=== PATIENT | male | born 1960 | race Caucasian/White ===

== ENCOUNTER 2023-05-30 10:16 | Inpatient (IN) | payer MEDICARE, OTHER ==
[2023-05-30] MEDS ORDERED: SODIUM CHLORIDE 0.9% 500 ML 500 ML IV STA (10:46)
--- NOTE | 2023-05-30 11:05 | XR ---
EXAMINATION TYPE: XR chest 2V DATE OF EXAM: 05/30/2023 COMPARISON: 05/30/2023 INDICATION: Difficulty breathing TECHNIQUE: Frontal and lateral views of the chest are obtained. FINDINGS: The heart size is normal. The pulmonary vasculature is normal. There is a large cavitary lesion with an air-fluid level. On the lateral projection this is estimated to measure 6.5 cm AP by 14.7 cm in craniocaudal dimension. This likely measures approximately 8.5 cm in transverse dimension on the frontal projection. Minimal posterior lateral effusion may be presen t. Left lung appears clear. Additional workup is recommended. IMPRESSION: 1. There appears be a large cavitary lesion with an air-fluid level posterior right lung. Additional workup is recommended.
[2023-05-30] MEDS: SODIUM CHLORIDE 0.9% 1,000 ML IV SCH ×2 (11:18→18:32)
[2023-05-30] MEDS ORDERED: NALOXONE 0.4 MG/ML 1 ML VIAL IV PRN (11:21)
[2023-05-30] MEDS ORDERED: ACETAMINOPHEN TAB 325 MG TAB PO PRN (11:21)
[2023-05-30] MEDS ORDERED: ONDANSETRON 4 MG/2 ML VIAL IVP PRN (11:21)
--- NOTE | 2023-05-30 11:26 | ED ---
General Adult HPI - General Chief complaint: Recheck/Abnormal Lab/Rx Stated complaint: abn US results Time Seen by Provider: 05/30/23 10:23 Source: patient, RN notes reviewed, old records reviewed Mode of arrival: ambulatory Limitations: no limitations - History of Present Illness Initial comments: 63-year-old male presenting for evaluation of effusion, likely empyema. Patient receives an ultrasound as an outpatient and was sent in by his optometric tech Dr. Lee for evaluation. Patient had pneumonia proximally 6 weeks ago which was treated with oral antibiotics. He's had poor appetite and weight loss over the past 6 weeks. Denies current fevers. - Related Data Allergies Allergy/AdvReac Type Severity Reaction Status Date / Time No Known Allergies Allergy Verified 05/30/23 10:43 Review of Systems ROS Statement: Those systems with pertinent positive or pertinent negative responses have been documented in the HPI. ROS Other: All systems not noted in ROS Statement are negative. Past Medical History Past Medical History: Diabetes Mellitus, Hyperlipidemia, Hypertension History of Any Multi-Drug Resistant Organisms: None Reported Past Surgical History: No Surgical Hx Reported Past Psychological History: No Psychological Hx Reported Smoking Status: Never smoker Past Alcohol Use History: Occasional Past Drug Use History: None Reported General Exam Limitations: no limitations General appearance: alert, in no apparent distress Head exam: Present: atraumatic, normocephalic Eye exam: Present: normal appearance, PERRL ENT exam: Present: normal exam Neck exam: Present: normal inspection. Absent: tenderness, meningismus Respiratory exam: Present: rhonchi, decreased breath sounds. Absent: respiratory distress, wheezes Cardiovascular Exam: Present: regular rate, normal rhythm GI/Abdominal exam: Present: soft. Absent: distended, tenderness, guarding Extremities exam: Present: normal capillary refill Neurological exam: Present: alert, oriented X3, CN II-XII intact. Absent: motor sensory deficit Psychiatric exam: Present: normal affect, normal mood Skin exam: Present: warm, dry, intact. Absent: cyanosis, diaphoretic Course Vital Signs 05/30/23 10:40 Temperature 98.4 F Pulse Rate 81 Respiratory 20 Rate Blood Pressure 78/50 O2 Sat by Pulse 96 Oximetry Medical Decision Making - Medical Decision Making Was pt. sent in by a medical professional or institution (, PA, MEDICAL DEVICE ASSEMBLER, urgent care, hospital, or long-term...) When possible be specific @ -Sent in by his optometric tech Dr. Lee Did you speak to anyone other than the patient for history (EMS, parent, family, police, friend...)? What history was obtained from this source @ -No Did you review nursing and triage notes (agree or disagree)? Why? @ -I reviewed and agree with nursing and triage notes Were old charts reviewed (outside hosp., previous admission, EMS record, old EKG, old radiological studies, urgent care reports/EKG's, long-term records)? Report findings @ -No old charts were reviewed Differential Diagnosis (chest pain, altered mental status, abdominal pain women, abdominal pain men, vaginal bleeding, weakness, fever, dyspnea, syncope, headache, dizziness, GI bleed, back pain, seizure, CVA, palpatations, mental health, musculoskeletal)? @ -Differential Dyspnea: Coronary syndrome, arrhythmia, tamponade, asthma, COPD, pulmonary embolism, pneumonia, pneumothorax, pulmonary effusion, anaphylaxis, diabetic ketoacidosis, flailed chest, pulmonary contusion, diaphragmatic rupture, anemia, neuromuscular, this is not meant to be an all-inclusive list. EKG interpreted by me (3pts min.). @ -Sinus rhythm rate of 81, UT interval 158, QRS duration 94, QTC 374, no ST segment elevation. X-rays interpreted by me (1pt min.). @ Chest x-ray showing fluid-filled lesion, possible empyema on the right lung field CT interpreted by me (1pt min.). @ -None done U/S interpreted by me (1pt. min.). @ -None done What testing was considered but not performed or refused? (CT, X-rays, U/S, labs)? Why? @ -None What meds were considered but not given or refused? Why? @ -None Did you discuss the management of the patient with other professionals (p rofessionals i.e. , PA, MEDICAL DEVICE ASSEMBLER, lab, RT, psych nurse, social media project manager, director of content and programming, teacher, chief creative officer, case maker)? Give summary @ -[Dr. Chaney Was smoking cessation discussed for >3mins.? @ -No Was critical care preformed (if so, how long)? @ -No Were there social determinants of health that impacted care today? How? (Homelessness, low income, unemployed, alcoholism, drug addiction, transportation, low edu. Level, literacy, decrease access to med. care, half-way, rehab)? @ -No Was there de-escalation of care discussed even if they declined (Discuss DNR or withdrawal of care, Hospice)? DNR status @ -No What co-morbidities impacted this encounter? (DM, HTN, Smoking, COPD, CAD, Cancer, CVA, ARF, Chemo, Hep., AIDS, mental health diagnosis, sleep apnea, morbid obesity)? @ -[Recent diagnosis of pneumonia Was patient admitted / discharged? Hospital course, mention meds given and route, prescriptions, significant lab abnormalities, going to OR and other pertinent info. @ -[63-year-old male presents from outpatient setting for evaluation of possible empyema. Patient sent in for further evaluation treatment. Workup initiated in the emergency department including laboratory testing, blood cultures, EKG, chest x-ray. Patient will be admitted with consult to pulmonology for possible drainage. Patient admitted to [facility]. Undiagnosed new problem with uncertain prognosis? @ -No Drug Therapy requiring intensive monitoring for toxicity (Heparin, Nitro, Insulin, Cardizem)? @ -No Were any procedures done? @ -No Diagnosis/symptom? @ -[Parapneumonic effusion, empyema Acute, or Chronic, or Acute on Chronic? @ -[Acute Uncomplicated (without systemic symptoms) or Complicated (systemic symptoms)? @ -default Side effects of treatment? @ -No Exacerbation, Progression, or Severe Exacerbation? @ -No Poses a threat to life or bodily function? How? (Chest pain, [place], [place], pneumonia, PE, COPD, DKA, ARF, appy, cholecystitis, CVA, Diverticulitis, Homicidal, Suicidal, threat to staff... and all critical care pts) @ -[Yes, sepsis Disposition Clinical Impression: Empyema lung, Parapneumonic effusion Disposition: ADMITTED IP TO THIS HOSP Condition: Stable Is patient prescribed a controlled substance at d/c from ED?: No Referrals: Pete Stock MD [Primary Care Provider] - 1-2 days Time of Disposition: 11:26
[2023-05-30 11:35] LABS: Basophils % (A) 0 %; Eosinophils # (A) 0.2 k/uL (0-0.7); Eosinophils % (A) 1 %; HCT 34.6 % (39.0-53.0); HGB 11.1 gm/dL (13.0-17.5); Hypochromasia Slight; Lymphocytes # (A) 5.1 k/uL (1.0-4.8); Lymphocytes % (A) 30 %; MCH 30.1 pg (25.0-35.0); MCHC 32.2 g/dL (31.0-37.0); MCV 93.5 fL (80.0-100.0); Monocytes # (A) 0.6 k/uL (0-1.0); Monocytes % (A) 3 %; Neutrophils # (A) 10.6 k/uL (1.3-7.7); Neutrophils % (A) 62 %; Platelet Count 405 k/uL (150-450); RDW 14.5 % (11.5-15.5)
[2023-05-30 11:45] LABS: Prothrombin Time 10.9 sec (9.0-12.0)
[2023-05-30 11:56] LABS: ALT 25 U/L (4-49); AST 18 U/L (17-59); African American GFR (CKD) >90 (>60 ml/min/1.73 sqM); Albumin 3.3 g/dL (3.5-5.0); Alkaline Phosphatase 109 U/L (38-126); Anion Gap 9 mmol/L; Blood Urea Nitrogen 33 mg/dL (9-20); Calcium 9.4 mg/dL (8.4-10.2); Carbon Dioxide 20 mmol/L (22-30); Chloride 107 mmol/L (98-107); Magnesium 1.7 mg/dL (1.6-2.3); Non-African American GFR(CKD) 83 (>60 ml/min/1.73 sqM); Potassium 4.5 mmol/L (3.5-5.1); Sodium 136 mmol/L (137-145); Total Bilirubin 0.4 mg/dL (0.2-1.3); Total Protein 6.9 g/dL (6.3-8.2)
[2023-05-30 12:03] LABS: NT-Pro-B-Type Natriuretic Pept 178 pg/mL
[2023-05-30 12:10] LABS: Glucose 49 mg/dL (74-99)
[2023-05-30] MEDS ORDERED: VANCOMYCIN IV PER PHARMACY 1 EACH MISC MISCELLANE PRN (12:18)
[2023-05-30] MEDS ORDERED: DEXTROSE 50% SYRINGE 50 ML IVP STA (12:19)
[2023-05-30] MEDS: VANCOMYCIN 1,500 MG in SODIUM CHLORIDE 0.9% 500 ML 500 ML IVPB SCH (12:42)
[2023-05-30 12:58] LABS: Glucose,Whole Blood 125 mg/dL (70-110)
--- NOTE | 2023-05-30 13:48 | P.HPIM ---
History of Present Illness H&P Date: 05/30/23 Chief Complaint: Empyema 63-year-old man with a medical history of diabetes, hypertension, hyperlipidemia presented for evaluation of right pleural effusion concerning for empyema. Apparently, patient was diagnosed with pneumonia in mid March and was prescribed antibiotics, however, has been continuing to have generalized fatigue, chills, weight loss of approximately 30 pounds in the last 1-1/2 months. He went to follow-up with his primary care physician who repeated a computed tomography scan of his chest which demonstrated loculated pleural effusion with air fluid l evel concerning for empyema. Patient was subsequently referred to pulmonology and originally had an appointment for June 26, however, his spouse called the office to move up the appointment due to concerns of increasing fatigue/weakness, chills and shortness of breath. He was seen by the pulm onology specialist today who repeated an x-ray which continued to show a loculated pleural effusion and empyema and out of concern asked that the patient presented to the hospital for further evaluation and need for drainage. Patient reports fevers, chills. Denies nausea, vomiting, palpitations. Reports chest pain, pleuritic in nature. Denies syncope, presyncope, cough. Reports dyspnea, especially with exertion. Denies abdominal pain, constipation, diarrhea, dysuria, dyschezia, numbness/weakness of the shoulders. In the emergency room, patient was afebrile, 78/50, heart rate 81, 96% on room air. CBC demonstrated leukocytosis to 17, anemia of 11.1, neutrophil predominant. Basic metabolic panel shows sodium of 136, CO2 of 20, BUN of 33, creatinine of 0.96. Glucose is 49. Liver function tests are unremarkable. BNP was 178. Initial troponin is less than 0.012. Coags are unremarkable. Chest x-ray shows right-sided pleural effusion as well as air fluid level in the mid chest on the right, left atrial enlargement, normal size heart, clear left lung parenchyma. EKG demonstrated normal sinus rhythm with borderline left axis deviation, borderline J-point elevation in leads 1, aVL. Case is discussed the emergency room provider and decision is made with the patient's hospital for further workup of empyema. All Systems reviewed and pertinent positives and negatives noted in HPI, all other symptoms are negative Gen: in no apparent distress, resting comfortably in bed Eyes: PERRL, no scleral injection or icterus HENT: normocephalic, atraumatic, good hearing acuity, moist mucous membranes Neck: no tracheal deviation, full range of motion Resp: good air exchange, breathing comfortably with no accessory muscle use, no tactile fremitus, diminished breath sounds on the right with crackles, no wheezing CVS: good distal perfusion x 4, no pitting edema, regular rate and rhythm with systolic crescendo decrescendo murmur heard best in the aortic space GI: soft, NTTP, ND, no hepatosplenomegaly : no suprapubic tenderness, no CVAT, gillespie catheter not present MSK: no clubbing, no cyanosis, no noted contractures of extremities Skin: no noted rashes, petechiae; temperature of skin is appropriate Neuro: moving all extremities without signs of weakness, CN II-XII intact Psych: cooperative, euthymic mood, insight and judgment intact Labs and imaging as above Assessment: Sepsis secondary to empyema Hypertension Hyperlipidemia Diabetes type 2 Plan: Vital signs reviewed and noted in the HPI Lab work reviewed and noted in the HPI EKG and CXR are personally interpreted and noted in the HPI Case was discussed with the Emergency Room provider and decision was made to admit the patient for empyema with sepsis Start vancomycin, Zosyn Follow-up blood cultures Pulmonology consult for drainage IV fluids: Normal saline 130 mL per hour Patient is full code Past Medical History Past Medical History: Diabetes Mellitus, Hyperlipidemia, Hypertension History of Any Multi-Drug Resistant Organisms: None Reported Past Surgical History: No Surgical Hx Reported Past Psychological History: No Psychological Hx Reported Smoking Status: Never smoker Past Alcohol Use History: Occasional Past Drug Use History: None Reported Medications and Allergies Home Medications Medication Instructions Recorded Confirmed Type Atorvastatin [Lipitor] 20 mg PO HS 05/30/23 05/30/23 History Dulaglutide [Trulicity] 1.5 mg SQ WE 05/30/23 05/30/23 History Ibuprofen [Motrin Ib] 800 mg PO BID 05/30/23 05/30/23 History Lisinopril-Hctz 20-12.5 mg 1 tab PO BID 05/30/23 05/30/23 History [Zestoretic 20-12.5] Pioglitazone [Actos] 15 mg PO HS 05/30/23 05/30/23 History glipiZIDE [Glucotrol] 10 mg PO BID 05/30/23 05/30/23 History metFORMIN HCL [Metformin HCl] 1,000 mg PO BID 05/30/23 05/30/23 History Allergies Allergy/AdvReac Type Severity Reaction Status Date / Time No Known Allergies Allergy Verified 05/30/23 11:45 Physical Exam Osteopathic Statement: *. No significant issues noted on an osteopathic structural exam other than those noted in the History and Physical/Consult. Vitals: Vital Signs Temp Pulse Resp BP Pulse Ox 05/30/23 13:41 97.8 F 75 19 111/60 96 05/30/23 12:22 75 18 114/49 96 05/30/23 11:33 18 05/30/23 11:30 98.8 F 78 18 116/57 95 05/30/23 10:40 98.4 F 81 20 78/50 96 Intake and Output 05/29/23 05/30/23 05/30/23 22:59 06:59 14:59 Other: Weight 95.708 kg Results CBC & Chem 7: 05/30/23 10:58 05/30/23 10:58 Labs: Abnormal Lab Results - Last 24 Hours (Table) 05/30/23 05/30/23 05/30/23 Range/Units 10:58 10:58 12:53 WBC 17.0 H (3.8-10.6) k/uL RBC 3.70 L (4.30-5.90) m/uL Hgb 11.1 L (13.0-17.5) gm/dL Hct 34.6 L (39.0-53.0) % Neutrophils # 10.6 H (1.3-7.7) k/uL Lymphocytes # 5.1 H (1.0-4.8) k/uL Sodium 136 L (137-145) mmol/L Carbon Dioxide 20 L (22-30) mmol/L BUN 33 H (9-20) mg/dL Glucose 49 L* (74-99) mg/dL POC Glucose (mg/dL) 125 H (70-110) mg/dL Albumin 3.3 L (3.5-5.0) g/dL
--- NOTE | 2023-05-30 13:56 | P.CNPUL ---
History of Present Illness Consult date: 05/30/23 Requesting physician: Pete Stock Reason for consult: dyspnea, cough, chest pain, pneumonia, pleural effusion, abnormal CXR/CT Chief complaint: Shortness of breath, chest pain, cough. History of present illness: Pulmonary consult dated 05/30/2023. 63-year-old male who was sent over to the emergency room, by my partner, for empyema, as a complication of a previous episode of pneumonia, and parapneumonic effusion. Apparently, the patient got sick back in March. He apparently saw his primary care doctor was treated for pneumonia. Subsequent to that, because he wasn't really getting any better, he had a CAT scan, followed by another CAT scan, which revealed a complex fluid collection in the right chest. The patient was seen by my partner today, and sent to the hospital for evaluation by interventional radiology for pigtail catheter placement, and instillation of TPA and alpha dornase. According to patient's , the patient hasn't been feeling well since mid March. He's been losing weight, poor color, and just not feeling well. He has had fever, cough, and some phlegm production. In addition, he's had some pain in the right chest and back area. The patient has a history of diabetes, hyperlipidemia, and hypertension. He is a lifelong nonsmoker. White count is 17,000, hemoglobin 11.1, hematocrit 34.6, and a platelet count of 405,000. Sodium 136, potassium 4.5, chlorides 107, CO2 20, anion gap 9, BUN 33, and creatinine 0.96. Glucose 49. Albumin 3.3. Chest x-ray shows an air-fluid level within the right chest, and either a large cavity and/or abscess. The p atient's currently on room air. He was given a dose of Rocephin and vancomycin. Review of Systems REVIEW OF SYSTEMS: CONSTITUTIONAL: Fatigue, weakness, poor color, weight loss. NEUROLOGIC: [ Negative.] HEENT: [ Negative.] CARDIAC: Posterior chest and right back pain. PULMONARY: Cough, shortness of breath, and sputum production. GI: Decreased appetite. : [Negative.] RHEUMATOLOGIC: [ Negative.] IMMUNOLOGIC: [ Negative.] ENDOCRINE: [Negative. ] DERMATOLOGIC: [Negative.] Past Medical History Past Medical History: Diabetes Mellitus, Hyperlipidemia, Hypertension History of Any Multi-Drug Resistant Organisms: None Reported Past Surgical History: No Surgical Hx Reported Past Psychological History: No Psychological Hx Reported Smoking Status: Never smoker Past Alcohol Use History: Occasional Past Drug Use History: None Reported Medications and Allergies Home Medications Medication Instructions Recorded Confirmed Type Atorvastatin [Lipitor] 20 mg PO HS 05/30/23 05/30/23 History Dulaglutide [Trulicity] 1.5 mg SQ WE 05/30/23 05/30/23 History Ibuprofen [Motrin Ib] 800 mg PO BID 05/30/23 05/30/23 History Lisinopril-Hctz 20-12.5 mg 1 tab PO BID 05/30/23 05/30/23 History [Zestoretic 20-12.5] Pioglitazone [Actos] 15 mg PO HS 05/30/23 05/30/23 History glipiZIDE [Glucotrol] 10 mg PO BID 05/30/23 05/30/23 History metFORMIN HCL [Metformin HCl] 1,000 mg PO BID 05/30/23 05/30/23 History Allergies Allergy/AdvReac Type Severity Reaction Status Date / Time No Known Allergies Allergy Verified 05/30/23 11:45 Physical Exam Osteopathic Statement: *. No significant issues noted on an osteopathic structural exam other than those noted in the History and Physical/Consult. Vitals: Vital Signs Temp Pulse Resp BP Pulse Ox 05/30/23 13:41 97.8 F 75 19 111/60 96 05/30/23 12:22 75 18 114/49 96 05/30/23 11:33 18 05/30/23 11:30 98.8 F 78 18 116/57 95 05/30/23 10:40 98.4 F 81 20 78/50 96 Intake and Output 05/29/23 05/30/23 05/30/23 22:59 06:59 14:59 Other: Weight 95.708 kg No acute distress, oriented 3. Currently on room air. Room air saturation is 96%. HEENT examination is grossly unremarkable. Neck supple. Full range of motion. No adenopathy thyromegaly or neck vein distention. Cardiovascular examination reveals regular rhythm rate. S1-S2 normal. No S3 or S4. No discernible murmur noted. Heart rate 75 bpm. Lungs reveal fairly diminished breath sounds on the right, with dullness throughout the right midlung and right lower lobe. Left lung is clear. No wheezes or crackles. Abdomen soft bowel sounds are heard. No masses or tenderness. Extremities are intact. No cyanosis clubbing or edema. Skin is without rash or lesion. Neurologic examination is brief but nonfocal. Results - Laboratory Findings CBC and BMP: 05/30/23 10:58 05/30/23 10:58 PT/INR, D-dimer PT 10.9 sec (9.0-12.0) 05/30/23 10:58 INR 1.0 (<1.2) 05/30/23 10:58 Abnormal lab findings: Abnormal Labs 05/30/23 05/30/23 05/30/23 10:58 10:58 12:53 WBC 17.0 H RBC 3.70 L Hgb 11.1 L Hct 34.6 L Neutrophils # 10.6 H Lymphocytes # 5.1 H Sodium 136 L Carbon Dioxide 20 L BUN 33 H Glucose 49 L* POC Glucose (mg/dL) 125 H Albumin 3.3 L - Diagnostic Findings Chest x-ray: image reviewed Assessment and Plan Assessment: Chronic respiratory illness characterized by weight loss, cough, phlegm production, fatigue, and chest pain, and an x-ray that suggested a fluid-filled abscess in the right chest. Recent episode of pneumonia, with an illness that began about 6 weeks ago. History of hypertension. History of diabetes. History of hyperlipidemia. Lifelong nonsmoker. Plan: Plan dated 05/30/2023. The patient actually looks very stable. He's on room air. He has received both vancomycin and Rocephin here in the emergency department. Interventional radiology will be consulted for possible placement of a pigtail catheter. After that, depending on output, the instillation of TPA, and, alpha dornase, might be beneficial, in improving drainage of the lung abscess. Additional recommendations and suggestions are forthcoming. The patient was seen in the emergency department. The plan is discussed with the patient and the patient's . Time with Patient: Greater than 30
[2023-05-30] MEDS: CEFEPIME 2 GM in SODIUM CHLORIDE 0.9% 100 ML IVPB SCH (17:18)
[2023-05-30 19:51] LABS: Glucose,Whole Blood 96 mg/dL (70-110)
[2023-05-30] MEDS ORDERED: RX INFO: IV CONTRAST WAS GIVEN 1 EACH MISC MISCELLANE PRN (22:15)
[2023-05-30] MEDS: ATORVASTATIN 20 MG TAB PO SCH (22:38)
--- NOTE | 2023-05-31 00:02 | CT ---
EXAM: CT Chest With Intravenous Contrast CLINICAL HISTORY: ITS.REASON CT Reason: Empyema TECHNIQUE: Axial computed tomography images of the chest with intravenous contrast. CTDI is 13.3 mGy and DLP is 503.8 mGy-cm. This CT exam was performed using one or more of the following dose reduction techniques: automated exposure control, adjustment of the mA and/or kV according to patient size, and/or use of iterative reconstruction technique. COMPARISON: No relevant prior studies available. FINDINGS: Lungs: Unremarkable. No mass. No consolidation. Pleural space: Collection of the right lung base with air-fluid level, concerning for intrapulmonary abscess versus empyema. Consider chest tube drainage of this collection, which may be infected. Heart: Cardiomegaly. No significant pericardial effusion. No significant coronary artery calcifications. Bones/joints: Degenerative changes of the spine. No acute fracture. No dislocation. Soft tissues: Unremarkable. Vasculature: Atherosclerotic changes of aorta. No thoracic aortic aneurysm. Lymph nodes: Unremarkable. No enlarged lymph nodes. Liver: Hepatic steatosis. IMPRESSION: Collection of the right lung base with air-fluid level, concerning for intrapulmonary abscess versus empyema. Consider chest tube drainage of this collection, which may be infected.
[2023-05-31] MEDS: CEFEPIME 2 GM in SODIUM CHLORIDE 0.9% 100 ML IVPB SCH ×3 (00:36→16:36)
[2023-05-31] MEDS: SODIUM CHLORIDE 0.9% 1,000 ML IV SCH (03:30)
[2023-05-31] MEDS: VANCOMYCIN 1,500 MG in SODIUM CHLORIDE 0.9% 500 ML 500 ML IVPB SCH ×3 (04:13→21:47)
[2023-05-31 08:00] LABS: Basophils % (A) 0 %; Eosinophils # (A) 0.2 k/uL (0-0.7); Eosinophils % (A) 1 %; HCT 32.5 % (39.0-53.0); HGB 10.4 gm/dL (13.0-17.5); Hypochromasia Slight; Lymphocytes # (A) 4.3 k/uL (1.0-4.8); Lymphocytes % (A) 30 %; MCHC 31.9 g/dL (31.0-37.0); MCV 93.9 fL (80.0-100.0); Mean Platelet Volume 8.3; Monocytes # (A) 0.6 k/uL (0-1.0); Monocytes % (A) 4 %; Neutrophils # (A) 8.8 k/uL (1.3-7.7); Neutrophils % (A) 62 %; Platelet Count 382 k/uL (150-450); RBC 3.46 m/uL (4.30-5.90); RDW 14.5 % (11.5-15.5); WBC 14.2 k/uL (3.8-10.6)
[2023-05-31 08:06] LABS: African American GFR (CKD) >90 (>60 ml/min/1.73 sqM); Anion Gap 9 mmol/L; Blood Urea Nitrogen 16 mg/dL (9-20); Calcium 9.1 mg/dL (8.4-10.2); Carbon Dioxide 20 mmol/L (22-30); Chloride 108 mmol/L (98-107); Glucose 117 mg/dL (74-99); Magnesium 1.5 mg/dL (1.6-2.3); Non-African American GFR(CKD) >90 (>60 ml/min/1.73 sqM); Potassium 4.7 mmol/L (3.5-5.1); Sodium 137 mmol/L (137-145)
[2023-05-31] MEDS ORDERED: DEXTROSE 50% SYRINGE 50 ML IVP PRN ×2 (08:25)
--- NOTE | 2023-05-31 08:28 | P.PN ---
Subjective Progress Note Date: 05/31/23 (seen at 1045) Patient is a 63-year-old male with diabetes, hypertension, and dyslipidemia who was directed to the ER by Dr. Helder newell due to concerns for empyema and right sided pleural effusion. Patient was initially diagnosed with pneumonia in March and was prescribed antibiotics he continued to have generalized fatigue and has lost approximately 30 pounds in the last 1-2 months. Primary care physician repeated CT of the chest which demonstrated loculated pleural effusion with air fluid levels and concern for empyema and the patient was subsequently referred to pulmonology. On his first appointment with pulmonology on 05/30 he was referred to the emergency department. On arrival to the ER he was hypotensive with a blood pressure of 78/50. Laboratory analysis was remarkable for white blood cell count of 17, hemoglobin 11.1, sodium 136, CO2 20, BUN 33, glucose of 49. Chest x-ray showed right-sided pleural effusion with air fluid levels in the mid chest, left atrial enlargement. The patient was subsequently admitted and pulmonary was consulted. Patient was started on cefepime, blood cultures were ordered, and he was started on fluids at 130 mL/h. he was seen by pulmonary who recommended pigtail catheter and continued IV antibiotics. Patient seen and examined at bedside. He is having some pain when the catheter was inserted. He denies any worsening shortness of breath. No nausea or vomiting. He does have lots of questions about how he'll be in the hospital and the plan for his hospitalization. I did answer based the best of my ability. Vital signs reviewed General: nontoxic, no distress, appears at stated age Cardiovascular: S1S2 reg, no murmur, positive posterior tibial pulse bilateral, Lungs: Diminished breath sounds right base bilateral, no rhonchi, no rales , no accessory muscle use Abdominal: soft, nontender to palpation, no guarding, no appreciable organomegaly Ext: no gross muscle atrophy, no edema b/l lower extremities, no contractures Neuro: CN II-XI grossly intact, no focal neuro deficits Psych: Alert, oriented, appropriate affect Assessment/Plan: Empyema versus intrapulmonary abscess s/p pig tail cath Sepsis Hypotension, resolved -Cefepime 2 g every 8 hours IV piggyback daily #2, Zosyn 1500 mg IV piggyback day #2 -Monitor creatinine and vancomycin troughs for toxicity -Pulmonary consult reviewed: Consult interventional radiology for pigtail catheter placement along with instillation of TPA - continue to hold lisinopril and HCTZ, follow BP Diabetes mellitus type II -Hold Actos, glipizide, metformin, and Trulicity -SSI - follow BS - check A1C Chronic: HTN HLD Imaging: CT chest: Right lung base with air-fluid level concern for intrapulmonary abscess versus empyema, consider chest tube drainage Data Review: Labs reviewed and remarkable for white blood cell count 14.2, hemoglobin 10.4, carbon dioxide 20, magnesium 1.5, glucose 117 Vitals reviewed in blood pressures have been 112/60 last night are up to 134/68 today, T-max last 24 hours 98.8, heart rate has been running in the 70s to 80s DVT prophylaxis: Lovenox after IR procedure Discussed with: Patient and Anticipated discharge date: Pending Clinical Course Anticipated discharge place: Pending Clinical Course This dictation was prepared using [employer] voice recognition software. Though every attempt is made to correct errors during dictation some may still exist. Objective - Vital Signs Vital signs: Vital Signs Temp 98 F 05/31/23 06:00 Pulse 80 05/31/23 06:00 Resp 22 05/31/23 06:00 BP 134/68 05/31/23 06:00 Pulse Ox 93 L 05/31/23 06:00 FiO2 Intake & Output 05/30/23 05/31/23 05/31/23 18:59 06:59 18:59 Weight 95.708 kg - Labs CBC & Chem 7: 05/31/23 07:28 05/31/23 07:28 Labs: Abnormal Lab Results - Last 24 Hours (Table) 05/30/23 05/30/23 05/30/23 Range/Units 10:58 10:58 12:53 WBC 17.0 H (3.8-10.6) k/uL RBC 3.70 L (4.30-5.90) m/uL Hgb 11.1 L (13.0-17.5) gm/dL Hct 34.6 L (39.0-53.0) % Neutrophils # 10.6 H (1.3-7.7) k/uL Lymphocytes # 5.1 H (1.0-4.8) k/uL Sodium 136 L (137-145) mmol/L Chloride (98-107) mmol/L Carbon Dioxide 20 L (22-30) mmol/L BUN 33 H (9-20) mg/dL Creatinine (0.66-1.25) mg/dL Glucose 49 L* (74-99) mg/dL POC Glucose (mg/dL) 125 H (70-110) mg/dL Magnesium (1.6-2.3) mg/dL Albumin 3.3 L (3.5-5.0) g/dL 05/31/23 05/31/23 Range/Units 07:28 07:28 WBC 14.2 H (3.8-10.6) k/uL RBC 3.46 L (4.30-5.90) m/uL Hgb 10.4 L (13.0-17.5) gm/dL Hct 32.5 L (39.0-53.0) % Neutrophils # 8.8 H (1.3-7.7) k/uL Lymphocytes # (1.0-4.8) k/uL Sodium (137-145) mmol/L Chloride 108 H (98-107) mmol/L Carbon Dioxide 20 L (22-30) mmol/L BUN (9-20) mg/dL Creatinine 0.55 L (0.66-1.25) mg/dL Glucose 117 H (74-99) mg/dL POC Glucose (mg/dL) (70-110) mg/dL Magnesium 1.5 L (1.6-2.3) mg/dL Albumin (3.5-5.0) g/dL
[2023-05-31] MEDS ORDERED: HYDROmorphone 0.5 MG/0.5 ML SYRINGE IVP STA (09:17)
[2023-05-31] MEDS ORDERED: HYDROmorphone 0.5 MG/0.5 ML SYRINGE IVP PRN (11:15)
[2023-05-31] MEDS ORDERED: LORazepam 2 MG/ML INJ IV PRN ×3 (11:20)
--- NOTE | 2023-05-31 11:45 | CT ---
EXAMINATION TYPE: CT chest tube insertion DATE OF EXAM: 05/31/2023 COMPARISON: CT scan 05/30/2023 HISTORY: Right sided chest tube. CT DLP: 1658 mGycm The procedure is discussed with the patient, the risks, complications, benefits and alternatives, wer e discussed and any questions were answered. Informed consent was obtained. The patient is placed p gracie on the CT table, prepped and draped in the usual sterile fashion. Utilizing a 22-gauge Chiba needle access into large right-sided cavitary lesion suspected to represen t pulmonary abscess was achieved with placement of L1 and L1 8 wire. There is conversion to a 0.035 s ystem, serial dilation 8 Amharic and placement of 8 Amharic drainage catheter. Samples sent to pathology for analysis. Pathology pending. All elements of maximal barrier in sterile technique were utilized. The patient remained stable thro ughout the procedure with no immediate postprocedural complication. IMPRESSION: 1. Successful CT guided chest tube insertion for suspected pulmonary abscess.
[2023-05-31 12:09] LABS: Glucose,Whole Blood 162 mg/dL (70-110)
[2023-05-31] MEDS: INSULIN ASPART (NovoLOG) 100 UNIT/ML VIAL SQ SCH ×2 (12:15→16:35)
[2023-05-31] MEDS: MAGNESIUM SULFATE-D5W PMX 1 GM in DEXTROSE/WATER 1 100ML.BAG IVPB SCH ×2 (12:17→20:48)
--- NOTE | 2023-05-31 12:18 | P.PN ---
Subjective Progress Note Date: 05/31/23 63-year-old male who was sent over to the emergency room, by my partner, for empyema, as a complication of a previous episode of pneumonia, and parapneumonic effusion. Apparently, the patient got sick back in March. He apparently saw his primary care doctor was treated for pneumonia. Subsequent to that, because he wasn't really getting any better, he had a CAT scan, followed by another CAT scan, which revealed a complex fluid collection in the right chest. The patient was seen by my partner today, and sent to the hospital for evaluation by interventional radiology for pigtail catheter placement, and instillation of TPA and alpha dornase. According to patient's , the patient hasn't been feeling well since mid March. He's been losing weight, poor color, and just not feeling well. He has had fever, cough, and some phlegm production. In addition, he's had some pain in the right chest and back area. The patient has a history of diabetes, hyperlipidemia, and hypertension. He is a lifelong nonsmoker. White count is 17,000, hemoglobin 11.1, hematocrit 34.6, and a platelet count of 405 ,000. Sodium 136, potassium 4.5, chlorides 107, CO2 20, anion gap 9, BUN 33, and creatinine 0.96. Glucose 49. Albumin 3.3. Chest x-ray shows an air-fluid level within the right chest, and either a large cavity and/or abscess. The patient's currently on room air. He was given a dose of Rocephin and vancomycin. The patient is seen today 05/31/2023 in follow-up, in the emergency department. He is currently sitting up on a stretcher. Awake and alert in no acute distress. Somewhat restless. He is maintaining good O2 saturations in the mid 90s on room air. He's afebrile. Hemodynamically stable. Computed tomography scan of the chest revealed a collection of the right lung base with air fluid level, concerning for intrapulmonary abscess versus empyema. White count 14.2. Hemoglobin 10.4. Platelets 382. Sodium 137. Potassium 4.7. Bicarb 20. BUN 16. Creatinine 0.55. Glucose 117. He is continued on cefepime and vancomycin. Plan is for pigtail catheter placement today by interventional radiology. Objective - Vital Signs Vital signs: Vital Signs Temp 98 F 05/31/23 06:00 Pulse 85 05/31/23 09:45 Resp 16 05/31/23 09:45 BP 152/76 05/31/23 09:45 Pulse Ox 96 05/31/23 09:45 FiO2 Intake & Output 05/30/23 05/31/23 05/31/23 18:59 06:59 18:59 Weight 95.708 kg - Exam GENERAL EXAM: Alert, 63-year-old male on room air, fairly comfortable in no apparent distress. HEAD: Normocephalic. EYES: Normal reaction of pupils, equal size. NOSE: Clear with pink turbinates. THROAT: No erythema or exudates. NECK: No masses, no JVD. CHEST: No chest wall deformity. LUNGS: Equal air entry with few scattered rhonchi in the right lung base. CVS: S1 and S2 normal with no audible murmur, regular rhythm. ABDOMEN: No hepatosplenomegaly, normal bowel sounds, no guarding or rigidity. SPINE: No scoliosis or deformity SKIN: No rashes CENTRAL NERVOUS SYSTEM: No focal deficits, tone is normal in all 4 extremities. EXTREMITIES: There is no peripheral edema. No clubbing, no cyanosis. Peripheral pulses are intact. - Labs CBC & Chem 7: 05/31/23 07:28 05/31/23 07:28 Labs: Abnormal Lab Results - Last 24 Hours (Table) 05/30/23 05/30/23 05/31/23 Range/Units 10:58 12:53 07:28 WBC 14.2 H (3.8-10.6) k/uL RBC 3.46 L (4.30-5.90) m/uL Hgb 10.4 L (13.0-17.5) gm/dL Hct 32.5 L (39.0-53.0) % Neutrophils # 10.6 H 8.8 H (1.3-7.7) k/uL Lymphocytes # 5.1 H (1.0-4.8) k/uL Chloride (98-107) mmol/L Carbon Dioxide (22-30) mmol/L Creatinine (0.66-1.25) mg/dL Glucose (74-99) mg/dL POC Glucose (mg/dL) 125 H (70-110) mg/dL Magnesium (1.6-2.3) mg/dL 05/31/23 05/31/23 Range/Units 07:28 12:07 WBC (3.8-10.6) k/uL RBC (4.30-5.90) m/uL Hgb (13.0-17.5) gm/dL Hct (39.0-53.0) % Neutrophils # (1.3-7.7) k/uL Lymphocytes # (1.0-4.8) k/uL Chloride 108 H (98-107) mmol/L Carbon Dioxide 20 L (22-30) mmol/L Creatinine 0.55 L (0.66-1.25) mg/dL Glucose 117 H (74-99) mg/dL POC Glucose (mg/dL) 162 H (70-110) mg/dL Magnesium 1.5 L (1.6-2.3) mg/dL Assessment and Plan Assessment: Chronic respiratory illness characterized by weight loss, cough, phlegm production, fatigue, and chest pain, and an x-ray that suggested a fluid-filled abscess in the right chest. The CAT scan of the chest reveals a collection of the right lung base with air fluid level, concerning for intrapulmonary abscess versus empyema. Plan is for pigtail catheter insertion today 05/31/2023 Recent episode of pneumonia, with an illness that began about 6 weeks ago. History of hypertension. History of diabetes. History of hyperlipidemia. Lifelong nonsmoker. Plan: The patient was seen and evaluated CAT scan, labs and medications reviewed Plan is for pigtail catheter insertion today Continued on vancomycin and cefepime Add [facility] protocol for possible alcohol withdrawal We will continue to follow and make further recommendations based on his clinical status I have personally seen and examined the patient, performed the documentation and the assessment and plan as written. Number of minutes spent on the visit: 10.
[2023-05-31] MEDS: HYDROcodone/APAP 7.5-325MG 1 EACH TAB PO PRN ×2 (12:40→20:02)
[2023-05-31 16:30] LABS: Glucose,Whole Blood 182 mg/dL (70-110)
[2023-05-31] MEDS: MELATONIN 5 MG TABLET PO SCH (20:02)
[2023-05-31] MEDS: ATORVASTATIN 20 MG TAB PO SCH (20:02)
[2023-05-31 20:13] LABS: Glucose,Whole Blood 213 mg/dL (70-110)
[2023-06-01] MEDS: CEFEPIME 2 GM in SODIUM CHLORIDE 0.9% 100 ML IVPB SCH ×3 (01:03→19:48)
[2023-06-01 03:05] LABS: Amylase, Fluid Source Pleural Fluid; Amylase,Body Fluid 16 U/L; T. Protein, Body Fluid Source Pleural Fluid; Total Protein, Body Fluid 3560 mg/dL
[2023-06-01 03:06] LABS: Appearance,BF Turbid (Clear)
[2023-06-01 03:56] LABS: Glucose, BF Source Pleural Fluid; Glucose, Body Fluid <2 mg/dL; LDH, Body Fluid Source Pleural Fluid
[2023-06-01] MEDS: VANCOMYCIN 1,500 MG in SODIUM CHLORIDE 0.9% 500 ML 500 ML IVPB SCH ×2 (05:35→16:43)
[2023-06-01 06:04] LABS: Glucose,Whole Blood 150 mg/dL (70-110)
[2023-06-01] MEDS: INSULIN ASPART (NovoLOG) 100 UNIT/ML VIAL SQ SCH ×3 (06:05→16:44)
--- NOTE | 2023-06-01 08:07 | XR ---
EXAMINATION TYPE: XR chest 1V portable DATE OF EXAM: 06/01/2023 HISTORY: Shortness of breath. COMPARISON: 05/30/2023 TECHNIQUE: Single view of the chest is submitted. FINDINGS: Right midlung zone pleural drainage catheter noted. No evidence for pneumothorax. Previously noted co llection is significantly smaller in size. Small right-sided pleural effusion. There is no evidence for focal infiltrate. The heart is stable. Hilar and mediastinal structures are within normal limits. Degenerative changes are seen of the dorsal spine. IMPRESSION: 1. As above
[2023-06-01] MEDS ORDERED: ENOXAPARIN 40 MG/0.4 ML SYRINGE SQ SCH (09:00)
[2023-06-01 09:05] LABS: HCT 31.9 % (39.0-53.0); HGB 10.2 gm/dL (13.0-17.5); Hypochromasia Slight; MCH 29.6 pg (25.0-35.0); MCHC 31.9 g/dL (31.0-37.0); MCV 92.8 fL (80.0-100.0); Mean Platelet Volume 7.8; Platelet Count 367 k/uL (150-450); RBC 3.44 m/uL (4.30-5.90); RDW 14.4 % (11.5-15.5); WBC 12.1 k/uL (3.8-10.6)
[2023-06-01 09:20] LABS: African American GFR (CKD) >90 (>60 ml/min/1.73 sqM); Anion Gap 6 mmol/L; Blood Urea Nitrogen 12 mg/dL (9-20); Calcium 8.9 mg/dL (8.4-10.2); Carbon Dioxide 24 mmol/L (22-30); Chloride 105 mmol/L (98-107); Glucose 250 mg/dL (74-99); Non-African American GFR(CKD) >90 (>60 ml/min/1.73 sqM); Potassium 4.9 mmol/L (3.5-5.1); Sodium 135 mmol/L (137-145)
[2023-06-01] MEDS: FOLIC ACID 1 MG TAB PO SCH (09:52)
[2023-06-01] MEDS: THIAMINE 100 MG TAB PO SCH (09:52)
--- NOTE | 2023-06-01 10:58 | P.PN ---
Subjective Progress Note Date: 06/01/23 Principal diagnosis: Empyema. 63-year-old male who was sent over to the emergency room, by my partner, for empyema, as a complication of a previous episode of pneumonia, and parapneumonic effusion. Apparently, the patient got sick back in March. He apparently saw his primary care doctor was treated for pneumonia. Subsequent to that, because he wasn't really getting any better, he had a CAT scan, followed by another CAT scan, which revealed a complex fluid collection in the right chest. The patient was seen by my partner today, and sent to the hospital for evaluation by interventional radiology for pigtail catheter placement, and instillation of TPA and alpha dornase. According to patient's , the patient hasn't been feeling well since mid March. He's been losing weight, poor color, and just not feeling well. He has had fever, cough, and some phlegm production. In addition, he's had some pain in the right chest and back area. The patient has a history of d iabetes, hyperlipidemia, and hypertension. He is a lifelong nonsmoker. White count is 17,000, hemoglobin 11.1, hematocrit 34.6, and a platelet count of 405,000. Sodium 136, potassium 4.5, chlorides 107, CO2 20, anion gap 9, BUN 33, and creatinine 0.96. Glucose 49. Albumin 3.3. Chest x-ray shows an air-fluid level within the right chest, and either a large cavity and/or abscess. The patient's currently on room air. He was given a dose of Rocephin and vancomycin. The patient is seen today 05/31/2023 in follow-up, in the emergency department. He is currently sitting up on a stretcher. Awake and alert in no acute distress. Somewhat restless. He is maintaining good O2 saturations in the mid 90s on room air. He's afebrile. Hemodynamically stable. Computed tomography scan of the chest revealed a collection of the right lung base with air fluid level, concerning for intrapulmonary abscess versus empyema. White count 14.2. Hemoglobin 10.4. Platelets 382. Sodium 137. Potassium 4.7. Bicarb 20. BUN 16. Creatinine 0.55. Glucose 117. He is continued on cefepime and vancomycin. Plan is for pigtail catheter placement today by interventional radiology. Progress note dated 06/01/2023. The patient is seen today in room 356. He is currently on room air. Is not receiving any IV fluids. He is receiving both vancomycin and cefepime for his suspected empyema. A pigtail catheter was placed on the right side, they interventional radiology yesterday. The patient had about 85 mL of output. White count 12.1, hemoglobin 10.2, hematocrit 31.9, within normal platelet cou nt. Sodium 135, potassium 4.9, chlorides 105, CO2 24, BUN 12, and creatinine 0.54. Cultures are currently pending. Chest x-ray shows a right-sided pigtail catheter, with improvement of the abscess in the right lower lobe. Objective - Vital Signs Vital signs: Vital Signs Temp 98.4 F 06/01/23 03:20 Pulse 87 06/01/23 03:20 Resp 18 06/01/23 03:20 BP 127/63 06/01/23 03:20 Pulse Ox 96 06/01/23 03:20 FiO2 Intake & Output 05/31/23 06/01/23 06/01/23 18:59 06:59 18:59 Output Total 307 1285 Balance -307 -1285 Weight 95.708 kg Output: Chest Tube Drainage 57 85 Pleural Catheter Right 57 85 Posterior Chest Urine 250 1200 Other: # Voids 3 - Exam No acute distress, oriented 3. Currently on room air. HEENT examination is grossly unremarkable. Mucous membranes are moist. No oral lesions. Neck supple. Full range of motion. No adenopathy thyromegaly or neck vein distention. Cardiovascular examination reveals regular rhythm rate. S1-S2 normal. No S3 or S4. No discernible murmur noted. Heart rate 87 bpm. Lungs reveal diminished breath sounds throughout the right midlung and right base. Scattered rhonchi noted. No wheezes or crackles. Abdomen soft bowel sounds are heard. No masses or tenderness. Extremities are intact. No cyanosis clubbing or edema. Skin is without rash or lesion. Neurologic examination is brief but nonfocal. - Labs CBC & Chem 7: 06/01/23 08:30 06/01/23 08:30 Labs: Abnormal Lab Results - Last 24 Hours (Table) 05/31/23 05/31/23 05/31/23 Range/Units 09:30 12:07 16:29 WBC (3.8-10.6) k/uL RBC (4.30-5.90) m/uL Hgb (13.0-17.5) gm/dL Hct (39.0-53.0) % Sodium (137-145) mmol/L Creatinine (0.66-1.25) mg/dL Glucose (74-99) mg/dL POC Glucose (mg/dL) 162 H 182 H (70-110) mg/dL Fluid Appearance Turbid A (Clear) 05/31/23 06/01/23 06/01/23 Range/Units 20:11 06:02 08:30 WBC 12.1 H (3.8-10.6) k/uL RBC 3.44 L (4.30-5.90) m/uL Hgb 10.2 L (13.0-17.5) gm/dL Hct 31.9 L (39.0-53.0) % Sodium (137-145) mmol/L Creatinine (0.66-1.25) mg/dL Glucose (74-99) mg/dL POC Glucose (mg/dL) 213 H 150 H (70-110) mg/dL Fluid Appearance (Clear) 06/01/23 Range/Units 08:30 WBC (3.8-10.6) k/uL RBC (4.30-5.90) m/uL Hgb (13.0-17.5) gm/dL Hct (39.0-53.0) % Sodium 135 L (137-145) mmol/L Creatinine 0.54 L (0.66-1.25) mg/dL Glucose 250 H (74-99) mg/dL POC Glucose (mg/dL) (70-110) mg/dL Fluid Appearance (Clear) Microbiology - Last 24 Hours (Table) 05/31/23 09:30 Gram Stain - Preliminary Pleural Fluid 05/30/23 10:50 Blood Culture - Preliminary Blood 05/30/23 11:23 Blood Culture - Preliminary Blood Assessment and Plan Assessment: Chronic respiratory illness characterized by weight loss, cough, phlegm production, fatigue, and chest pain, and an x-ray that suggested a fluid-filled abscess in the right chest. S/P pigtail catheter insertion, right posterior chest, 05/31/2023. Recent episode of pneumonia, with an illness that began about 6 weeks ago. History of hypertension. History of diabetes. History of hyperlipidemia. Lifelong nonsmoker. Plan: Plan dated 05/30/2023. The patient actually looks very stable. He's on room air. He has received both vancomycin and Rocephin here in the emergency department. Interventional radiology will be consulted for possible placement of a pigtail catheter. After that, depending on output, the instillation of TPA, and, alpha dornase, might be beneficial, in improving drainage of the lung abscess. Additional recommen dations and suggestions are forthcoming. The patient was seen in the emergency department. The plan is discussed with the patient and the patient's . Plan dated 06/01/2023. The patient continues on vancomycin and cefepime. A pigtail catheter was placed yesterday, May 31, by interventional radiology. About 85 mL of output was recorded. The patient's on room air. He's not receiving any IV drugs. Continue to follow and make recommendations along the way. Microbiology thus far negative. Prognosis is guarded. Time with Patient: Less than 30
[2023-06-01 11:45] LABS: Glucose,Whole Blood 200 mg/dL (70-110)
--- NOTE | 2023-06-01 14:08 | P.PN ---
Subjective Progress Note Date: 06/01/23 (delayed charting seen at 1030) Patient is a 63-year-old male with diabetes, hypertension, and dyslipidemia who was directed to the ER by Dr. Helder newell due to concerns for empyema and right sided pleural effusion. Patient was initially diagnosed with pneumonia in March and was prescribed antibiotics he continued to have generalized fatigue and has lost approximately 30 pounds in the last 1-2 months. Primary care physician repeated CT of the chest which demonstrated loculated pleural effusion with air fluid levels and concern for empyema and the patient was subsequently referred t o pulmonology. On his first appointment with pulmonology on 05/30 he was referred to the emergency department. On arrival to the ER he was hypotensive with a blood pressure of 78/50. Laboratory analysis was remarkable for white blood cell count of 17, hemoglobin 11.1, sodium 136, CO2 20, BUN 33, glucose of 49. Chest x-ray showed right-sided pleural effusion with air fluid levels in the mid chest, left atrial enlargement. The patient was subsequently admitted and pulmonary was consulted. Patient was started on cefepime, blood cultures were ordered, and he was started on fluids at 130 mL/h. he was seen by pulmonary who recommended pigtail catheter and continued IV antibiotics. Patient seen and examined at bedside. He is having some pain when the catheter was inserted. He denies any worsening shortness of breath. No nausea or vomiting. He does have lots of questions about how he'll be in the hospital and the plan for his hospitalization. I did answer based the best of my ability. Vital signs reviewed General: nontoxic, no distress, appears at stated age Cardiovascular: S1S2 reg, no murmur, positive posterior tibial pulse bilateral, Lungs: Diminished breath sounds right base bilateral, no rhonchi, no rales , no accessory muscle use, pig tail cath in place Abdominal: soft, nontender to palpation, no guarding, no appreciable organomegaly Ext: no gross muscle atrophy, no edema b/l lower extremities, no contractures Neuro: CN II-XI grossly intact, no focal neuro deficits Psych: Alert, oriented, appropriate affect Assessment/Plan: Empyema versus intrapulmonary abscess s/p pig tail cath 05/31/23 Sepsis Hypotension, resolved -Cefepime 2 g every 8 hours IV piggyback daily #3, Vanco 1500 mg IV piggyback day #3 -Monitor creatinine and vancomycin troughs for toxicity -Pulmonary note reviewed: Continue with vancomycin and cefepime - continue to hold lisinopril and HCTZ, follow BP - await cultures Diabetes mellitus type II -Hold Actos, glipizide, metformin, and Trulicity -SSI -Add Levemir 10 units at night - follow BS - Await A1C Chronic: HTN HLD Imaging: CXR reviewed by myself resolution of fluid within right major fissure Data Review: Vitals reviewed in T-max last 24 hours 98.4 and vital show pulse 77, respirations 16, blood pressure 132/66, O2 sat 97% on room air Laboratory analysis remarkable for white blood cell count 12.1, hemoglobin 10.2, sodium 135, creatinine 0.54, a.m. blood glucose 150, last evening blood glucoses were 213 & 182 DVT prophylaxis: Lovenox Discussed with: Patient Anticipated discharge date: Pending Clinical Course Anticipated discharge place: Pending Clinical Course This dictation was prepared using [employer] voice recognition software. Though every attempt is made to correct errors during dictation some may still exist. Objective - Vital Signs Vital signs: Vital Signs Temp 97.6 F 06/01/23 12:00 Pulse 75 06/01/23 12:00 Resp 18 06/01/23 12:00 BP 141/68 06/01/23 12:00 Pulse Ox 98 06/01/23 12:45 FiO2 Intake & Output 05/31/23 06/01/23 06/01/23 18:59 06:59 18:59 Output Total 307 1285 1450 Balance -307 -1285 -1450 Weight 95.708 kg Output: Chest Tube Drainage 57 85 Pleural Catheter Right 57 85 Posterior Chest Urine 250 1200 1450 Other: # Voids 3 - Labs CBC & Chem 7: 06/01/23 08:30 06/01/23 08:30 Labs: Abnormal Lab Results - Last 24 Hours (Table) 05/31/23 05/31/23 05/31/23 Range/Units 09:30 16:29 20:11 WBC (3.8-10.6) k/uL RBC (4.30-5.90) m/uL Hgb (13.0-17.5) gm/dL Hct (39.0-53.0) % Sodium (137-145) mmol/L Creatinine (0.66-1.25) mg/dL Glucose (74-99) mg/dL POC Glucose (mg/dL) 182 H 213 H (70-110) mg/dL Fluid Appearance Turbid A (Clear) 06/01/23 06/01/23 06/01/23 Range/Units 06:02 08:30 08:30 WBC 12.1 H (3.8-10.6) k/uL RBC 3.44 L (4.30-5.90) m/uL Hgb 10.2 L (13.0-17.5) gm/dL Hct 31.9 L (39.0-53.0) % Sodium 135 L (137-145) mmol/L Creatinine 0.54 L (0.66-1.25) mg/dL Glucose 250 H (74-99) mg/dL POC Glucose (mg/dL) 150 H (70-110) mg/dL Fluid Appearance (Clear) 06/01/23 Range/Units 11:44 WBC (3.8-10.6) k/uL RBC (4.30-5.90) m/uL Hgb (13.0-17.5) gm/dL Hct (39.0-53.0) % Sodium (137-145) mmol/L Creatinine (0.66-1.25) mg/dL Glucose (74-99) mg/dL POC Glucose (mg/dL) 200 H (70-110) mg/dL Fluid Appearance (Clear) Microbiology - Last 24 Hours (Table) 05/31/23 09:30 Gram Stain - Preliminary Pleural Fluid 05/30/23 10:50 Blood Culture - Preliminary Blood 05/30/23 11:23 Blood Culture - Preliminary Blood
[2023-06-01 16:42] LABS: Glucose,Whole Blood 137 mg/dL (70-110)
[2023-06-01] MEDS ORDERED: VANCOMYCIN TROUGH DUE 1 EACH MISC MISCELLANE ONE (20:00)
[2023-06-01] MEDS: MELATONIN 5 MG TABLET PO SCH (20:26)
[2023-06-01] MEDS: INSULIN DETEMIR (LEVEMIR) 100 UNIT/ML SYR SQ SCH (20:26)
[2023-06-01] MEDS: ATORVASTATIN 20 MG TAB PO SCH (20:26)
[2023-06-01 20:28] LABS: Glucose,Whole Blood 197 mg/dL (70-110)
[2023-06-01] MEDS ORDERED: METOPROLOL TARTRATE 5 MG/5 ML VIAL IVP STA (22:34)
--- NOTE | 2023-06-01 22:36 | P.PN ---
Progress Note - Text Progress Note Date: 06/01/23 Informed by the patient's RN that the patient was tachycardic on telemetry and that subsequent EKG revealed Afib with RVR with pulse 100-120s. Lopressor IVP and PO ordered. Cardiology consulted. Echocardiogram ordered.
[2023-06-01] MEDS ORDERED: METOPROLOL TARTRATE 50 MG TAB PO SCH (22:45)
[2023-06-01] MEDS: DILTIAZEM 125 MG in SODIUM CHLORIDE 0.9% 100 ML IV SCH (23:04)
[2023-06-01] MEDS: ENOXAPARIN 100 MG/ML SYRINGE SQ SCH (23:04)
[2023-06-02] MEDS ORDERED: VANCOMYCIN TROUGH DUE 1 EACH MISC MISCELLANE ONE
[2023-06-02] MEDS: VANCOMYCIN 1,500 MG in SODIUM CHLORIDE 0.9% 500 ML 500 ML IVPB SCH ×3 (01:04→17:42)
[2023-06-02 01:14] LABS: African American GFR (CKD) >90 (>60 ml/min/1.73 sqM); Non-African American GFR(CKD) >90 (>60 ml/min/1.73 sqM)
[2023-06-02] MEDS: CEFEPIME 2 GM in SODIUM CHLORIDE 0.9% 100 ML IVPB SCH ×3 (04:15→20:37)
[2023-06-02 06:18] LABS: Glucose,Whole Blood 146 mg/dL (70-110)
[2023-06-02] MEDS: INSULIN ASPART (NovoLOG) 100 UNIT/ML VIAL SQ SCH ×5 (06:22→17:09)
--- NOTE | 2023-06-02 07:08 | P.CRDCN ---
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 The patient was struggling with a pneumonia a few months ago. Because he continues to be symptomatic interim of cough productive of sputum as well as weight loss as well as multiple other symptoms he underwent a computed tomography scan and that showed fluid collection in the right pleural space consistent of possible abscess and infection. The patient was subsequently admitted and started on antibiotic. We consulted to see the patient because of atrial fibrillation with RVR which is new to him. The patient never been diagnosed was atrial fibrillation before. The patient was asymptomatic in terms of heart racing or fluttering or dizziness or lightheadedness or any symptoms of chest pain or chest discomfort. He continues to be in atrial fibrillation with overall controlled heart rate on the current dose of Cardizem IV. He was on Lovenox at a daily dose which I increased it to twice a day at this point. We'll consider starting the patient on oral anticoagulation once we know that he doesn't need any further surgical procedure. An echocardiogram is in process to be done The examination is remarkable for stable vital signs with irregular rhythm and diminished breathing sounds over the right side with evidence of pigtail catheter in the right chest. No lower extremity edema noted Assessment Fluid collection in the right chest was possible abscess Status post pigtail catheter in the right pleural space Atrial fibrillation with controlled heart rate. This is new diagnosed as the patient Multiple comorbid conditions including diabetes and hypertension and dyslipidemia Plan Continue Cardizem IV Consider starting the patient on oral AV lakisha ysabel agents Continue Lovenox twice a day at this point Further recommendation to follow the echocardiogram Past Medical History Past Medical History: Diabetes Mellitus, Hyperlipidemia, Hypertension History of Any Multi-Drug Resistant Organisms: None Reported Past Surgical History: Joint Replacement, Orthopedic Surgery Additional Past Surgical History / Comment(s): BILATERAL KNEE REPLACEMENT Past Anesthesia/Blood Transfusion Reactions: No Reported Reaction Past Psychological History: No Psychological Hx Reported Smoking Status: Never smoker Past Alcohol Use History: Occasional Past Drug Use History: None Reported - Past Family History Father Family Medical History: Coronary Artery Disease (CAD) Mother Family Medical History: CVA/TIA Medications and Allergies Home Medications Medication Instructions Recorded Confirmed Type Atorvastatin [Lipitor] 20 mg PO HS 05/30/23 05/30/23 History Dulaglutide [Trulicity] 1.5 mg SQ WE 05/30/23 05/30/23 History Ibuprofen [Motrin Ib] 800 mg PO BID 05/30/23 05/30/23 History Lisinopril-Hctz 20-12.5 mg 1 tab PO BID 05/30/23 05/30/23 History [Zestoretic 20-12.5] Pioglitazone [Actos] 15 mg PO HS 05/30/23 05/30/23 History glipiZIDE [Glucotrol] 10 mg PO BID 05/30/23 05/30/23 History metFORMIN HCL [Metformin HCl] 1,000 mg PO BID 05/30/23 05/30/23 History Allergies Allergy/AdvReac Type Severity Reaction Status Date / Time No Known Allergies Allergy Verified 05/31/23 11:51 Physical Exam Vitals: Vital Signs Temp Pulse Resp BP Pulse Ox 06/02/23 03:02 98.2 F 95 20 112/59 93 L 06/01/23 23:45 133 H 122/77 06/01/23 23:30 122 H 137/82 06/01/23 23:15 133 H 134/73 06/01/23 23:00 98.1 F 120 H 18 124/79 95 06/01/23 20:00 98.1 F 76 20 117/59 97 06/01/23 16:00 98.3 F 77 18 136/70 97 06/01/23 12:45 98 06/01/23 12:00 97.6 F 75 18 141/68 96 06/01/23 08:00 98.4 F 77 16 132/66 97 Intake and Output 06/01/23 06/02/23 06/02/23 22:59 06:59 14:59 Intake Total 221 Output Total 10 2420 Balance 211 -2420 Intake: Oral 221 Output: Chest Tube Drainage 10 20 Pleural Catheter Right 10 20 Posterior Chest Urine 2400 Other: Weight 96.5 kg Results 06/01/23 08:30 06/02/23 00:10 CBC 06/01/23 Range/Units 08:30 WBC 12.1 H (3.8-10.6) k/uL RBC 3.44 L (4.30-5.90) m/uL Hgb 10.2 L (13.0-17.5) gm/dL Hct 31.9 L (39.0-53.0) % Plt Count 367 (150-450) k/uL Comprehensive Metabolic Panel 06/01/23 06/02/23 Range/Units 08:30 00:10 Sodium 135 L (137-145) mmol/L Potassium 4.9 (3.5-5.1) mmol/L Chloride 105 (98-107) mmol/L Carbon Dioxide 24 (22-30) mmol/L BUN 12 (9-20) mg/dL Creatinine 0.54 L 0.43 L (0.66-1.25) mg/dL Glucose 250 H (74-99) mg/dL Calcium 8.9 (8.4-10.2) mg/dL Current Medications Generic Name Dose Route Start Last Admin Trade Name Freq PRN Reason Stop Dose Admin Acetaminophen 650 mg 05/30/23 11:21 Acetaminophen Tab 325 Mg Tab PO Q6HR PRN Mild Pain or Fever > 100.5 Hydrocodone Bitart/Acetaminophen 1 each 05/31/23 11:15 05/31/23 20:02 Hydrocodone/Apap 7.5-325mg 1 Each Tab PO 1 each Q6HR PRN Administration Mild to Moderate Pain (1 - 6) Atorvastatin Calcium 20 mg 05/30/23 21:45 06/01/23 20:26 Atorvastatin 20 Mg Tab PO 20 mg HS EDGARDO Administration Dextrose/Water 25 ml 05/31/23 08:25 Dextrose 50% Syringe 50 Ml IVP PER PROTOCOL PRN Hypoglycemia Protocol Dextrose/Water 50 ml 05/31/23 08:25 Dextrose 50% Syringe 50 Ml IVP PER PROTOCOL PRN Hypoglycemia Protocol Enoxaparin Sodium 100 mg 06/01/23 23:00 06/01/23 23:04 Enoxaparin 100 Mg/Ml Syringe SQ 100 mg Q12H EDGARDO Administration Folic Acid 1 mg 06/01/23 09:00 06/01/23 09:52 Folic Acid 1 Mg Tab PO 1 mg DAILY EDGARDO Administration Hydromorphone HCl 0.5 mg 05/31/23 11:15 Hydromorphone 0.5 Mg/0.5 Ml Syringe IVP Q3HR PRN Severe Pain (Scale 7 to 10) Vancomycin HCl 1,500 mg/ 500 mls @ 167 mls/hr 06/02/23 01:00 06/02/23 01:04 Sodium Chloride IVPB 167 mls/hr Q8H EDGARDO Administration Cefepime HCl 2 gm/ Sodium 100 mls @ 25 mls/hr 06/02/23 04:00 06/02/23 04:15 Chloride IVPB 25 mls/hr Q8H EDGARDO Administration Protocol Diltiazem HCl 125 mg/ Sodium 125 mls @ 5 mls/hr 06/01/23 23:00 06/01/23 23:04 Chloride IV 5 mg/hr .Q24H EDGARDO 5 mls/hr Administration 5 MG/HR Insulin Aspart 0 unit 05/31/23 12:30 06/02/23 06:22 Insulin Aspart (Novolog) 100 Unit/Ml Vial SQ Not Given AC-TID [facility] Protocol Insulin Detemir 10 unit 06/01/23 21:00 06/01/23 20:26 Insulin Detemir (Levemir) 100 Unit/Ml Syr SQ 10 unit HS EDGARDO Administration Lorazepam 1 mg 05/31/23 11:20 Lorazepam 2 Mg/Ml Inj IV Q1HR PRN CIWA 10 to 15 Lorazepam 1 mg 05/31/23 11:20 Lorazepam 2 Mg/Ml Inj IV Q2HR PRN CIWA 8 or 9 Lorazepam 2 mg 05/31/23 11:20 Lorazepam 2 Mg/Ml Inj IV 06/02/23 11:20 Q10M PRN CIWA 16 or higher Melatonin 5 mg 05/31/23 21:00 06/01/23 20:26 Melatonin 5 Mg Tablet PO 5 mg HS EDGARDO Administration Naloxone HCl 0.2 mg 05/30/23 11:21 Naloxone 0.4 Mg/Ml 1 Ml Vial IV Q2M PRN Opioid Reversal Ondansetron HCl 4 mg 05/30/23 11:21 Ondansetron 4 Mg/2 Ml Vial IVP Q8HR PRN Nausea And Vomiting Thiamine HCl 100 mg 06/01/23 09:00 06/01/23 09:52 Thiamine 100 Mg Tab PO 100 mg DAILY EDGARDO Administration Intake and Output 06/01/23 06/02/23 06/02/23 22:59 06:59 14:59 Intake Total 221 Output Total 10 2420 Balance 211 -2420 Intake: Oral 221 Output: Chest Tube Drainage 10 20 Pleural Catheter Right 10 20 Posterior Chest Urine 2400 Other: Weight 96.5 kg 06/01/23 08:30 06/02/23 00:10
[2023-06-02 09:03] LABS: HCT 34.4 % (39.0-53.0); HGB 11.2 gm/dL (13.0-17.5); Hypochromasia Slight; MCH 30.4 pg (25.0-35.0); MCHC 32.5 g/dL (31.0-37.0); MCV 93.6 fL (80.0-100.0); Mean Platelet Volume 7.9; Platelet Count 353 k/uL (150-450); RBC 3.67 m/uL (4.30-5.90); RDW 14.4 % (11.5-15.5); WBC 10.9 k/uL (3.8-10.6)
[2023-06-02] MEDS: FOLIC ACID 1 MG TAB PO SCH (09:19)
[2023-06-02] MEDS: THIAMINE 100 MG TAB PO SCH (09:19)
[2023-06-02] MEDS: METOPROLOL TARTRATE 25 MG TAB PO SCH ×2 (09:19→20:36)
[2023-06-02 09:54] LABS: African American GFR (CKD) >90 (>60 ml/min/1.73 sqM); Anion Gap 8 mmol/L; Blood Urea Nitrogen 10 mg/dL (9-20); Calcium 8.9 mg/dL (8.4-10.2); Carbon Dioxide 21 mmol/L (22-30); Chloride 107 mmol/L (98-107); Glucose 346 mg/dL (74-99); Non-African American GFR(CKD) >90 (>60 ml/min/1.73 sqM); Potassium 4.5 mmol/L (3.5-5.1); Sodium 136 mmol/L (137-145)
--- NOTE | 2023-06-02 10:46 | CA ---
Transthoracic Echo Report Name: Jerry Leonard Age: 63 Gender: M : 1960 Exam Date: 06/02/2023 08:03 Exam Location: [facility] Ht (in): 68 Wt (lb): 211 Ordering Physician: Martha Oliver DO Attending/Referring Phys: [id number], Melody Flaker Operator Gisele Khoury RDCS Procedure CPT: Indications: new murmur Cardiac Hx: Technical Quality: Good Contrast 1: Total Dose (mL): Contrast 2: Total Dose (mL): MEASUREMENTS (Male / Female) Normal Values 2D ECHO LV Diastolic Diameter PLAX 5.3 cm 4.2 - 5.9 / 3.9 - 5.3 cm LV Systolic Diameter PLAX 4.0 cm IVS Diastolic Thickness 1.5 cm 0.6 - 1.0 / 0.6 - 0.9 cm LVPW Diastolic Thickness 1.5 cm 0.6 - 1.0 / 0.6 - 0.9 cm LV Relative Wall Thickness 0.6 RV Internal Dim ED PLAX 3.3 cm LVOT Diameter 2.1 cm LA Systolic Diameter LX 4.3 cm 3.0 - 4.0 / 2.7 - 3.8 cm LV Diastolic Volume MOD BP 81.1 cm??? 67 - 155 / 56 - 104 cm??? LV Systolic Volume MOD BP 35.7 cm??? 22 - 58 / 19 - 49 cm??? LV Ejection Fraction MOD BP 56.0 % >= 55 % LV Cardiac Index MOD BP 1294.9 cm???/min???m??? LV Diastolic Volume MOD 4C 102.8 cm??? LV Systolic Volume MOD 4C 34.3 cm??? LV Ejection Fraction MOD 4C 66.6 % LV Cardiac Index MOD 4C 1952.9 cm???/min???m??? LV Diastolic Length 4C 7.3 cm LV Systolic Length 4C 6.0 cm LV Diastolic Volume MOD 2C 57.2 cm??? LV Systolic Volume MOD 2C 33.8 cm??? LV Ejection Fraction MOD 2C 40.9 % LV Cardiac Index MOD 2C 667.8 cm???/min???m??? LV Diastolic Length 2C 8.2 cm LV Systolic Length 2C 6.7 cm LA Volume 81.1 cm??? 18 - 58 / 22 - 52 cm??? M-MODE Aortic Root Diameter MM 3.6 cm MV E Point Septal Separation 0.3 cm AV Cusp Separation MM 1.0 cm DOPPLER AV Peak Velocity 339.9 cm/s AV Peak Gradient 46.2 mmHg AV Mean Velocity 239.9 cm/s AV Mean Gradient 25.9 mmHg AV Velocity Time Integral 68.5 cm AI Peak Velocity 349.7 cm/s AI Peak Gradient 48.9 mmHg AI Pressure Half Time 630.7 ms MV Area PHT 3.1 cm??? Mitral E Point Velocity 89.6 cm/s Mitral A Point Velocity 67.2 cm/s Mitral E to A Ratio 1.3 MV Deceleration Time 247.3 ms MV E' Velocity 6.7 cm/s Mitral E to MV E' Ratio 13.5 FINDINGS Left Ventricle Left ventricular ejection fraction is estimated at 55-60 %. Left ventricular cavity size normal. Moderately increased septal wall thickness. Right Ventricle Mild right ventricular dilatation. Unable to estimate the right ventricular systolic pressure. Right Atrium Normal right atrial size. Left Atrium Mildly increased left atrial diameter. Severely increased left atrial volume. Mildly increased left atrial area. Mitral Valve Structurally normal mitral valve. Trace mitral regurgitation. Aortic Valve Moderate aortic valve sclerosis. Moderate aortic stenosis with a peak gradient of 46 mmHg and a mean gradient of 26 mmHg. Mild aortic regurgitation. Tricuspid Valve Structurally normal tricuspid valve. No tricuspid regurgitation. Pulmonic Valve Structurally normal pulmonic valve. No pulmonic regurgitation. Pericardium No pericardial effusion. Aorta Normal size aortic root and proximal ascending aorta. CONCLUSIONS Normal biventricular dimension and systolic function Aortic sclerosis with moderate aortic stenosis and mild aortic insufficiency Previewed by: Dr. Zaheer Amador MD (Electronically Signed) Final Date: 02 June 2023 10:45
[2023-06-02] MEDS: ENOXAPARIN 100 MG/ML SYRINGE SQ SCH ×2 (10:50→20:37)
--- NOTE | 2023-06-02 11:07 | P.PN ---
Subjective Progress Note Date: 06/02/23 Principal diagnosis: Empyema. 63-year-old male who was sent over to the emergency room, by my partner, for empyema, as a complication of a previous episode of pneumonia, and parapneumonic effusion. Apparently, the patient got sick back in March. He apparently saw his primary care doctor was treated for pneumonia. Subsequent to that, because he wasn't really getting any better, he had a CAT scan, followed by another CAT scan, which revealed a complex fluid collection in the right chest. The patient was seen by my partner today, and sent to the hospital for evaluation by interventional radiology for pigtail catheter placement, and instillation of TPA and alpha dornase. According to patient's , the patient hasn't been feeling well since mid March. He's been losing weight, poor color, and just not feeling well. He has had fever, cough, and some phlegm production. In addition, he's had some pain in the right chest and back area. The patient has a history of d iabetes, hyperlipidemia, and hypertension. He is a lifelong nonsmoker. White count is 17,000, hemoglobin 11.1, hematocrit 34.6, and a platelet count of 405,000. Sodium 136, potassium 4.5, chlorides 107, CO2 20, anion gap 9, BUN 33, and creatinine 0.96. Glucose 49. Albumin 3.3. Chest x-ray shows an air-fluid level within the right chest, and either a large cavity and/or abscess. The patient's currently on room air. He was given a dose of Rocephin and vancomycin. The patient is seen today 05/31/2023 in follow-up, in the emergency department. He is currently sitting up on a stretcher. Awake and alert in no acute distress. Somewhat restless. He is maintaining good O2 saturations in the mid 90s on room air. He's afebrile. Hemodynamically stable. Computed tomography scan of the chest revealed a collection of the right lung base with air fluid level, concerning for intrapulmonary abscess versus empyema. White count 14.2. Hemoglobin 10.4. Platelets 382. Sodium 137. Potassium 4.7. Bicarb 20. BUN 16. Creatinine 0.55. Glucose 117. He is continued on cefepime and vancomycin. Plan is for pigtail catheter placement today by interventional radiology. Progress note dated 06/01/2023. The patient is seen today in room 356. He is currently on room air. Is not receiving any IV fluids. He is receiving both vancomycin and cefepime for his suspected empyema. A pigtail catheter was placed on the right side, they interventional radiology yesterday. The patient had about 85 mL of output. White count 12.1, hemoglobin 10.2, hematocrit 31.9, within normal platelet cou nt. Sodium 135, potassium 4.9, chlorides 105, CO2 24, BUN 12, and creatinine 0.54. Cultures are currently pending. Chest x-ray shows a right-sided pigtail catheter, with improvement of the abscess in the right lower lobe. Progress note dated 06/02/2023. 63-year-old male seen today in room 356. The patient had a pigtail catheter placed for an empyema, and the right lung. Apparently last night, the patient developed atrial fibrillation. Currently, he's on Cardizem 5 mg an hour. He's on room air. No IV fluids. He is getting vancomycin and cefepime currently, for his empyema. White count 10.9, hemoglobin 11.2, hematocrit 34.4, and platelet count is 353,000. Sodium 136, potassium 4.5, chlorides 107, CO2 21, BUN 10, creatinine 0.57. Glucose is 346. Objective - Vital Signs Vital signs: Vital Signs Temp 98.2 F 06/02/23 03:02 Pulse 95 06/02/23 03:02 Resp 20 06/02/23 03:02 BP 112/59 06/02/23 03:02 Pulse Ox 93 L 06/02/23 03:02 FiO2 Intake & Output 06/01/23 06/02/23 06/02/23 18:59 06:59 18:59 Intake Total 443 120 Output Total 1460 2420 Balance -1017 -2420 120 Weight 96.5 kg Intake: Oral 443 120 Output: Chest Tube Drainage 10 20 Pleural Catheter Right 10 20 Posterior Chest Urine 1450 2400 - Exam No acute distress, oriented 3. Currently on room air. Room air saturation 93%. HEENT examination is grossly unremarkable. Mucous membranes are moist. No oral lesions. Neck supple. Full range of motion. No adenopathy thyromegaly or neck vein distention. Cardiovascular examination reveals regular rhythm rate. S1-S2 normal. No S3 or S4. No discernible murmur noted. Heart rate 95 bpm. Lungs reveal diminished breath sounds throughout the right midlung and right base. Scattered rhonchi noted. No wheezes or crackles. Abdomen soft bowel sounds are heard. No masses or tenderness. Extremities are intact. No cyanosis clubbing or edema. Skin is without rash or lesion. Neurologic examination is brief but nonfocal. - Labs CBC & Chem 7: 06/02/23 08:34 06/02/23 08:34 Labs: Abnormal Lab Results - Last 24 Hours (Table) 06/01/23 06/01/23 06/01/23 Range/Units 08:30 11:44 16:40 WBC (3.8-10.6) k/uL RBC (4.30-5.90) m/uL Hgb (13.0-17.5) gm/dL Hct (39.0-53.0) % Sodium (137-145) mmol/L Carbon Dioxide (22-30) mmol/L Creatinine (0.66-1.25) mg/dL Glucose (74-99) mg/dL POC Glucose (mg/dL) 200 H 137 H (70-110) mg/dL Hemoglobin A1c 7.9 H (<=6.0) % 06/01/23 06/02/23 06/02/23 Range/Units 20:26 00:10 06:16 WBC (3.8-10.6) k/uL RBC (4.30-5.90) m/uL Hgb (13.0-17.5) gm/dL Hct (39.0-53.0) % Sodium (137-145) mmol/L Carbon Dioxide (22-30) mmol/L Creatinine 0.43 L (0.66-1.25) mg/dL Glucose (74-99) mg/dL POC Glucose (mg/dL) 197 H 146 H (70-110) mg/dL Hemoglobin A1c (<=6.0) % 06/02/23 06/02/23 Range/Units 08:34 08:34 WBC 10.9 H (3.8-10.6) k/uL RBC 3.67 L (4.30-5.90) m/uL Hgb 11.2 L (13.0-17.5) gm/dL Hct 34.4 L (39.0-53.0) % Sodium 136 L (137-145) mmol/L Carbon Dioxide 21 L (22-30) mmol/L Creatinine 0.57 L (0.66-1.25) mg/dL Glucose 346 H (74-99) mg/dL POC Glucose (mg/dL) (70-110) mg/dL Hemoglobin A1c (<=6.0) % Microbiology - Last 24 Hours (Table) 05/30/23 10:50 Blood Culture - Preliminary Blood 05/30/23 11:23 Blood Culture - Preliminary Blood 05/31/23 09:30 Gram Stain - Preliminary Pleural Fluid Assessment and Plan Assessment: Chronic respiratory illness characterized by weight loss, cough, phlegm production, fatigue, and chest pain, and an x-ray that suggested a fluid-filled abscess in the right chest. S/P pigtail catheter insertion, right posterior chest, 05/31/2023. Recent episode of pneumonia, with an illness that began about 6 weeks ago. History of hypertension. History of diabetes. History of hyperlipidemia. Lifelong nonsmoker. Plan: Plan dated 05/30/2023. The patient actually looks very stable. He's on room air. He has received both vancomycin and Rocephin here in the emergency department. Interventional radiology will be consulted for possible placement of a pigtail catheter. After that, depending on output, the instillation of TPA, and, alpha dornase, might be beneficial, in improving drainage of the lung abscess. Additional recommendations and suggestions are forthcoming. The patient was seen in the emergency department. The plan is discussed with the patient and the patient's . Plan dated 06/01/2023. The patient continues on vancomycin and cefepime. A pigtail catheter was placed yesterday, May 31, by interventional radiology. About 85 mL of output was recorded. The patient's on room air. He's not receiving any IV drugs. Continue to follow and make recommendations along the way. Microbiology thus far negative. Prognosis is guarded. Plan dated 06/02/2023. The patient continues on vancomycin and cefepime. Culture data is as far negative are pending. Labs, x-rays, and medications are reviewed. We will continue to follow and make recommendations along the way. The patient did develop atrial fibrillation last night, and was placed on Cardizem, at 5 mg an hour. No IV fluids. The patient's on room air. Labs, x-rays, and medications are all reviewed. Time with Patient: Less than 30
[2023-06-02 11:30] LABS: Glucose,Whole Blood 231 mg/dL (70-110)
--- NOTE | 2023-06-02 12:24 | P.PN ---
Subjective Progress Note Date: 06/02/23 Patient is a 63-year-old male with diabetes, hypertension, and dyslipidemia who was directed to the ER by Dr. Helder newell due to concerns for empyema and right sided pleural effusion. Patient was initially diagnosed with pneumonia in March and was prescribed antibiotics he continued to have generalized fatigue and has lost approximately 30 pounds in the last 1-2 months. Primary care physician repeated CT of the chest which demonstrated loculated pleural effusion with air fluid levels and concern for empyema and the patient was subsequently referred to pulmonology. On his first appointment with pulmonology on 05/30 he was referred to the emergency department. On arrival to the ER he was hypotensive with a blood pressure of 78/50. Laboratory analysis was remarkable for white bl ood cell count of 17, hemoglobin 11.1, sodium 136, CO2 20, BUN 33, glucose of 49. Chest x-ray showed right-sided pleural effusion with air fluid levels in the mid chest, left atrial enlargement. The patient was subsequently admitted and pulmonary was consulted. Patient was started on cefepime, blood cultures were ordered, and he was started on fluids at 130 mL/h. he was seen by pulmonary who recommended pigtail catheter and continued IV antibiotics. He developed tachycardia overnight on 06/01 and was subsequently found to have atrial fibrillation with rapid ventricular response. He was started on full dose Lovenox and was given a trial of IV metoprolol and then necessitated a Cardizem drip. Cardiology was consulted. He was started on oral metoprolol and Cardizem was discontinued. Echo showed a preserved EF with moderate aortic stenosis Patient seen and examined at bedside. We had a long discussion about what Bruce jordan is, why he went into it, the importance of anticoagulation. He denies any unusual chest pain or shortness of breath at this time. No other complaints currently. Vital signs reviewed General: nontoxic, no distress, appears at stated age Cardiovascular: S1S2 reg, no murmur, positive posterior tibial pulse bilateral, Lungs: Diminished breath sounds right base bilateral, no rhonchi, no rales , no accessory muscle use, pig tail cath in place Abdominal: soft, nontender to palpation, no guarding, no appreciable organomegaly Ext: no gross muscle atrophy, no edema b/l lower extremities, no contractures Neuro: CN II-XI grossly intact, no focal neuro deficits Psych: Alert, oriented, appropriate affect Assessment/Plan: Empyema versus intrapulmonary abscess s/p pig tail cath 05/31/23 Sepsis Hypotension, resolved -Cefepime 2 g every 8 hours IV piggyback daily #4, Vanco 1500 mg IV piggyback day #4 -Monitor creatinine and vancomycin troughs for toxicity - Pulmonary note reviewed: vanco and cefepime, awake cultures - continue to hold lisinopril and HCTZ, follow BP - await cultures P. A fib with RVR, new onset, now back in sinus rhythm. Cardio consult reviewed: lovenox BID for now, star oral lopressor, wean cardizem Diabetes mellitus type II -Hold Actos, glipizide, metformin, and Trulicity -SSI, add novolog 2 units with meals -Levemir 10 units at night - follow BS - A1C 7.9 Chronic: HTN HLD Imaging: Echo- EF 55-60%, moderate aortic stenosis Data Review: Vitals reviewed and temp 98.2, pulse 95, respiratory rate 20, and BP 112/59, O2 sat 93% on RA Labs reviewed white blood count 10.9, HEMOGLOBIN 11.2, SODIUM 136, CARBON DIOXIDE 21, BLOOD SUGAR 231 DVT prophylaxis: Lovenox Discussed with: Patient Anticipated discharge date: Pending Clinical Course Anticipated discharge place: Pending Clinical Course This dictation was prepared using [employer] voice recognition software. Though every attempt is made to correct errors during dictation some may still exist. Objective - Vital Signs Vital signs: Vital Signs Temp 98.2 F 06/02/23 03:02 Pulse 95 06/02/23 03:02 Resp 20 06/02/23 03:02 BP 112/59 06/02/23 03:02 Pulse Ox 93 L 06/02/23 03:02 FiO2 Intake & Output 06/01/23 06/02/23 06/02/23 18:59 06:59 18:59 Intake Total 443 120 Output Total 1460 2420 Balance -1017 -2420 120 Weight 96.5 kg Intake: Oral 443 120 Output: Chest Tube Drainage 10 20 Pleural Catheter Right 10 20 Posterior Chest Urine 1450 2400 - Labs CBC & Chem 7: 06/02/23 08:34 06/02/23 08:34 Labs: Abnormal Lab Results - Last 24 Hours (Table) 06/01/23 06/01/23 06/01/23 Range/Units 08:30 16:40 20:26 WBC (3.8-10.6) k/uL RBC (4.30-5.90) m/uL Hgb (13.0-17.5) gm/dL Hct (39.0-53.0) % Sodium (137-145) mmol/L Carbon Dioxide (22-30) mmol/L Creatinine (0.66-1.25) mg/dL Glucose (74-99) mg/dL POC Glucose (mg/dL) 137 H 197 H (70-110) mg/dL Hemoglobin A1c 7.9 H (<=6.0) % 06/02/23 06/02/23 06/02/23 Range/Units 00:10 06:16 08:34 WBC 10.9 H (3.8-10.6) k/uL RBC 3.67 L (4.30-5.90) m/uL Hgb 11.2 L (13.0-17.5) gm/dL Hct 34.4 L (39.0-53.0) % Sodium (137-145) mmol/L Carbon Dioxide (22-30) mmol/L Creatinine 0.43 L (0.66-1.25) mg/dL Glucose (74-99) mg/dL POC Glucose (mg/dL) 146 H (70-110) mg/dL Hemoglobin A1c (<=6.0) % 06/02/23 06/02/23 Range/Units 08:34 11:29 WBC (3.8-10.6) k/uL RBC (4.30-5.90) m/uL Hgb (13.0-17.5) gm/dL Hct (39.0-53.0) % Sodium 136 L (137-145) mmol/L Carbon Dioxide 21 L (22-30) mmol/L Creatinine 0.57 L (0.66-1.25) mg/dL Glucose 346 H (74-99) mg/dL POC Glucose (mg/dL) 231 H (70-110) mg/dL Hemoglobin A1c (<=6.0) % Microbiology - Last 24 Hours (Table) 05/30/23 10:50 Blood Culture - Preliminary Blood 05/30/23 11:23 Blood Culture - Preliminary Blood 05/31/23 09:30 Gram Stain - Preliminary Pleural Fluid
[2023-06-02 16:42] LABS: Glucose,Whole Blood 116 mg/dL (70-110)
[2023-06-02] MEDS: MELATONIN 5 MG TABLET PO SCH (20:36)
[2023-06-02] MEDS: ATORVASTATIN 20 MG TAB PO SCH (20:36)
[2023-06-02] MEDS: INSULIN DETEMIR (LEVEMIR) 100 UNIT/ML SYR SQ SCH (20:36)
[2023-06-02 21:07] LABS: Glucose,Whole Blood 139 mg/dL (70-110)
[2023-06-03] MEDS: DILTIAZEM 125 MG in SODIUM CHLORIDE 0.9% 100 ML IV SCH (00:08)
[2023-06-03] MEDS: VANCOMYCIN 1,500 MG in SODIUM CHLORIDE 0.9% 500 ML 500 ML IVPB SCH ×3 (00:47→16:47)
[2023-06-03] MEDS: CEFEPIME 2 GM in SODIUM CHLORIDE 0.9% 100 ML IVPB SCH ×3 (04:24→20:23)
[2023-06-03 06:16] LABS: Glucose,Whole Blood 132 mg/dL (70-110)
[2023-06-03] MEDS: INSULIN ASPART (NovoLOG) 100 UNIT/ML VIAL SQ SCH ×6 (06:42→17:41)
--- NOTE | 2023-06-03 06:42 | P.PN ---
Subjective Progress Note Date: 06/03/23 Principal diagnosis: Paroxysmal atrial fibrillation The patient is a 63-year-old gentleman who is not known to our service from before with a past medical history significant for diabetes and hypertension and dyslipidemia presented diagnosed pneumonia was sent directly to the hospital from his rougher for cement for further evaluation of infection in the pleural space with fluid collection and possible abscess. The patient was struggling with a pneumonia a few months ago. Because he continues to be symptomatic interim of cough productive of sputum as well as weight loss as well as multiple other symptoms he underwent a computed tomography scan and that showed fluid collecti on in the right pleural space consistent of possible abscess and infection. The patient was subsequently admitted and started on antibiotic. We consulted to see the patient because of atrial fibrillation with RVR which is new to him. The patient never been diagnosed was atrial fibrillation before. The patient was asymptomatic in terms of heart racing or fluttering or dizziness or lightheadedness or any symptoms of chest pain or chest discomfort. He continues to be in atrial fibrillation with overall controlled heart rate on the current dose of Cardizem IV. He was on Lovenox at a daily dose which I increased it to twice a day at this point. We'll consider starting the patient on oral a nticoagulation once we know that he doesn't need any further surgical procedure. An echocardiogram is in process to be done The examination is remarkable for stable vital signs with irregular rhythm and diminished breathing sounds over the right side with evidence of pigtail catheter in the right chest. No lower extremity edema noted June [id number] The patient was seen and evaluated this morning. He was converted to normal sinus mechanism has been maintaining normal sinus mechanism as well. He is on metoprolol orally. He is on Lovenox twice a day. I will keep him on the current dose of Lovenox which is a therapeutic dose to be noted that the patient does not require any surgical intervention and at that point we'll consider switching the patient into oral anticoagulation. Beside that the echo revealed normal biventricular dimension and systolic function was evidence of moderate aortic stenosis and mild aortic insufficiency. He is asymptomatic at this point. He continues on antibiotic as well. The examination is remarkable for regular rhythm with a systolic murmur at the right upper sternal border and diminished breathing sounds mostly on the right than the left. Assessment Fluid collection in the right chest was possible abscess Status post pigtail catheter in the right pleural space Atrial fibrillation with controlled heart rate. This is new diagnosed as the pa tient. The patient currently is in normal sinus mechanism Valvular heart disease with aortic stenosis and aortic insufficiency Preserved LV systolic function Multiple comorbid conditions including diabetes and hypertension and dyslipidemia Plan Continue the current medical regimen as above Consider starting the patient on oral AV lakisha ysabel agents Continue Lovenox twice a day at this point Objective - Vital Signs Vital signs: Vital Signs Temp 98.2 F 06/03/23 04:00 Pulse 74 06/03/23 04:00 Resp 14 06/03/23 04:00 BP 135/74 06/03/23 04:00 Pulse Ox 94 L 06/03/23 04:00 FiO2 Intake & Output 06/02/23 06/02/23 06/03/23 06:59 18:59 06:59 Intake Total 2649 Output Total 2420 20 Balance -2420 2629 Weight 96.5 kg 99.5 kg Intake: Intake, IV Titration 1115 Amount Cefepime 2 gm In Sodium 100 Chloride 0.9% 100 ml @ 25 mls/hr IVPB Q8H [facility] Rx#: [id number] Diltiazem 125 mg In 15 Sodium Chloride 0.9% 100 ml @ 5 MG/HR 5 mls/hr IV .Q24H [facility] Rx#:[id number] Vancomycin 1,500 mg In 500 Sodium Chloride 0.9% 500 ml 500 ml @ 167 mls/hr IVPB Q8H [facility] Rx#: [id number] Vancomycin 1,500 mg In 500 Sodium Chloride 0.9% 500 ml 500 ml @ 167 mls/hr IVPB Q8H [facility] Rx#: [id number] Oral 1534 Output: Chest Tube Drainage 20 20 Pleural Catheter Right 20 20 Posterior Chest Urine 2400 Other: # Voids 1 1 - Labs CBC & Chem 7: 06/02/23 08:34 06/02/23 08:34 Labs: Abnormal Lab Results - Last 24 Hours (Table) 06/02/23 06/02/23 06/02/23 Range/Units 08:34 08:34 11:29 WBC 10.9 H (3.8-10.6) k/uL RBC 3.67 L (4.30-5.90) m/uL Hgb 11.2 L (13.0-17.5) gm/dL Hct 34.4 L (39.0-53.0) % Sodium 136 L (137-145) mmol/L Carbon Dioxide 21 L (22-30) mmol/L Creatinine 0.57 L (0.66-1.25) mg/dL Glucose 346 H (74-99) mg/dL POC Glucose (mg/dL) 231 H (70-110) mg/dL 06/02/23 06/02/23 06/03/23 Range/Units 16:40 21:03 06:15 WBC (3.8-10.6) k/uL RBC (4.30-5.90) m/uL Hgb (13.0-17.5) gm/dL Hct (39.0-53.0) % Sodium (137-145) mmol/L Carbon Dioxide (22-30) mmol/L Creatinine (0.66-1.25) mg/dL Glucose (74-99) mg/dL POC Glucose (mg/dL) 116 H 139 H 132 H (70-110) mg/dL Microbiology - Last 24 Hours (Table) 05/30/23 10:50 Blood Culture - Preliminary Blood 05/30/23 11:23 Blood Culture - Preliminary Blood
[2023-06-03] MEDS: METOPROLOL TARTRATE 25 MG TAB PO SCH ×2 (09:23→20:23)
[2023-06-03] MEDS: ENOXAPARIN 100 MG/ML SYRINGE SQ SCH ×2 (09:23→20:22)
[2023-06-03] MEDS: FOLIC ACID 1 MG TAB PO SCH (09:23)
[2023-06-03] MEDS: THIAMINE 100 MG TAB PO SCH (09:23)
--- NOTE | 2023-06-03 10:08 | P.PN ---
Subjective Progress Note Date: 06/03/23 Principal diagnosis: Empyema. 63-year-old male who was sent over to the emergency room, by my partner, for empyema, as a complication of a previous episode of pneumonia, and parapneumonic effusion. Apparently, the patient got sick back in March. He apparently saw his primary care doctor was treated for pneumonia. Subsequent to that, because he wasn't really getting any better, he had a CAT scan, followed by another CAT scan, which revealed a complex fluid collection in the right chest. The patient was seen by my partner today, and sent to the hospital for evaluation by interventional radiology for pigtail catheter placement, and instillation of TPA and alpha dornase. According to patient's , the patient hasn't been feeling well since mid March. He's been losing weight, poor color, and just not feeling well. He has had fever, cough, and some phlegm production. In addition, he's had some pain in the right chest and back area. The patient has a history of d iabetes, hyperlipidemia, and hypertension. He is a lifelong nonsmoker. White count is 17,000, hemoglobin 11.1, hematocrit 34.6, and a platelet count of 405,000. Sodium 136, potassium 4.5, chlorides 107, CO2 20, anion gap 9, BUN 33, and creatinine 0.96. Glucose 49. Albumin 3.3. Chest x-ray shows an air-fluid level within the right chest, and either a large cavity and/or abscess. The patient's currently on room air. He was given a dose of Rocephin and vancomycin. The patient is seen today 05/31/2023 in follow-up, in the emergency department. He is currently sitting up on a stretcher. Awake and alert in no acute distress. Somewhat restless. He is maintaining good O2 saturations in the mid 90s on room air. He's afebrile. Hemodynamically stable. Computed tomography scan of the chest revealed a collection of the right lung base with air fluid level, concerning for intrapulmonary abscess versus empyema. White count 14.2. Hemoglobin 10.4. Platelets 382. Sodium 137. Potassium 4.7. Bicarb 20. BUN 16. Creatinine 0.55. Glucose 117. He is continued on cefepime and vancomycin. Plan is for pigtail catheter placement today by interventional radiology. Progress note dated 06/01/2023. The patient is seen today in room 356. He is currently on room air. Is not receiving any IV fluids. He is receiving both vancomycin and cefepime for his suspected empyema. A pigtail catheter was placed on the right side, they interventional radiology yesterday. The patient had about 85 mL of output. White count 12.1, hemoglobin 10.2, hematocrit 31.9, within normal platelet cou nt. Sodium 135, potassium 4.9, chlorides 105, CO2 24, BUN 12, and creatinine 0.54. Cultures are currently pending. Chest x-ray shows a right-sided pigtail catheter, with improvement of the abscess in the right lower lobe. Progress note dated 06/02/2023. 63-year-old male seen today in room 356. The patient had a pigtail catheter placed for an empyema, and the right lung. Apparently last night, the patient developed atrial fibrillation. Currently, he's on Cardizem 5 mg an hour. He's on room air. No IV fluids. He is getting vancomycin and cefepime currently, for his empyema. White count 10.9, hemoglobin 11.2, hematocrit 34.4, and platelet count is 353,000. Sodium 136, potassium 4.5, chlorides 107, CO2 21, BUN 10, creatinine 0.57. Glucose is 346. Progress note dated 06/03/2023. 63-year-old male seen today in room 356. The patient is doing reasonably well. He is on room air and getting saline at 10 mL an hour. The Cardizem drip, that was on yesterday, for atrial fibrillation, has been turned off. No new lab data today other than a glucose of 132. The patient remains on vancomycin and cefepime. Culture data is negative are pending. Objective - Vital Signs Vital signs: Vital Signs Temp 98.2 F 06/03/23 04:00 Pulse 74 06/03/23 04:00 Resp 14 06/03/23 04:00 BP 135/74 06/03/23 04:00 Pulse Ox 94 L 06/03/23 04:00 FiO2 Intake & Output 06/02/23 06/03/23 06/03/23 18:59 06:59 18:59 Intake Total 2649 Output Total 20 Balance 2629 Weight 99.5 kg Intake: Intake, IV Titration 1115 Amount Cefepime 2 gm In Sodium 100 Chloride 0.9% 100 ml @ 25 mls/hr IVPB Q8H [facility] Rx#: [id number] Diltiazem 125 mg In 15 Sodium Chloride 0.9% 100 ml @ 5 MG/HR 5 mls/hr IV .Q24H [facility] Rx#:[id number] Vancomycin 1,500 mg In 500 Sodium Chloride 0.9% 500 ml 500 ml @ 167 mls/hr IVPB Q8H [facility] Rx#: [id number] Vancomycin 1,500 mg In 500 Sodium Chloride 0.9% 500 ml 500 ml @ 167 mls/hr IVPB Q8H [facility] Rx#: [id number] Oral 1534 Output: Chest Tube Drainage 20 Pleural Catheter Right 20 Posterior Chest Other: # Voids 1 1 - Exam No acute distress, oriented 3. Currently on room air. Room air saturation 94%. HEENT examination is grossly unremarkable. Mucous membranes are moist. No oral lesions. Neck supple. Full range of motion. No adenopathy thyromegaly or neck vein distention. Cardiovascular examination reveals regular rhythm rate. S1-S2 normal. No S3 or S4. No discernible murmur noted. Heart rate 74 bpm. Lungs reveal diminished breath sounds throughout the right midlung and right base. Scattered rhonchi noted. No wheezes or crackles. Abdomen soft bowel sounds are heard. No masses or tenderness. Extremities are intact. No cyanosis clubbing or edema. Skin is without rash or lesion. Neurologic examination is brief but nonfocal. - Labs CBC & Chem 7: 06/02/23 08:34 06/02/23 08:34 Labs: Abnormal Lab Results - Last 24 Hours (Table) 06/02/23 06/02/23 06/02/23 Range/Units 11:29 16:40 21:03 POC Glucose (mg/dL) 231 H 116 H 139 H (70-110) mg/dL 06/03/23 Range/Units 06:15 POC Glucose (mg/dL) 132 H (70-110) mg/dL Microbiology - Last 24 Hours (Table) 05/31/23 09:30 Gram Stain - Preliminary Pleural Fluid Body Fluid Culture - Preliminary 05/30/23 10:50 Blood Culture - Preliminary Blood 05/30/23 11:23 Blood Culture - Preliminary Blood Assessment and Plan Assessment: Chronic respiratory illness characterized by weight loss, cough, phlegm production, fatigue, and chest pain, and an x-ray that suggested a fluid-filled abscess in the right chest. Empyema/lung abscess, right lower lobe. S/P pigtail catheter insertion, right posterior chest, 05/31/2023. Recent episode of pneumonia, with an illness that began about 6 weeks ago. History of hypertension. History of diabetes. History of hyperlipidemia. Lifelong nonsmoker. Plan: Plan dated 05/30/2023. The patient actually looks very stable. He's on room air. He has received both vancomycin and Rocephin here in the emergency department. Interventional radiology will be consulted for possible placement of a pigtail catheter. After that, depending on output, the instillation of TPA, and, alpha dornase, might be beneficial, in improving drainage of the lung abscess. Additional recommendations and suggestions are forthcoming. The patient was seen in the emergency department. The plan is discussed with the patient and the patient's . Plan dated 06/01/2023. The patient continues on vancomycin and cefepime. A pigtail catheter was placed yesterday, May 31, by interventional radiology. About 85 mL of output was recorded. The patient's on room air. He's not receiving any IV drugs. Continue to follow and make recommendations along the way. Microbiology thus far negative. Prognosis is guarded. Plan dated 06/02/2023. The patient continues on vancomycin and cefepime. Culture data is as far negative are pending. Labs, x-rays, and medications are reviewed. We will continue to follow and make recommendations along the way. The patient did develop atrial fibrillation last night, and was placed on Cardizem, at 5 mg an hour. No IV fluids. The patient's on room air. Labs, x-rays, and medications are all reviewed. Plan dated 06/03/2023. The patient remains on vancomycin and cefepime. The patient's not requiring any supplemental oxygen. The patient is getting saline at 10 mL an hour. Atrial fibrillation is not an issue today, and the Cardizem drip has been turned off. Labs, x-rays, and medications are reviewed. We will continue to follow the patient and make recommendations along the way. Prognosis is certainly guarded. Time with Patient: Less than 30
[2023-06-03 11:29] LABS: Glucose,Whole Blood 155 mg/dL (70-110)
[2023-06-03 13:53] LABS: HCT 32.2 % (39.0-53.0); HGB 10.1 gm/dL (13.0-17.5); Hypochromasia Slight; MCH 29.6 pg (25.0-35.0); MCHC 31.4 g/dL (31.0-37.0); MCV 94.2 fL (80.0-100.0); Mean Platelet Volume 8.2; Platelet Count 360 k/uL (150-450); RBC 3.42 m/uL (4.30-5.90); RDW 14.7 % (11.5-15.5); WBC 11.6 k/uL (3.8-10.6)
[2023-06-03 14:18] LABS: African American GFR (CKD) >90 (>60 ml/min/1.73 sqM); Anion Gap 8 mmol/L; Blood Urea Nitrogen 14 mg/dL (9-20); Calcium 8.7 mg/dL (8.4-10.2); Carbon Dioxide 21 mmol/L (22-30); Chloride 108 mmol/L (98-107); Glucose 225 mg/dL (74-99); Non-African American GFR(CKD) >90 (>60 ml/min/1.73 sqM); Potassium 4.6 mmol/L (3.5-5.1); Sodium 137 mmol/L (137-145)
--- NOTE | 2023-06-03 16:11 | P.PN ---
Subjective Progress Note Date: 06/03/23 Patient is a 63-year-old male with diabetes, hypertension, and dyslipidemia who was directed to the ER by Dr. Helder newell due to concerns for empyema and right sided pleural effusion. Patient was initially diagnosed with pneumonia in March and was prescribed antibiotics he continued to have generalized fatigue and has lost approximately 30 pounds in the last 1-2 months. Primary care physician repeated CT of the chest which demonstrated loculated pleural effusion with air fluid levels and concern for empyema and the patient was subsequently referred to pulmonology. On his first appointment with pulmonology on 05/30 he was referred to the emergency department. On arrival to the ER he was hypotensive with a blood pressure of 78/50. Laboratory analysis was remarkable for white bl ood cell count of 17, hemoglobin 11.1, sodium 136, CO2 20, BUN 33, glucose of 49. Chest x-ray showed right-sided pleural effusion with air fluid levels in the mid chest, left atrial enlargement. The patient was subsequently admitted and pulmonary was consulted. Patient was started on cefepime, blood cultures were ordered, and he was started on fluids at 130 mL/h. he was seen by pulmonary who recommended pigtail catheter and continued IV antibiotics. He developed tachycardia overnight on 06/01 and was subsequently found to have atrial fibrillation with rapid ventricular response. He was started on full dose Lovenox and was given a trial of IV metoprolol and then necessitated a Cardizem drip. Cardiology was consulted. He was started on oral metoprolol and Cardizem was discontinued. Echo showed a preserved EF with moderate aortic stenosis Patient seen and examined at bedside. He has no complaints today. He denies any shortness of breath, diarrhea, or chest pain. present at bedside and all questions answered. Vital signs reviewed General: nontoxic, no distress, appears at stated age Cardiovascular: S1S2 reg, no murmur, positive posterior tibial pulse bilateral, Lungs: Diminished breath sounds right base, no rhonchi, no rales , no accessory muscle use, pig tail cath in place 20 cc in chest tube Abdominal: soft, nontender to palpation, no guarding, no appreciable organomegaly Ext: no gross muscle atrophy, no edema b/l lower extremities, no contractures Neuro: CN II-XI grossly intact, no focal neuro deficits Psych: Alert, oriented, appropriate affect Assessment/Plan: Empyema versus intrapulmonary abscess s/p pig tail cath 05/31/23 Sepsis Hypotension, resolved -Cefepime 2 g every 8 hours IV piggyback daily #5, Vanco 1500 mg IV piggyback day #5 -Monitor creatinine and vancomycin troughs for toxicity - Pulm note reviewed continue with vanco and cefepime - Consult infectious disease - consider cardiovascular surgery consult for chest tube management - Pulmonary note reviewed: vanco and cefepime, awake cultures - continue to hold lisinopril and HCTZ, follow BP - await cultures P. A fib with RVR, new onset, now back in sinus rhythm. - cardio note reviewed and continue current meds - Lovenox 100 mg twice daily - Metoprolol 25 mg BID Diabetes mellitus type II -Hold Actos, glipizide, metformin, and Trulicity -SSI,novolog 2 units with meals -Levemir 10 units at night - follow BS - A1C 7.9 Chronic: HTN HLD Imaging: none new Data Review: Patient has been afebrile the last 24 hours. Am vitals show pulse 74, resp irations 14, blood pressure 135/74, O2 sat 94% on room air Labs reviewed and remarkable for hemoglobin 10.1, with blood cell count 11.6, chloride 108, carbon dioxide 21 AM fasting blood sugar 132 Pulmonary blood cultures with no growth to date. Preliminary body fluid culture/anaerboic no growth after 48 hours. DVT prophylaxis: Lovenox Discussed with: Patient Anticipated discharge date: Pending Clinical Course Anticipated discharge place: Pending Clinical Course This dictation was prepared using [employer] voice recognition software. Though every attempt is made to correct errors during dictation some may still exist. Objective - Vital Signs Vital signs: Vital Signs Temp 97.9 F 06/03/23 12:00 Pulse 62 06/03/23 13:26 Resp 14 06/03/23 13:26 BP 128/75 06/03/23 12:00 Pulse Ox 97 06/03/23 12:00 FiO2 Intake & Output 06/02/23 06/03/23 06/03/23 18:59 06:59 18:59 Intake Total 2649 240 Output Total 20 0 Balance 2629 240 Weight 99.5 kg Intake: Intake, IV Titration 1115 Amount Cefepime 2 gm In Sodium 100 Chloride 0.9% 100 ml @ 25 mls/hr IVPB Q8H [facility] Rx#: [id number] Diltiazem 125 mg In 15 Sodium Chloride 0.9% 100 ml @ 5 MG/HR 5 mls/hr IV .Q24H [facility] Rx#:[id number] Vancomycin 1,500 mg In 500 Sodium Chloride 0.9% 500 ml 500 ml @ 167 mls/hr IVPB Q8H [facility] Rx#: [id number] Vancomycin 1,500 mg In 500 Sodium Chloride 0.9% 500 ml 500 ml @ 167 mls/hr IVPB Q8H [facility] Rx#: [id number] Oral 1534 240 Output: Chest Tube Drainage 20 Pleural Catheter Right 20 Posterior Chest Gastric Drainage 0 Urine 0 Stool 0 Urine/Stool Mix 0 Emesis 0 Oral Regurgitation 0 Other 0 Other: # Voids 1 1 0 # Bowel Movements 0 - Labs CBC & Chem 7: 06/03/23 12:47 06/03/23 12:47 Labs: Abnormal Lab Results - Last 24 Hours (Table) 06/02/23 06/02/23 06/03/23 Range/Units 16:40 21:03 06:15 WBC (3.8-10.6) k/uL RBC (4.30-5.90) m/uL Hgb (13.0-17.5) gm/dL Hct (39.0-53.0) % Chloride (98-107) mmol/L Carbon Dioxide (22-30) mmol/L Glucose (74-99) mg/dL POC Glucose (mg/dL) 116 H 139 H 132 H (70-110) mg/dL 06/03/23 06/03/23 06/03/23 Range/Units 11:27 12:47 12:47 WBC 11.6 H (3.8-10.6) k/uL RBC 3.42 L (4.30-5.90) m/uL Hgb 10.1 L (13.0-17.5) gm/dL Hct 32.2 L (39.0-53.0) % Chloride 108 H (98-107) mmol/L Carbon Dioxide 21 L (22-30) mmol/L Glucose 225 H (74-99) mg/dL POC Glucose (mg/dL) 155 H (70-110) mg/dL Microbiology - Last 24 Hours (Table) 05/31/23 09:30 Anaerobic Culture - Preliminary Pleural Fluid 05/31/23 09:30 Gram Stain - Preliminary Pleural Fluid Body Fluid Culture - Preliminary 05/30/23 10:50 Blood Culture - Preliminary Blood 05/30/23 11:23 Blood Culture - Preliminary Blood
[2023-06-03 16:43] LABS: Glucose,Whole Blood 131 mg/dL (70-110)
[2023-06-03 19:53] LABS: Glucose,Whole Blood 129 mg/dL (70-110)
[2023-06-03] MEDS: MELATONIN 5 MG TABLET PO SCH (20:23)
[2023-06-03] MEDS: ATORVASTATIN 20 MG TAB PO SCH (20:23)
[2023-06-03] MEDS: INSULIN DETEMIR (LEVEMIR) 100 UNIT/ML SYR SQ SCH (20:51)
--- NOTE | 2023-06-03 23:03 | P.CONS ---
History of Present Illness - Reason for Consult Consult date: 06/03/23 - History of Present Illness Patient is a 63-year-old male with a past medical history significant for hypertension hyperlipidemia diabetes mellitus apparently was diagnosed with pleurisy/pneumonia in mid March and has been treated with a course of antibiotics, patient mention after taking his antibiotics his pain improved however he was not feeling well has been complaining of generalized fatigue chills and did have a weight loss patient apparently did have a CT of the chest in the outpatient setting concerning for empyema for the patient was evaluated in the outpatient setting by pulmonary and the patient was advised to go to the hospital patient on presentation to the hospital chest x-ray shows large ca vitary lesion with air-fluid level posterior right lung CT of the chest done on 06/01/2020 CT shows a collection right lung base with air-fluid level concerning for intrapulmonary abscess versus empyema patient did have a chest tube insertion by interventional radiology on 05/31/2023 pleural fluid cytology is currently pending pleural fluid culture so far pending patient is currently on cefepime and vancomycin infectious disease was consulted this evening regarding this empyema with a negative cultures so far, patient has been afebrile throughout his hospital stay and main symptom has been feeling weak fatigue and shortness of breath patient did have a cough mild to moderate intensity not brin ging up any sputum denies any nausea vomiting abdominal pain or diarrhea patient did have a white count of 17,000 on admission that is down to 11.6 creatinine 0.57 liver enzymes are normal pleural fluid did have 56,000 WBC Past Medical History Past Medical History: Diabetes Mellitus, Hyperlipidemia, Hypertension History of Any Multi-Drug Resistant Organisms: None Reported Past Surgical History: Joint Replacement, Orthopedic Surgery Additional Past Surgical History / Comment(s): BILATERAL KNEE REPLACEMENT Past Anesthesia/Blood Transfusion Reactions: No Reported Reaction Past Psychological History: No Psychological Hx Reported Smoking Status: Never smoker Past Alcohol Use History: Occasional Past Drug Use History: None Reported - Past Family History Father Family Medical History: Coronary Artery Disease (CAD) Mother Family Medical History: CVA/TIA Medications and Allergies Home Medications Medication Instructions Recorded Confirmed Type Atorvastatin [Lipitor] 20 mg PO HS 05/30/23 05/30/23 History Dulaglutide [Trulicity] 1.5 mg SQ WE 05/30/23 05/30/23 History Ibuprofen [Motrin Ib] 800 mg PO BID 05/30/23 05/30/23 History Lisinopril-Hctz 20-12.5 mg 1 tab PO BID 05/30/23 05/30/23 History [Zestoretic 20-12.5] Pioglitazone [Actos] 15 mg PO HS 05/30/23 05/30/23 History glipiZIDE [Glucotrol] 10 mg PO BID 05/30/23 05/30/23 History metFORMIN HCL [Metformin HCl] 1,000 mg PO BID 05/30/23 05/30/23 History Allergies Allergy/AdvReac Type Severity Reaction Status Date / Time No Known Allergies Allergy Verified 05/31/23 11:51 Physical Exam Vitals: Vital Signs Temp Pulse Resp BP Pulse Ox 06/03/23 16:00 98.0 F 76 16 154/71 96 06/03/23 13:26 62 14 06/03/23 12:00 97.9 F 62 14 128/75 97 06/03/23 08:00 62 14 06/03/23 04:00 98.2 F 74 14 135/74 94 L 06/03/23 02:00 79 16 06/03/23 00:00 98.0 F 79 15 137/62 96 06/02/23 20:00 97.8 F 97 15 135/60 97 Intake and Output 06/03/23 06/03/23 06/03/23 06:59 14:59 22:59 Intake Total 240 120 Output Total 0 Balance 240 120 Intake: Oral 240 120 Output: Gastric Drainage 0 Urine 0 Stool 0 Urine/Stool Mix 0 Emesis 0 Oral Regurgitation 0 Other 0 Other: # Voids 1 0 2 # Bowel Movements 0 Weight 99.5 kg Results CBC & Chem 7: 06/03/23 12:47 06/03/23 12:47 Labs: Abnormal Lab Results - Last 24 Hours (Table) 06/02/23 06/03/23 06/03/23 Range/Units 21:03 06:15 11:27 WBC (3.8-10.6) k/uL RBC (4.30-5.90) m/uL Hgb (13.0-17.5) gm/dL Hct (39.0-53.0) % Chloride (98-107) mmol/L Carbon Dioxide (22-30) mmol/L Glucose (74-99) mg/dL POC Glucose (mg/dL) 139 H 132 H 155 H (70-110) mg/dL 06/03/23 06/03/23 06/03/23 Range/Units 12:47 12:47 16:42 WBC 11.6 H (3.8-10.6) k/uL RBC 3.42 L (4.30-5.90) m/uL Hgb 10.1 L (13.0-17.5) gm/dL Hct 32.2 L (39.0-53.0) % Chloride 108 H (98-107) mmol/L Carbon Dioxide 21 L (22-30) mmol/L Glucose 225 H (74-99) mg/dL POC Glucose (mg/dL) 131 H (70-110) mg/dL Microbiology - Last 24 Hours (Table) 05/31/23 09:30 Anaerobic Culture - Preliminary Pleural Fluid 05/31/23 09:30 Gram Stain - Preliminary Pleural Fluid Body Fluid Culture - Preliminary 05/30/23 10:50 Blood Culture - Preliminary Blood 05/30/23 11:23 Blood Culture - Preliminary Blood Assessment and Plan Plan: 1patient with right-sided empyema in this patient has been diagnosed with a pneumonia in mid March and treated with a course of antibiotic patient not very clear about the name of that antibiotic patient is s/p chest tube placement on 05/31/2023 however the culture has not been finalized so far it is negative for any resistant gram-positive or gram-negative pathogen question of possible anaerobic pathogen. 2we will continue patient on vancomycin however stop cefepime and start the patient on Unasyn 3 g every 6 hours 3-check inflammatory markers 4-repeat chest x-ray We will follow on clinical condition and cultures to further adjust medication if needed Thank you for this consultation we will follow the patient along with you Dictation was produced using [employer] dictation software. please excuse any g rammatical, word or spelling errors. Time with Patient: Greater than 30
[2023-06-03] MEDS: AMPICILLIN-SULBACTAM 3 GM in SODIUM CHLORIDE 0.9% 100 ML IVPB SCH (23:59)
[2023-06-04] MEDS ORDERED: VANCOMYCIN TROUGH DUE 1 EACH MISC MISCELLANE ONE
[2023-06-04] MEDS: VANCOMYCIN 1,500 MG in SODIUM CHLORIDE 0.9% 500 ML 500 ML IVPB SCH ×2 (01:56→16:05)
[2023-06-04] MEDS: AMPICILLIN-SULBACTAM 3 GM in SODIUM CHLORIDE 0.9% 100 ML IVPB SCH ×4 (04:58→23:49)
[2023-06-04 05:55] LABS: Glucose,Whole Blood 142 mg/dL (70-110)
[2023-06-04] MEDS: INSULIN ASPART (NovoLOG) 100 UNIT/ML VIAL SQ SCH ×6 (06:02→18:10)
[2023-06-04 08:39] LABS: HCT 29.5 % (39.0-53.0); HGB 9.3 gm/dL (13.0-17.5); Hypochromasia Moderate; MCH 29.9 pg (25.0-35.0); MCHC 31.5 g/dL (31.0-37.0); Mean Platelet Volume 8.4; Platelet Count 324 k/uL (150-450); RDW 14.8 % (11.5-15.5); WBC 9.4 k/uL (3.8-10.6)
[2023-06-04 09:00] LABS: Magnesium 1.6 mg/dL (1.6-2.3)
[2023-06-04 09:03] LABS: African American GFR (CKD) >90 (>60 ml/min/1.73 sqM); Anion Gap 9 mmol/L; Blood Urea Nitrogen 13 mg/dL (9-20); C Reactive Protein 1.4 mg/dL (<1.0); Calcium 8.8 mg/dL (8.4-10.2); Carbon Dioxide 19 mmol/L (22-30); Chloride 106 mmol/L (98-107); Glucose 280 mg/dL (74-99); Non-African American GFR(CKD) >90 (>60 ml/min/1.73 sqM); Sodium 134 mmol/L (137-145)
--- NOTE | 2023-06-04 10:21 | P.PN ---
Subjective Progress Note Date: 06/04/23 63-year-old male who was sent over to the emergency room, by my partner, for empyema, as a complication of a previous episode of pneumonia, and parapneumonic effusion. Apparently, the patient got sick back in March. He apparently saw his primary care doctor was treated for pneumonia. Subsequent to that, because he wasn't really getting any better, he had a CAT scan, followed by another CAT scan, which revealed a complex fluid collection in the right chest. The patient was seen by my partner today, and sent to the hospital for evaluation by interventional radiology for pigtail catheter placement, and instillation of TPA and alpha dornase. According to patient's , the patient hasn't been feeling well since mid March. He's been losing weight, poor color, and just not feeling well. He has had fever, cough, and some phlegm production. In addition, he's had some pain in the right chest and back area. The patient has a history of diabetes, hyperlipidemia, and hypertension. He is a lifelong nonsmoker. White count is 17,000, hemoglobin 11.1, hematocrit 34.6, and a platelet count of 40 5,000. Sodium 136, potassium 4.5, chlorides 107, CO2 20, anion gap 9, BUN 33, and creatinine 0.96. Glucose 49. Albumin 3.3. Chest x-ray shows an air-fluid level within the right chest, and either a large cavity and/or abscess. The patient's currently on room air. He was given a dose of Rocephin and vancomycin. The patient is seen today 05/31/2023 in follow-up, in the emergency department. He is currently sitting up on a stretcher. Awake and alert in no acute distress. Somewhat restless. He is maintaining good O2 saturations in the mid 90s on room air. He's afebrile. Hemodynamically stable. Computed tomography scan of the chest revealed a collection of the right lung base with air fluid level, concerning for intrapulmonary abscess versus empyema. White count 14.2. Hemoglobin 10.4. Platelets 382. Sodium 137. Potassium 4.7. Bicarb 20. BUN 16. Creatinine 0.55. Glucose 117. He is continued on cefepime and vancomycin. Plan is for pigtail catheter placement today by interventional radiology. Progress note dated 06/01/2023. The patient is seen today in room 356. He is currently on room air. Is not receiving any IV fluids. He is receiving both vancomycin and cefepime for his suspected empyema. A pigtail catheter was placed on the right side, they interventional radiology yesterday. The patient had about 85 mL of output. White count 12.1, hemoglobin 10.2, hematocrit 31.9, within normal platelet count. Sodium 135, potassium 4.9, chlorides 105, CO2 24, BUN 12, and creatinine 0.54. Cultures are currently pending. Chest x-ray shows a right-sided pigtail catheter, with improvement of the abscess in the right lower lobe. Progress note dated 06/02/2023. 63-year-old male seen today in room 356. The patient had a pigtail catheter placed for an empyema, and the right lung. Apparently last night, the patient developed atrial fibrillation. Currently, he's on Cardizem 5 mg an hour. He's on room air. No IV fluids. He is getting vancomycin and cefepime currently, for his empyema. White count 10.9, hemoglobin 11.2, hematocrit 34.4, and platelet count is 353,000. Sodium 136, potassium 4.5, chlorides 107, CO2 21, BUN 10, creatinine 0.57. Glucose is 346. Progress note dated 06/03/2023. 63-year-old male seen today in room 356. The patient is doing reasonably well. He is on room air and getting saline at 10 mL an hour. The Cardizem drip, that was on yesterday, for atrial fibrillation, has been turned off. No new lab data today other than a glucose of 132. The patient remains on vancomycin and cefepime. Culture data is negative are pending. On today's evaluation of 06/04/2023, the patient is being seen for a follow-up. The patient is currently on room air oxygen. He has a pigtail catheter in his right chest to drain the right lung abscess. He remains on a combination of IV vancomycin and Unasyn. Infectious diseases on the case. The catheter was inserted on 05/31/2023. The output over the past 24 hours has been minimal. The fluid itself was consistent with empyema. The white cell count was quite elevated and the patient had a glucose of less than 2 and an LDH level of 2500 and above and a total protein level of 3.5 g. The microbiology on that fluid has been essentially negative for now. The fluid was also sent for cytology, results are still pending for now. His most recent labs show a white cell count 11.6 with a hemoglobin of 10 and a platelet count of 360. His BUN is 14 and a creatinine of 0.8. His most recent chest x-rays from 06/01/2023 and there is significant improvement in the right lung collection with small right-sided pleural effusion still present. Objective - Vital Signs Vital signs: Vital Signs Temp 98.7 F 06/04/23 04:00 Pulse 76 06/04/23 04:00 Resp 17 06/04/23 04:00 BP 116/66 06/04/23 04:00 Pulse Ox 96 06/04/23 09:28 FiO2 Intake & Output 06/03/23 06/04/23 06/04/23 18:59 06:59 18:59 Intake Total 360 1100 110 Output Total 0 20 Balance 360 1080 110 Intake: Intake, IV Titration 1100 Amount Cefepime 2 gm In Sodium 100 Chloride 0.9% 100 ml @ 25 mls/hr IVPB Q8H [facility] Rx#: [id number] Vancomycin 1,500 mg In 1000 Sodium Chloride 0.9% 500 ml 500 ml @ 167 mls/hr IVPB Q8H [facility] Rx#: [id number] Oral 360 110 Output: Chest Tube Drainage 20 Pleural Catheter Right 20 Posterior Chest Gastric Drainage 0 Urine 0 Stool 0 Urine/Stool Mix 0 Emesis 0 Oral Regurgitation 0 Other 0 Other: # Voids 2 1 # Bowel Movements 0 - Exam No acute distress, oriented 3. Currently on room air. Room air saturation 94%. HEENT examination is grossly unremarkable. Mucous membranes are moist. No oral lesions. Neck supple. Full range of motion. No adenopathy thyromegaly or neck vein distention. Cardiovascular examination reveals regular rhythm rate. S1-S2 normal. No S3 or S4. No discernible murmur noted. Lungs reveal diminished breath sounds throughout the right midlung and right base. Scattered rhonchi noted. No wheezes or crackles. Abdomen soft bowel sounds are heard. No masses or tenderness. Extremities are intact. No cyanosis clubbing or edema. Skin is without rash or lesion. Neurologic examination is brief but nonfocal. - Labs CBC & Chem 7: 06/04/23 08:13 06/04/23 08:13 Labs: Abnormal Lab Results - Last 24 Hours (Table) 06/03/23 06/03/23 06/03/23 Range/Units 11:27 12:47 12:47 WBC 11.6 H (3.8-10.6) k/uL RBC 3.42 L (4.30-5.90) m/uL Hgb 10.1 L (13.0-17.5) gm/dL Hct 32.2 L (39.0-53.0) % Sodium (137-145) mmol/L Chloride 108 H (98-107) mmol/L Carbon Dioxide 21 L (22-30) mmol/L Glucose 225 H (74-99) mg/dL POC Glucose (mg/dL) 155 H (70-110) mg/dL C-Reactive Protein (<1.0) mg/dL Vancomycin Trough ug/mL 06/03/23 06/03/23 06/04/23 Range/Units 16:42 19:51 01:01 WBC (3.8-10.6) k/uL RBC (4.30-5.90) m/uL Hgb (13.0-17.5) gm/dL Hct (39.0-53.0) % Sodium (137-145) mmol/L Chloride (98-107) mmol/L Carbon Dioxide (22-30) mmol/L Glucose (74-99) mg/dL POC Glucose (mg/dL) 131 H 129 H (70-110) mg/dL C-Reactive Protein (<1.0) mg/dL Vancomycin Trough 31.2 H* ug/mL 06/04/23 06/04/23 06/04/23 Range/Units 05:50 08:13 08:13 WBC (3.8-10.6) k/uL RBC 3.10 L (4.30-5.90) m/uL Hgb 9.3 L (13.0-17.5) gm/dL Hct 29.5 L (39.0-53.0) % Sodium 134 L (137-145) mmol/L Chloride (98-107) mmol/L Carbon Dioxide 19 L (22-30) mmol/L Glucose 280 H (74-99) mg/dL POC Glucose (mg/dL) 142 H (70-110) mg/dL C-Reactive Protein 1.4 H (<1.0) mg/dL Vancomycin Trough ug/mL Microbiology - Last 24 Hours (Table) 05/31/23 09:30 Gram Stain - Preliminary Pleural Fluid Body Fluid Culture - Preliminary 05/31/23 09:30 Anaerobic Culture - Preliminary Pleural Fluid Assessment and Plan Plan: Right lung abscess/empyema post pigtail catheter insertion and drainage. The fluid is consistent with possible and the cultures are negative and the patient remains on a combination of IV Unasyn and vancomycin for now. Cultures are all negative. Last chest x-ray from 06/01/2023 showed improvement in the right lung opacity. This may be a combination of a previous pneumonia that was dyson boptimally treated and the patient was hospitalized for a right lung abscess. Chronic respiratory illness characterized by weight loss, cough, phlegm production, fatigue, and chest pain, and an x-ray that suggested a fluid-filled abscess in the right chest. Empyema/lung abscess, right lower lobe. S/P pigtail catheter insertion, right posterior chest, 05/31/2023. Recent episode of pneumonia, with an illness that began about 6 weeks ago. History of hypertension. History of diabetes. History of hyperlipidemia. Lifelong nonsmoker. Plan: We'll repeat a CAT scan of the chest, no contrast and accordingly we'll decide if there is any need for further intervention regarding the possibility of alteplase administration. If the abscesses drained, may consider removing the pigtail catheter especially the output is minimal at this point in time. Continue the current antibiotic coverage. May benefit from long-term antibiotic therapy slightly sepsis. We'll coordinate care with infectious disease. We'll continue to follow.
[2023-06-04] MEDS: THIAMINE 100 MG TAB PO SCH (11:07)
[2023-06-04] MEDS: ENOXAPARIN 100 MG/ML SYRINGE SQ SCH (11:07)
[2023-06-04] MEDS: METOPROLOL TARTRATE 25 MG TAB PO SCH ×2 (11:07→21:01)
[2023-06-04] MEDS: FOLIC ACID 1 MG TAB PO SCH (11:07)
[2023-06-04 11:22] LABS: Glucose,Whole Blood 192 mg/dL (70-110)
--- NOTE | 2023-06-04 12:32 | P.PN ---
Subjective Progress Note Date: 06/04/23 Principal diagnosis: Empyema Patient is a 63-year-old male with a past medical history significant for hypertension hyperlipidemia diabetes mellitus apparently was diagnosed with pleurisy/pneumonia in mid March and has been treated with a course of antibiotics, subsequently did not have complete recovery complaining of fatigue and chills CT of the chest concerning for empyema patient is status post chest tube insertion on 05/31/2023. On today's evaluation that is 06/04/2023, patient denies having any fever or chills, the patient is breathing comfortably. Still some pain at the right chest tube site no nausea no vomiting no abdominal pain no diarrhea Patient is a white count 9.4 creatinine 0.73, vanco random Is 23, cultures currently pending Objective - Vital Signs Vital signs: Vital Signs Temp 98.4 F 06/04/23 08:15 Pulse 81 06/04/23 08:15 Resp 18 06/04/23 08:15 BP 150/68 06/04/23 08:15 Pulse Ox 96 06/04/23 09:28 FiO2 Intake & Output 06/03/23 06/04/23 06/04/23 18:59 06:59 18:59 Intake Total 360 1100 110 Output Total 0 20 Balance 360 1080 110 Intake: Intake, IV Titration 1100 Amount Cefepime 2 gm In Sodium 100 Chloride 0.9% 100 ml @ 25 mls/hr IVPB Q8H [facility] Rx#: [id number] Vancomycin 1,500 mg In 1000 Sodium Chloride 0.9% 500 ml 500 ml @ 167 mls/hr IVPB Q8H [facility] Rx#: [id number] Oral 360 110 Output: Chest Tube Drainage 20 Pleural Catheter Right 20 Posterior Chest Gastric Drainage 0 Urine 0 Stool 0 Urine/Stool Mix 0 Emesis 0 Oral Regurgitation 0 Other 0 Other: # Voids 2 1 # Bowel Movements 0 - Exam GENERAL DESCRIPTION: An elderly male lying in bed in no distress RESPIRATORY SYSTEM: Unlabored breathing , decreased breath sounds at bases HEART: S1 S2 regular rate and rhythm , ABDOMEN: Soft , no tenderness EXTREMITIES: No edema feet - Labs CBC & Chem 7: 06/04/23 08:13 06/04/23 08:13 Labs: Abnormal Lab Results - Last 24 Hours (Table) 06/03/23 06/03/23 06/03/23 Range/Units 12:47 12:47 16:42 WBC 11.6 H (3.8-10.6) k/uL RBC 3.42 L (4.30-5.90) m/uL Hgb 10.1 L (13.0-17.5) gm/dL Hct 32.2 L (39.0-53.0) % Sodium (137-145) mmol/L Chloride 108 H (98-107) mmol/L Carbon Dioxide 21 L (22-30) mmol/L Glucose 225 H (74-99) mg/dL POC Glucose (mg/dL) 131 H (70-110) mg/dL C-Reactive Protein (<1.0) mg/dL Vancomycin Trough ug/mL 06/03/23 06/04/23 06/04/23 Range/Units 19:51 01:01 05:50 WBC (3.8-10.6) k/uL RBC (4.30-5.90) m/uL Hgb (13.0-17.5) gm/dL Hct (39.0-53.0) % Sodium (137-145) mmol/L Chloride (98-107) mmol/L Carbon Dioxide (22-30) mmol/L Glucose (74-99) mg/dL POC Glucose (mg/dL) 129 H 142 H (70-110) mg/dL C-Reactive Protein (<1.0) mg/dL Vancomycin Trough 31.2 H* ug/mL 06/04/23 06/04/23 06/04/23 Range/Units 08:13 08:13 11:21 WBC (3.8-10.6) k/uL RBC 3.10 L (4.30-5.90) m/uL Hgb 9.3 L (13.0-17.5) gm/dL Hct 29.5 L (39.0-53.0) % Sodium 134 L (137-145) mmol/L Chloride (98-107) mmol/L Carbon Dioxide 19 L (22-30) mmol/L Glucose 280 H (74-99) mg/dL POC Glucose (mg/dL) 192 H (70-110) mg/dL C-Reactive Protein 1.4 H (<1.0) mg/dL Vancomycin Trough ug/mL Microbiology - Last 24 Hours (Table) 05/31/23 09:30 Gram Stain - Preliminary Pleural Fluid Body Fluid Culture - Preliminary 05/31/23 09:30 Anaerobic Culture - Preliminary Pleural Fluid Assessment and Plan (1) Empyema lung Current Visit: Yes Status: Acute Code(s): J86.9 - PYOTHORAX WITHOUT FISTULA SNOMED Code(s): 20517309 Plan: 1patient with right-sided empyema in this patient has been diagnosed with a pneumonia in mid March and treated with a course of antibiotic patient not very clear about the name of that antibiotic patient is s/p chest tube placement on 05/31/2023 however the culture has not been finalized so far it is negative for any resistant gram-positive or gram-negative pathogen question of possible anaerobic pathogen. 2patient to continue with vancomycin however does need to be adjusted to get a trough around 15 and continue with Unasyn 3 g every 6 hours Dictation was produced using [employer] dictation software. please excuse any grammatical, word or spelling errors. Time with Patient: Less than 30
--- NOTE | 2023-06-04 12:48 | P.PN ---
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 The patient was struggling with a pneumonia a few months ago. Because he continues to be symptomatic interim of cough productive of sputum as well as weight loss as well as multiple other symptoms he underwent a computed tomography scan and that showed fluid collection in the right pleural space consistent of possible abscess and inf ection. The patient was subsequently admitted and started on antibiotic. We consulted to see the patient because of atrial fibrillation with RVR which is new to him. The patient never been diagnosed was atrial fibrillation before. The patient was asymptomatic in terms of heart racing or fluttering or dizziness or lightheadedness or any symptoms of chest pain or chest discomfort. He continues to be in atrial fibrillation with overall controlled heart rate on the current dose of Cardizem IV. He was on Lovenox at a daily dose which I increased it to twice a day at this point. We'll consider starting the patient on oral anticoagulation once we know that he doesn't need any further surgical procedure. An echocardiogram is in process to be done The examination is remarkable for stable vital signs with irregular rhythm and diminished breathing sounds over the right side with evidence of pigtail catheter in the right chest. No lower extremity edema noted [id number] The patient was seen and evaluated this morning. He was converted to normal sinus mechanism has been maintaining normal sinus mechanism as well. He is on metoprolol orally. He is on Lovenox twice a day. I will keep him on the current dose of Lovenox which is a therapeutic dose to be noted that the patient does not require any surgical intervention and at that point we'll consider switching the patient into oral anticoagulation. Beside that the echo revealed normal biventricular dimension and systolic function was evidence of moderate aortic stenosis and mild aortic insufficiency. He is asymptomatic at this point. He continues on antibiotic as well. The examination is remarkable for regular rhythm with a systolic murmur at the right upper sternal border and diminished breathing sounds mostly on the right than the left. 06/04/2023 Patient examined this morning at the bedside. Patient denies chest pain or pressure. He denies shortness of breath. Telemetry reveals sinus mechanism in the 70s. He remains on therapeutic Lovenox. PHYSICAL EXAM: VITAL SIGNS: Reviewed. GENERAL: Well-developed in no acute distress. NECK: Supple. No JVD or thyromegaly LUNGS: Respirations even and unlabored. Lungs essentially clear to auscultation bilaterally. HEART: Regular rate and rhythm. S1 and S2 heard. Systolic murmur noted. EXTREMITIES: Normal range of motion. No clubbing or cyanosis. Peripheral pulses intact. No lower extremity edema ASSESSMENT: Right lung abscess/empyema Status post pigtail catheter insertion and drainage New-onset paroxysmal atrial fibrillation, currently maintaining sinus mechanism Valvular heart disease Hypertension Hyperlipidemia Diabetes PLAN: Discontinue Lovenox. Begin Eliquis 5mg BID. Continue additional cardiac medications Pulmonary following. CT of the chest ordered Antibiotics per infectious disease Further recommendations pending patient's course Nurse practitioner note has been reviewed by physician. Signing provider agrees with the documented findings, assessment, and plan of care. Objective - Vital Signs Vital signs: Vital Signs Temp 98.4 F 06/04/23 08:15 Pulse 81 06/04/23 08:15 Resp 18 06/04/23 08:15 BP 150/68 06/04/23 08:15 Pulse Ox 96 06/04/23 09:28 FiO2 Intake & Output 06/03/23 06/04/23 06/04/23 18:59 06:59 18:59 Intake Total 360 1100 220 Output Total 0 20 0 Balance 360 1080 220 Intake: Intake, IV Titration 1100 Amount Cefepime 2 gm In Sodium 100 Chloride 0.9% 100 ml @ 25 mls/hr IVPB Q8H [facility] Rx#: [id number] Vancomycin 1,500 mg In 1000 Sodium Chloride 0.9% 500 ml 500 ml @ 167 mls/hr IVPB Q8H [facility] Rx#: [id number] Oral 360 220 Output: Chest Tube Drainage 20 Pleural Catheter Right 20 Posterior Chest Gastric Drainage 0 Urine 0 Stool 0 0 Urine/Stool Mix 0 Emesis 0 Oral Regurgitation 0 Other 0 Other: # Voids 2 1 # Bowel Movements 0 - Labs CBC & Chem 7: 06/04/23 08:13 06/04/23 08:13 Labs: Abnormal Lab Results - Last 24 Hours (Table) 06/03/23 06/03/23 06/03/23 Range/Units 12:47 12:47 16:42 WBC 11.6 H (3.8-10.6) k/uL RBC 3.42 L (4.30-5.90) m/uL Hgb 10.1 L (13.0-17.5) gm/dL Hct 32.2 L (39.0-53.0) % Sodium (137-145) mmol/L Chloride 108 H (98-107) mmol/L Carbon Dioxide 21 L (22-30) mmol/L Glucose 225 H (74-99) mg/dL POC Glucose (mg/dL) 131 H (70-110) mg/dL C-Reactive Protein (<1.0) mg/dL Vancomycin Trough ug/mL 06/03/23 06/04/23 06/04/23 Range/Units 19:51 01:01 05:50 WBC (3.8-10.6) k/uL RBC (4.30-5.90) m/uL Hgb (13.0-17.5) gm/dL Hct (39.0-53.0) % Sodium (137-145) mmol/L Chloride (98-107) mmol/L Carbon Dioxide (22-30) mmol/L Glucose (74-99) mg/dL POC Glucose (mg/dL) 129 H 142 H (70-110) mg/dL C-Reactive Protein (<1.0) mg/dL Vancomycin Trough 31.2 H* ug/mL 06/04/23 06/04/23 06/04/23 Range/Units 08:13 08:13 11:21 WBC (3.8-10.6) k/uL RBC 3.10 L (4.30-5.90) m/uL Hgb 9.3 L (13.0-17.5) gm/dL Hct 29.5 L (39.0-53.0) % Sodium 134 L (137-145) mmol/L Chloride (98-107) mmol/L Carbon Dioxide 19 L (22-30) mmol/L Glucose 280 H (74-99) mg/dL POC Glucose (mg/dL) 192 H (70-110) mg/dL C-Reactive Protein 1.4 H (<1.0) mg/dL Vancomycin Trough ug/mL Microbiology - Last 24 Hours (Table) 05/31/23 09:30 Gram Stain - Preliminary Pleural Fluid Body Fluid Culture - Preliminary 05/31/23 09:30 Anaerobic Culture - Preliminary Pleural Fluid
[2023-06-04 16:35] LABS: Glucose,Whole Blood 166 mg/dL (70-110)
--- NOTE | 2023-06-04 16:50 | CT ---
EXAMINATION TYPE: CT chest wo con DATE OF EXAM: 06/04/2023 COMPARISON: 05/30/2023 HISTORY: 63-year-old male FOLLOW UP EMPYEMA TECHNIQUE: Contiguous axial scanning of the chest without contrast. Coronal/sagittal reconstructions performed. CT DLP: 183.1mGycm. Automatic exposure control utilized for a dose reduction. FINDINGS: The heart is borderline enlarged without pericardial effusion. Moderate aortic valvular calcification s are present. Scattered mild coronary artery calcifications. Ectatic ascending aorta at 3.9 cm. Mild atherosclerotic arch calcifications. Conventional arterial ve ssel branching anatomy. Borderline sized right paratracheal nodes measuring up to 9 mm are similar. Right-sided pleural catheter remains in place. There is trace residual fluid within the thick walled, right basilar empyema cavity which is collapse d down to 1.3 cm thick versus 5.0 cm, previously. Air within the pleural space in keeping with instru mentation. Wall thickening up to 1.5 cm. Adjacent focal opacity could represent some adjacent pneumonia. However, the area looks relatively si milar and we favor rounded atelectasis. Some patchy round glass change scattered throughout the left lung is slightly improved from 05/30/2023 . Visualized upper abdomen shows no gross abnormality. No osseous destructive process. IMPRESSION: 1. Right-sided pigtail pleural catheter located within the patient's right basilar empyema cavity. Th e cavity is smaller now measuring 1.3 cm thick versus 5.0 cm, previously. Mild fluid and air remains within the empyema cavity. The wall of the cavity remains thickened up to 1.5 cm. 2. The adjacent right basilar opacity is favored to represent rounded atelectasis. Follow-up to ensur e stability/clearance. 3. Mild groundglass densities throughout the left lung shows some improvement from 05/30/2023. This co uld represent residual areas of patchy pneumonitis on the left.
--- NOTE | 2023-06-04 19:08 | P.PN ---
Progress Note - Text Progress Note Date: 06/04/23 Patient is a 63-year-old male with diabetes, hypertension, and dyslipidemia who was directed to the ER by Dr. Helder newell due to concerns for empyema and right sided pleural effusion. Patient was initially diagnosed with pneumonia in March and was prescribed antibiotics he continued to have generalized fatigue and has lost approximately 30 pounds in the last 1-2 months. Primary care physician repeated CT of the chest which demonstrated loculated pleural effusion with air fluid levels and concern for empyema and the patient was subsequently referred to pulmonology. On his first appointment with pulmonology on 05/30 he was referred to the emergency department. On arrival to the ER he was hypotensive with a blood pressure of 78/50. Laboratory analysis was remarkable for white blood cell count of 17, hemoglobin 11.1, sodium 136, CO2 20, BUN 33, glucose of 49. Chest x-ray showed right-sided pleural effusion with air fluid levels in the mid chest, left atrial enlargement. The patient was subsequently admitted and pulmonary was consulted. Patient was started on cefepime, blood cultures were ordered, and he was started on fluids at 130 mL/h. he was seen by pulmonary who recommended pigtail catheter and continued IV antibiotics. He developed tachycardia overnight on 06/01 and was subsequently found to have atrial fibrillation with rapid ventricular response. He was started on full dose Lovenox and was given a trial of IV metoprolol and then necessitated a Cardizem drip. Cardiology was consulted. He was started on oral metoprolol and Cardizem was discontinued. Echo showed a preserved EF with moderate aortic stenosis 06/04/2023: I assumed care of the patient today. Some cough is present. Occasional phlegm. Appetite is good. No pain. About 20 mL/12 hour output to the right chest tube. Computed tomography scan done today shows cavity to be smaller from down from 5 cm to 1.3 cm. One of the cavity remains thickened at 1.5 cm. Rounded atelectasis. Active Medications Acetaminophen (Acetaminophen Tab 325 Mg Tab) 650 mg PO Q6HR PRN PRN Reason: Mild Pain or Fever > 100.5 Hydrocodone Bitart/Acetaminophen (Hydrocodone/Apap 7.5-325mg 1 Each Tab) 1 each PO Q6HR PRN PRN Reason: Mild to Moderate Pain (1 - 6) Last Admin: 05/31/23 20:02 Dose: 1 each Apixaban (Apixaban 5 Mg Tab) 5 mg PO BID [facility]; Protocol Atorvastatin Calcium (Atorvastatin 20 Mg Tab) 20 mg PO HS [facility] Last Admin: 06/03/23 20:23 Dose: 20 mg Dextrose/Water (Dextrose 50% Syringe 50 Ml) 25 ml IVP PER PROTOCOL PRN; Protocol PRN Reason: Hypoglycemia Dextrose/Water (Dextrose 50% Syringe 50 Ml) 50 ml IVP PER PROTOCOL PRN; Protocol PRN Reason: Hypoglycemia Folic Acid (Folic Acid 1 Mg Tab) 1 mg PO DAILY [facility] Last Admin: 06/04/23 11:07 Dose: 1 mg Hydromorphone HCl (Hydromorphone 0.5 Mg/0.5 Ml Syringe) 0.5 mg IVP Q3HR PRN PRN Reason: Severe Pain (Scale 7 to 10) Ampicillin Sodium/Sulbactam (Sodium 3 gm/ Sodium Chloride) 100 mls @ 200 mls/hr IVPB Q6HR [facility]; Protocol Last Admin: 06/04/23 13:17 Dose: 200 mls/hr Vancomycin HCl 1,500 mg/ (Sodium Chloride) 500 mls @ 167 mls/hr IVPB Q16H [facility] Last Admin: 06/04/23 16:05 Dose: 167 mls/hr Insulin Aspart (Insulin Aspart (Novolog) 100 Unit/Ml Vial) 0 unit SQ AC-TID [facility]; Protocol Last Admin: 06/04/23 18:10 Dose: 1 unit Insulin Aspart (Insulin Aspart (Novolog) 100 Unit/Ml Vial) 2 unit SQ AC-TID [facility] Last Admin: 06/04/23 18:10 Dose: 2 unit Insulin Detemir (Insulin Detemir (Levemir) 100 Unit/Ml Syr) 10 unit SQ HS [facility] Last Admin: 06/03/23 20:51 Dose: 10 unit Lorazepam (Lorazepam 2 Mg/Ml Inj) 1 mg IV Q1HR PRN PRN Reason: CIWA 10 to 15 Lorazepam (Lorazepam 2 Mg/Ml Inj) 1 mg IV Q2HR PRN PRN Reason: CIWA 8 or 9 Melatonin (Melatonin 5 Mg Tablet) 5 mg PO HS [facility] Last Admin: 06/03/23 20:23 Dose: 5 mg Metoprolol Tartrate (Metoprolol Tartrate 25 Mg Tab) 25 mg PO BID [facility] Last Admin: 06/04/23 11:07 Dose: 25 mg Naloxone HCl (Naloxone 0.4 Mg/Ml 1 Ml Vial) 0.2 mg IV Q2M PRN PRN Reason: Opioid Reversal Ondansetron HCl (Ondansetron 4 Mg/2 Ml Vial) 4 mg IVP Q8HR PRN PRN Reason: Nausea And Vomiting Thiamine HCl (Thiamine 100 Mg Tab) 100 mg PO DAILY [facility] Last Admin: 06/04/23 11:07 Dose: 100 mg On examination: VITAL SIGNS: [97.7, 70, 17, 1 46 x 67, 98% room air] GENERAL APPEARANCE: Sitting at the edge of the bed, comfortable HEENT: Normal external appearance of nose and ear. Oral cavity normal EYES: Pupils equal. Conjunctiva normal. NECK: JVD not raised. Mass not palpable. RESPIRATORY: Respiratory effort normal. Lungs trace breath sound. Right-sided chest tube CARDIOVASCULAR: First and second sounds normal. No edema. ABDOMEN: Soft. Liver and spleen not palpable. No tenderness. No mass palpable. PSYCHIATRY: Alert and oriented x3. Mood and affect normal. INVESTIGATIONS, reviewed in the clinical context: June 04: White count 9.4 hemoglobin 9.3 platelets 324 sodium 134 potassium 4 creatinine 0.75. Procalcitonin 0.06 CT chest [June 04]: Right-sided pigtail pleural catheter. Right empyema cavity smaller from 5 cm down to 1.3 cm. One of the cavity remains thickened at 1.5 cm. Found at the epistaxis. Mild groundglass of densities throughout the left lung. 2-D echocardiogram: EF 55-60%. Moderately increased septal wall thickness. Moderate aortic valve sclerosis/moderate aortic stenosis peak gradient 46 mm, mean gradient 26 mm. Pleural fluid cytology: Negative for malignant cells. Assessment/Plan: -Left-sided Empyema /intrapulmonary abscess s/p pig tail cath 05/31/23 , causing sepsis: Improving IV Unasyn. IV vancomycin. Pleural fluid cultures negative up until now -Sepsis from above. Better -Hypotension, resolved -Paroxysmal P. A fib with RVR, new onset, now back in sinus rhythm. - cardio note reviewed and continue current meds - Eliquis started - Metoprolol 25 mg BID -Diabetes mellitus type II -Resume Actos and metformin, follow Accu-Cheks with sliding scale -Essential hypertension Lopressor -Hyperlipidemia Lipitor Discussed with the patient. Follow with ID pulmonary.
[2023-06-04 19:58] LABS: Glucose,Whole Blood 230 mg/dL (70-110)
[2023-06-04] MEDS: MELATONIN 5 MG TABLET PO SCH (21:01)
[2023-06-04] MEDS: APIXABAN 5 MG TAB PO SCH (21:01)
[2023-06-04] MEDS: ATORVASTATIN 20 MG TAB PO SCH (21:02)
[2023-06-04] MEDS: INSULIN DETEMIR (LEVEMIR) 100 UNIT/ML SYR SQ SCH (21:30)
[2023-06-04] MEDS: PIOGLITAZONE 15 MG TAB PO SCH (21:30)
[2023-06-04] MEDS: metFORMIN 500 MG TAB PO SCH (21:31)
[2023-06-05 06:03] LABS: Glucose,Whole Blood 109 mg/dL (70-110)
[2023-06-05] MEDS: INSULIN ASPART (NovoLOG) 100 UNIT/ML VIAL SQ SCH ×4 (06:06→17:09)
[2023-06-05] MEDS: VANCOMYCIN 1,500 MG in SODIUM CHLORIDE 0.9% 500 ML 500 ML IVPB SCH ×2 (06:08→06:10)
[2023-06-05] MEDS: AMPICILLIN-SULBACTAM 3 GM in SODIUM CHLORIDE 0.9% 100 ML IVPB SCH ×4 (06:43→23:51)
[2023-06-05] MEDS: metFORMIN 500 MG TAB PO SCH ×2 (06:44→21:32)
[2023-06-05] MEDS: METOPROLOL TARTRATE 25 MG TAB PO SCH ×2 (08:29→21:33)
[2023-06-05] MEDS: THIAMINE 100 MG TAB PO SCH (08:29)
[2023-06-05] MEDS: APIXABAN 5 MG TAB PO SCH ×2 (08:29→21:33)
[2023-06-05] MEDS: FOLIC ACID 1 MG TAB PO SCH (08:29)
[2023-06-05 09:26] LABS: Basophils % (A) 0 %; Eosinophils # (A) 0.3 k/uL (0-0.7); Eosinophils % (A) 4 %; HCT 28.9 % (39.0-53.0); HGB 9.4 gm/dL (13.0-17.5); Hypochromasia Slight; Lymphocytes # (A) 3.4 k/uL (1.0-4.8); Lymphocytes % (A) 38 %; MCH 30.2 pg (25.0-35.0); MCHC 32.3 g/dL (31.0-37.0); MCV 93.3 fL (80.0-100.0); Mean Platelet Volume 8.5; Monocytes # (A) 0.4 k/uL (0-1.0); Monocytes % (A) 5 %; Neutrophils # (A) 4.7 k/uL (1.3-7.7); Neutrophils % (A) 53 %; Platelet Count 332 k/uL (150-450); WBC 8.9 k/uL (3.8-10.6)
[2023-06-05 09:32] LABS: African American GFR (CKD) >90 (>60 ml/min/1.73 sqM); Anion Gap 8 mmol/L; Blood Urea Nitrogen 9 mg/dL (9-20); Calcium 8.7 mg/dL (8.4-10.2); Carbon Dioxide 22 mmol/L (22-30); Chloride 108 mmol/L (98-107); Glucose 163 mg/dL (74-99); Magnesium 1.5 mg/dL (1.6-2.3); Non-African American GFR(CKD) >90 (>60 ml/min/1.73 sqM); Sodium 138 mmol/L (137-145)
[2023-06-05] MEDS ORDERED: Magnesium Replacement Protocol 1 EACH MISC MISCELLANE PRN (09:33)
[2023-06-05] MEDS: MAGNESIUM SULFATE-D5W PMX 1 GM in DEXTROSE/WATER 1 100ML.BAG IVPB SCH ×2 (10:16→11:31)
[2023-06-05 11:26] LABS: Glucose,Whole Blood 128 mg/dL (70-110)
--- NOTE | 2023-06-05 11:38 | P.PN ---
Subjective Progress Note Date: 06/05/23 63-year-old male who was sent over to the emergency room, by my partner, for empyema, as a complication of a previous episode of pneumonia, and parapneumonic effusion. Apparently, the patient got sick back in March. He apparently saw his primary care doctor was treated for pneumonia. Subsequent to that, because he wasn't really getting any better, he had a CAT scan, followed by another CAT scan, which revealed a complex fluid collection in the right chest. The patient was seen by my partner today, and sent to the hospital for evaluation by interventional radiology for pigtail catheter placement, and instillation of TPA and alpha dornase. According to patient's , the patient hasn't been feeling well since mid March. He's been losing weight, poor color, and just not feeling well. He has had fever, cough, and some phlegm production. In addition, he's had some pain in the right chest and back area. The patient has a history of diabetes, hyperlipidemia, and hypertension. He is a lifelong nonsmoker. White count is 17,000, hemoglobin 11.1, hematocrit 34.6, and a platelet count of 40 5,000. Sodium 136, potassium 4.5, chlorides 107, CO2 20, anion gap 9, BUN 33, and creatinine 0.96. Glucose 49. Albumin 3.3. Chest x-ray shows an air-fluid level within the right chest, and either a large cavity and/or abscess. The patient's currently on room air. He was given a dose of Rocephin and vancomycin. The patient is seen today 05/31/2023 in follow-up, in the emergency department. He is currently sitting up on a stretcher. Awake and alert in no acute distress. Somewhat restless. He is maintaining good O2 saturations in the mid 90s on room air. He's afebrile. Hemodynamically stable. Computed tomography scan of the chest revealed a collection of the right lung base with air fluid level, concerning for intrapulmonary abscess versus empyema. White count 14.2. Hemoglobin 10.4. Platelets 382. Sodium 137. Potassium 4.7. Bicarb 20. BUN 16. Creatinine 0.55. Glucose 117. He is continued on cefepime and vancomycin. Plan is for pigtail catheter placement today by interventional radiology. Progress note dated 06/01/2023. The patient is seen today in room 356. He is currently on room air. Is not receiving any IV fluids. He is receiving both vancomycin and cefepime for his suspected empyema. A pigtail catheter was placed on the right side, they interventional radiology yesterday. The patient had about 85 mL of output. White count 12.1, hemoglobin 10.2, hematocrit 31.9, within normal platelet count. Sodium 135, potassium 4.9, chlorides 105, CO2 24, BUN 12, and creatinine 0.54. Cultures are currently pending. Chest x-ray shows a right-sided pigtail catheter, with improvement of the abscess in the right lower lobe. Progress note dated 06/02/2023. 63-year-old male seen today in room 356. The patient had a pigtail catheter placed for an empyema, and the right lung. Apparently last night, the patient developed atrial fibrillation. Currently, he's on Cardizem 5 mg an hour. He's on room air. No IV fluids. He is getting vancomycin and cefepime currently, for his empyema. White count 10.9, hemoglobin 11.2, hematocrit 34.4, and platelet count is 353,000. Sodium 136, potassium 4.5, chlorides 107, CO2 21, BUN 10, creatinine 0.57. Glucose is 346. Progress note dated 06/03/2023. 63-year-old male seen today in room 356. The patient is doing reasonably well. He is on room air and getting saline at 10 mL an hour. The Cardizem drip, that was on yesterday, for atrial fibrillation, has been turned off. No new lab data today other than a glucose of 132. The patient remains on vancomycin and cefepime. Culture data is negative are pending. On today's evaluation of 06/04/2023, the patient is being seen for a follow-up. The patient is currently on room air oxygen. He has a pigtail catheter in his right chest to drain the right lung abscess. He remains on a combination of IV vancomycin and Unasyn. Infectious diseases on the case. The catheter was inserted on 05/31/2023. The output over the past 24 hours has been minimal. The fluid itself was consistent with empyema. The white cell count was quite elevated and the patient had a glucose of less than 2 and an LDH level of 2500 and above and a total protein level of 3.5 g. The microbiology on that fluid has been essentially negative for now. The fluid was also sent for cytology, results are still pending for now. His most recent labs show a white cell count 11.6 with a hemoglobin of 10 and a platelet count of 360. His BUN is 14 and a creatinine of 0.8. His most recent chest x-rays from 06/01/2023 and there is significant improvement in the right lung collection with small right-sided pleural effusion still present. On today's evaluation of 06/05/2023, the patient is on room air oxygen, afebrile and is calm and comfortable without any signs of any systemic toxicity. The pigtail catheter drained minimal in the order of 10 mL over the past 24 hours and the CAT scan of the chest was completed yesterday, and there is obvious improvement in the right lung empyema. The cavity is much smaller and measuring approximately 1 cm. There is mild amount of fluid and air remaining in the cavity. There is also some rounded atelectasis surrounding the area of empyema. The findings of essentially improved and there is also improvement in the groundglass infiltrates on the left. The patient remains on the same antibiotic coverage. The patient has abdominal discomfort of 8.9 with a hemoglobin of 9.4. BUN is at 9 with a creatinine of 0.7 and a sodium level is at 138. Objective - Vital Signs Vital signs: Vital Signs Temp 98.0 F 06/05/23 08:00 Pulse 77 06/05/23 08:00 Resp 16 06/05/23 08:00 BP 146/65 06/05/23 08:00 Pulse Ox 95 06/05/23 08:00 FiO2 Intake & Output 06/04/23 06/05/23 06/05/23 18:59 06:59 18:59 Intake Total 330 350 Output Total 0 20 0 Balance 330 -20 350 Weight 98.7 kg Intake: Oral 330 350 Output: Chest Tube Drainage 20 Pleural Catheter Right 20 Posterior Chest Stool 0 0 0 Other: # Voids 3 4 # Bowel Movements 1 - Exam No acute distress, oriented 3. Currently on room air. Room air saturation 94%. HEENT examination is grossly unremarkable. Mucous membranes are moist. No oral lesions. Neck supple. Full range of motion. No adenopathy thyromegaly or neck vein distention. Cardiovascular examination reveals regular rhythm rate. S1-S2 normal. No S3 or S4. No discernible murmur noted. Lungs reveal diminished breath sounds throughout the right midlung and right base. Scattered rhonchi noted. No wheezes or crackles. Abdomen soft bowel sounds are heard. No masses or tenderness. Extremities are intact. No cyanosis clubbing or edema. Skin is without rash or lesion. Neurologic examination is brief but nonfocal. - Labs CBC & Chem 7: 06/05/23 08:55 06/05/23 08:55 Labs: Abnormal Lab Results - Last 24 Hours (Table) 06/04/23 06/04/23 06/04/23 Range/Units 11:21 16:33 19:57 RBC (4.30-5.90) m/uL Hgb (13.0-17.5) gm/dL Hct (39.0-53.0) % Chloride (98-107) mmol/L Glucose (74-99) mg/dL POC Glucose (mg/dL) 192 H 166 H 230 H (70-110) mg/dL Magnesium (1.6-2.3) mg/dL 06/05/23 06/05/23 Range/Units 08:55 08:55 RBC 3.10 L (4.30-5.90) m/uL Hgb 9.4 L (13.0-17.5) gm/dL Hct 28.9 L (39.0-53.0) % Chloride 108 H (98-107) mmol/L Glucose 163 H (74-99) mg/dL POC Glucose (mg/dL) (70-110) mg/dL Magnesium 1.5 L (1.6-2.3) mg/dL Microbiology - Last 24 Hours (Table) 05/31/23 09:30 Gram Stain - Final Pleural Fluid Body Fluid Culture - Final 05/30/23 10:50 Blood Culture - Final Blood 05/30/23 11:23 Blood Culture - Final Blood Assessment and Plan Plan: Right lung abscess/empyema post pigtail catheter insertion and drainage. The fluid is consistent with possible and the cultures are negative and the patient remains on a combination of IV Unasyn and vancomycin for now. Cultures are all negative. Last chest x-ray from 06/01/2023 showed improvement in the right lung opacity. This may be a combination of a previous pneumonia that was subo ptimally treated and the patient was hospitalized for a right lung abscess. Chronic respiratory illness characterized by weight loss, cough, phlegm production, fatigue, and chest pain, and an x-ray that suggested a fluid-filled abscess in the right chest. Empyema/lung abscess, right lower lobe. S/P pigtail catheter insertion, right posterior chest, 05/31/2023. Recent episode of pneumonia, with an illness that began about 6 weeks ago. History of hypertension. History of diabetes. History of hyperlipidemia. Lifelong nonsmoker. Plan: CAT scan findings showed improvement in the right lung empyema with minimal amount of fluid and atelectasis in the right lung base. Groundglass changes in the left improved. THE OUTPUT FROM THE PIGTAIL CATHETER IS MINIMAL Discussed the findings with infectious disease physician. We'll make a decision on oral versus IV antibiotics and ultimately the pigtail catheter removed and the patient will be discharged home to followed up on outpatient basis. No need for surgical intervention Obvious clinical improvement and improvement of the radiographic findings.
--- NOTE | 2023-06-05 14:23 | P.PN ---
Progress Note - Text Progress Note Date: 06/05/23 Patient is a 63-year-old male with diabetes, hypertension, and dyslipidemia who was directed to the ER by Dr. Helder newell due to concerns for empyema and right sided pleural effusion. Patient was initially diagnosed with pneumonia in March and was prescribed antibiotics he continued to have generalized fatigue and has lost approximately 30 pounds in the last 1-2 months. Primary care physician repeated CT of the chest which demonstrated loculated pleural effusion with air fluid levels and concern for empyema and the patient was subsequently referred to pulmonology. On his first appointment with pulmonology on 05/30 he was referred to the emergency department. On arrival to the ER he was hypotensive with a blood pressure of 78/50. Laboratory analysis was remarkable for white blood cell count of 17, hemoglobin 11.1, sodium 136, CO2 20, BUN 33, glucose of 49. Chest x-ray showed right-sided pleural effusion with air fluid levels in the mid chest, left atrial enlargement. The patient was subsequently admitted and pulmonary was consulted. Patient was started on cefepime, blood cultures were ordered, and he was started on fluids at 130 mL/h. he was seen by pulmonary who recommended pigtail catheter and continued IV antibiotics. He developed tachycardia overnight on 06/01 and was subsequently found to have atrial fibrillation with rapid ventricular response. He was started on full dose Lovenox and was given a trial of IV metoprolol and then necessitated a Cardizem drip. Cardiology was consulted. He was started on oral metoprolol and Cardizem was discontinued. Echo showed a preserved EF with moderate aortic stenosis 06/04/2023: I assumed care of the patient today. Some cough is present. Occasional phlegm. Appetite is good. No pain. About 20 mL/12 hour output to the right chest tube. Computed tomography scan done today shows cavity to be smaller from down from 5 cm to 1.3 cm. One of the cavity remains thickened at 1.5 cm. Rounded atelectasis. 06/05/2023: Comfortable. Some cough. Minimal output from the pigtail catheter. Cultures remain negative. Planning for pigtail catheter. Removed. Antibiotics to be discharged as per ID.. Active Medications Acetaminophen (Acetaminophen Tab 325 Mg Tab) 650 mg PO Q6HR PRN PRN Reason: Mild Pain or Fever > 100.5 Hydrocodone Bitart/Acetaminophen (Hydrocodone/Apap 7.5-325mg 1 Each Tab) 1 each PO Q6HR PRN PRN Reason: Mild to Moderate Pain (1 - 6) Last Admin: 05/31/23 20:02 Dose: 1 each Apixaban (Apixaban 5 Mg Tab) 5 mg PO BID [facility]; Protocol Last Admin: 06/05/23 08:29 Dose: 5 mg Atorvastatin Calcium (Atorvastatin 20 Mg Tab) 20 mg PO HS [facility] Last Admin: 06/04/23 21:02 Dose: 20 mg Dextrose/Water (Dextrose 50% Syringe 50 Ml) 25 ml IVP PER PROTOCOL PRN; Protocol PRN Reason: Hypoglycemia Dextrose/Water (Dextrose 50% Syringe 50 Ml) 50 ml IVP PER PROTOCOL PRN; Protocol PRN Reason: Hypoglycemia Folic Acid (Folic Acid 1 Mg Tab) 1 mg PO DAILY [facility] Last Admin: 06/05/23 08:29 Dose: 1 mg Lisinopril/HCTZ (Lisinopril-Hctz 20-12.5 Mg 1 Each Tab) 1 each PO HS [facility] Hydromorphone HCl (Hydromorphone 0.5 Mg/0.5 Ml Syringe) 0.5 mg IVP Q3HR PRN PRN Reason: Severe Pain (Scale 7 to 10) Ampicillin Sodium/Sulbactam (Sodium 3 gm/ Sodium Chloride) 100 mls @ 200 mls/hr IVPB Q6HR [facility]; Protocol Last Admin: 06/05/23 12:40 Dose: 200 mls/hr Insulin Aspart (Insulin Aspart (Novolog) 100 Unit/Ml Vial) 0 unit SQ AC-TID [facility]; Protocol Last Admin: 06/05/23 11:39 Dose: Not Given Insulin Detemir (Insulin Detemir (Levemir) 100 Unit/Ml Syr) 10 unit SQ HS [facility] Last Admin: 06/04/23 21:30 Dose: 10 unit Lorazepam (Lorazepam 2 Mg/Ml Inj) 1 mg IV Q1HR PRN PRN Reason: CIWA 10 to 15 Lorazepam (Lorazepam 2 Mg/Ml Inj) 1 mg IV Q2HR PRN PRN Reason: CIWA 8 or 9 Melatonin (Melatonin 5 Mg Tablet) 5 mg PO [facility] Last Admin: 06/04/23 21:01 Dose: 5 mg Metformin HCl (Metformin 500 Mg Tab) 1,000 mg PO BID-W/[facility]ALS [facility] Last Admin: 06/05/23 06:44 Dose: 1,000 mg Metoprolol Tartrate (Metoprolol Tartrate 25 Mg Tab) 25 mg PO BID [facility] Last Admin: 06/05/23 08:29 Dose: 25 mg Miscellaneous Information (Magnesium Replacement Protocol 1 Each Misc) 1 each MISCELLANE DAILY PRN; Protocol PRN Reason: Per Protocol Naloxone HCl (Naloxone 0.4 Mg/Ml 1 Ml Vial) 0.2 mg IV Q2M PRN PRN Reason: Opioid Reversal Dulaglutide [ Trulicity] 1.5 Mg/0. 5 Ml Each 1.5 mg SQ [facility] Ondansetron HCl (Ondansetron 4 Mg/2 Ml Vial) 4 mg IVP Q8HR PRN PRN Reason: Nausea And Vomiting Pioglitazone HCl (Pioglitazone 15 Mg Tab) 15 mg PO HS [facility] Last Admin: 06/04/23 21:30 Dose: 15 mg Thiamine HCl (Thiamine 100 Mg Tab) 100 mg PO DAILY [facility] Last Admin: 06/05/23 08:29 Dose: 100 mg On examination: VITAL SIGNS: 98, 73, 18, 140/75, 97% room air GENERAL APPEARANCE: Sitting at the edge of the bed, comfortable HEENT: Normal external appearance of nose and ear. Oral cavity normal EYES: Pupils equal. Conjunctiva normal. NECK: JVD not raised. Mass not palpable. RESPIRATORY: Respiratory effort normal. Lungs trace breath sound. Right-sided chest tube CARDIOVASCULAR: First and second sounds normal. No edema. ABDOMEN: Soft. Liver and spleen not palpable. No tenderness. No mass palpable. PSYCHIATRY: Alert and oriented x3. Mood and affect normal. INVESTIGATIONS, reviewed in the clinical context: June 05: White count 8.9 hemoglobin 9.4 potassium 4 creatinine 0.7 June 04: White count 9.4 hemoglobin 9.3 platelets 324 sodium 134 potassium 4 creatinine 0.75. Procalcitonin 0.06 CT chest [June 04]: Right-sided pigtail pleural catheter. Right empyema cavity smaller from 5 cm down to 1.3 cm. One of the cavity remains thickened at 1.5 cm. Found at the epistaxis. Mild groundglass of densities throughout the left lung. 2-D echocardiogram: EF 55-60%. Moderately increased septal wall thickness. Moderate aortic valve sclerosis/moderate aortic stenosis peak gradient 46 mm, mean gradient 26 mm. Pleural fluid cytology: Negative for malignant cells. Assessment/Plan: -Left-sided Empyema /intrapulmonary abscess s/p pig tail cath 05/31/23 , causing sepsis: Improving IV Unasyn. IV vancomycin. Pleural fluid cultures negative up until now -Sepsis from above. Better -Hypotension, resolved -Paroxysmal P. A fib with RVR, new onset, now back in sinus rhythm. - cardio note reviewed and continue current meds - Eliquis started - Metoprolol 25 mg BID -Diabetes mellitus type II -Resume Actos and metformin, follow Accu-Cheks with sliding scale. Trulicity -Essential hypertension Lopressor -Hyperlipidemia Lipitor -Full code Probably pigtail catheter can be removed. No surgical intervention. Antibiotics per ID. Hopefully home in next 24-48 hours.
--- NOTE | 2023-06-05 14:40 | P.PN ---
Subjective Progress Note Date: 06/05/23 Principal diagnosis: Empyema Patient is a 63-year-old male with a past medical history significant for hypertension hyperlipidemia diabetes mellitus apparently was diagnosed with pleurisy/pneumonia in mid March and has been treated with a course of antibiotics, subsequently did not have complete recovery complaining of fatigue and chills CT of the chest concerning for empyema patient is status post chest tube insertion on 05/31/2023. On today's evaluation that is 06/05/2023, patient remains to be afebrile, the patient is breathing comfortably on room air, the patient did have pain at the right chest tube site however denies any worsening no worsening cough or sputum production no nausea no vomiting no abdominal pain no diarrhea Patient is a white count 8.9, creatinine 0.70, pleural fluid cultures currently pending Objective - Vital Signs Vital signs: Vital Signs Temp 98.0 F 06/05/23 08:00 Pulse 77 06/05/23 08:00 Resp 16 06/05/23 08:00 BP 146/65 06/05/23 08:00 Pulse Ox 95 06/05/23 08:00 FiO2 Intake & Output 06/04/23 06/05/23 06/05/23 18:59 06:59 18:59 Intake Total 330 350 Output Total 0 20 0 Balance 330 -20 350 Weight 98.7 kg Intake: Oral 330 350 Output: Chest Tube Drainage 20 Pleural Catheter Right 20 Posterior Chest Stool 0 0 0 Other: # Voids 3 4 # Bowel Movements 1 - Exam GENERAL DESCRIPTION: An elderly male lying in bed in no distress RESPIRATORY SYSTEM: Unlabored breathing , decreased breath sounds at bases HEART: S1 S2 regular rate and rhythm , ABDOMEN: Soft , no tenderness EXTREMITIES: No edema feet - Labs CBC & Chem 7: 06/05/23 08:55 06/05/23 08:55 Labs: Abnormal Lab Results - Last 24 Hours (Table) 06/04/23 06/04/23 06/04/23 Range/Units 11:21 16:33 19:57 RBC (4.30-5.90) m/uL Hgb (13.0-17.5) gm/dL Hct (39.0-53.0) % Chloride (98-107) mmol/L Glucose (74-99) mg/dL POC Glucose (mg/dL) 192 H 166 H 230 H (70-110) mg/dL Magnesium (1.6-2.3) mg/dL 06/05/23 06/05/23 Range/Units 08:55 08:55 RBC 3.10 L (4.30-5.90) m/uL Hgb 9.4 L (13.0-17.5) gm/dL Hct 28.9 L (39.0-53.0) % Chloride 108 H (98-107) mmol/L Glucose 163 H (74-99) mg/dL POC Glucose (mg/dL) (70-110) mg/dL Magnesium 1.5 L (1.6-2.3) mg/dL Microbiology - Last 24 Hours (Table) 05/31/23 09:30 Gram Stain - Final Pleural Fluid Body Fluid Culture - Final 05/30/23 10:50 Blood Culture - Final Blood 05/30/23 11:23 Blood Culture - Final Blood Assessment and Plan (1) Empyema lung Current Visit: Yes Status: Acute Code(s): J86.9 - PYOTHORAX WITHOUT FISTULA SNOMED Code(s): 55625034 Plan: 1patient with right-sided empyema in this patient has been diagnosed with a pneumonia in mid March and treated with a course of antibiotic patient not very clear about the name of that antibiotic patient is s/p chest tube placement on 05/31/2023 however the culture has not been finalized so far it is negative for any resistant gram-positive or gram-negative pathogen question of possible anaerobic pathogen. 2patient did have a repeat CT of the chest completed on 06/04/2023 and it shows improvement 3patient to continue with with Unasyn 3 g every 6 hours, however discontinue vancomycin as no resistant bacteria has been grown possible plan for long course of oral Augmentin on discharge discuss with the pulmonary Dictation was produced using [employer] dictation software. please excuse any g rammatical, word or spelling errors. Time with Patient: Less than 30
[2023-06-05 16:37] LABS: Glucose,Whole Blood 302 mg/dL (70-110)
--- NOTE | 2023-06-05 17:41 | P.PN ---
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 The patient was struggling with a pneumonia a few months ago. Because he continues to be symptomatic interim of cough productive of sputum as well as weight loss as well as multiple other symptoms he underwent a computed tomography scan and that showed fluid collection in the right pleural space consistent of possible abscess and infection. The patient was subsequently admitted and started on antibiotic. We consulted to see the patient because of atrial fibrillation with RVR which is ne w to him. The patient never been diagnosed was atrial fibrillation before. The patient was asymptomatic in terms of heart racing or fluttering or dizziness or lightheadedness or any symptoms of chest pain or chest discomfort. He continues to be in atrial fibrillation with overall controlled heart rate on the current dose of Cardizem IV. He was on Lovenox at a daily dose which I increased it to twice a day at this point. We'll consider starting the patient on oral anticoagulation once we know that he doesn't need any further surgical procedure. An echocardiogram is in process to be done The examination is remarkable for stable vital signs with irregular rhythm and diminished breathing sounds over the right side with evidence of pigtail catheter in the right chest. No lower extremity edema noted June [id number] The patient was seen and evaluated this morning. He was converted to normal sinus mechanism has been maintaining normal sinus mechanism as well. He is on metoprolol orally. He is on Lovenox twice a day. I will keep him on the current dose of Lovenox which is a therapeutic dose to be noted that the patient does not require any surgical intervention and at that point we'll consider switching the patient into oral anticoagulation. Beside that the echo revealed normal biventricular dimension and systolic function was evidence of moderate aortic stenosis and mild aortic insufficiency. He is asymptomatic at this point. He continues on antibiotic as well. The examination is remarkable for regular rhythm with a systolic murmur at the right upper sternal border and diminished breathing sounds mostly on the right than the left. 06/04/2023 Patient examined this morning at the bedside. Patient denies chest pain or pressure. He denies shortness of breath. Telemetry reveals sinus mechanism in the 70s. He remains on therapeutic Lovenox. PHYSICAL EXAM: VITAL SIGNS: Reviewed. GENERAL: Well-developed in no acute distress. NECK: Supple. No JVD or thyromegaly LUNGS: Respirations even and unlabored. Lungs essentially clear to auscultation bilaterally. HEART: Regular rate and rhythm. S1 and S2 heard. Systolic murmur noted. EXTREMITIES: Normal range of motion. No clubbing or cyanosis. Peripheral pulses intact. No lower extremity edema ASSESSMENT: Right lung abscess/empyema Status post pigtail catheter insertion and drainage New-onset paroxysmal atrial fibrillation, currently maintaining sinus mechanism Valvular heart disease Hypertension Hyperlipidemia Diabetes PLAN: Discontinue Lovenox. Begin Eliquis 5mg BID. Continue additional cardiac medications patient is cleared to be discharged from Cardiac standpoint. Objective - Vital Signs Vital signs: Vital Signs Temp 98.0 F 06/05/23 08:00 Pulse 75 06/05/23 16:00 Resp 18 06/05/23 16:00 BP 156/78 06/05/23 16:00 Pulse Ox 97 06/05/23 16:00 FiO2 Intake & Output 06/04/23 06/05/23 06/05/23 18:59 06:59 18:59 Intake Total 330 575 Output Total 0 20 0 Balance 330 -20 575 Weight 98.7 kg Intake: Oral 330 575 Output: Chest Tube Drainage 20 Pleural Catheter Right 20 Posterior Chest Stool 0 0 0 Other: # Voids 3 4 2 # Bowel Movements 1 - Labs CBC & Chem 7: 06/05/23 08:55 06/05/23 08:55 Labs: Abnormal Lab Results - Last 24 Hours (Table) 06/04/23 06/05/23 06/05/23 Range/Units 19:57 08:55 08:55 RBC 3.10 L (4.30-5.90) m/uL Hgb 9.4 L (13.0-17.5) gm/dL Hct 28.9 L (39.0-53.0) % Chloride 108 H (98-107) mmol/L Glucose 163 H (74-99) mg/dL POC Glucose (mg/dL) 230 H (70-110) mg/dL Magnesium 1.5 L (1.6-2.3) mg/dL 06/05/23 06/05/23 Range/Units 11:24 16:35 RBC (4.30-5.90) m/uL Hgb (13.0-17.5) gm/dL Hct (39.0-53.0) % Chloride (98-107) mmol/L Glucose (74-99) mg/dL POC Glucose (mg/dL) 128 H 302 H (70-110) mg/dL Magnesium (1.6-2.3) mg/dL Microbiology - Last 24 Hours (Table) 05/31/23 09:30 Anaerobic Culture - Final Pleural Fluid 05/31/23 09:30 Gram Stain - Final Pleural Fluid Body Fluid Culture - Final 05/30/23 10:50 Blood Culture - Final Blood 05/30/23 11:23 Blood Culture - Final Blood
[2023-06-05 20:04] LABS: Glucose,Whole Blood 264 mg/dL (70-110)
[2023-06-05] MEDS ORDERED: LISINOPRIL-HCTZ 20-12.5 MG 1 EACH TAB PO SCH (21:00)
[2023-06-05] MEDS: INSULIN DETEMIR (LEVEMIR) 100 UNIT/ML SYR SQ SCH (21:32)
[2023-06-05] MEDS: ATORVASTATIN 20 MG TAB PO SCH (21:33)
[2023-06-05] MEDS: MELATONIN 5 MG TABLET PO SCH (21:33)
[2023-06-05] MEDS: PIOGLITAZONE 15 MG TAB PO SCH (21:33)
[2023-06-05] MEDS ORDERED: VANCOMYCIN 1,500 MG in SODIUM CHLORIDE 0.9% 500 ML 500 ML IVPB SCH (22:00)
[2023-06-06 04:23] VITALS: PULSE 76
[2023-06-06 06:21] LABS: Glucose,Whole Blood 117 mg/dL (70-110)
[2023-06-06] MEDS: AMPICILLIN-SULBACTAM 3 GM in SODIUM CHLORIDE 0.9% 100 ML IVPB SCH (06:30)
[2023-06-06] MEDS: INSULIN ASPART (NovoLOG) 100 UNIT/ML VIAL SQ SCH ×2 (06:35→12:25)
[2023-06-06] MEDS: metFORMIN 500 MG TAB PO SCH (06:46)
[2023-06-06] MEDS: THIAMINE 100 MG TAB PO SCH (08:52)
[2023-06-06] MEDS: METOPROLOL TARTRATE 25 MG TAB PO SCH (08:52)
[2023-06-06] MEDS: APIXABAN 5 MG TAB PO SCH (08:52)
[2023-06-06] MEDS: FOLIC ACID 1 MG TAB PO SCH (08:52)
[2023-06-06] MEDS ORDERED: Dulaglutide [Trulicity] 1.5 MG/0.5 ML Each SQ SCH (09:00)
[2023-06-06 09:06] VITALS: BMI 33.0
[2023-06-06 09:53] VITALS: BP 115/64; RESP 18; TEMP 98.6
--- NOTE | 2023-06-06 10:39 | P.PN ---
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 The patient was struggling with a pneumonia a few months ago. Because he continues to be symptomatic interim of cough productive of sputum as well as weight loss as well as multiple other symptoms he underwent a computed tomography scan and that showed fluid collection in the right pleural space consistent of possible abscess and inf ection. The patient was subsequently admitted and started on antibiotic. We consulted to see the patient because of atrial fibrillation with RVR which is new to him. The patient never been diagnosed was atrial fibrillation before. The patient was asymptomatic in terms of heart racing or fluttering or dizziness or lightheadedness or any symptoms of chest pain or chest discomfort. He continues to be in atrial fibrillation with overall controlled heart rate on the current dose of Cardizem IV. He was on Lovenox at a daily dose which I increased it to twice a day at this point. We'll consider starting the patient on oral anticoagulation once we know that he doesn't need any further surgical procedure. An echocardiogram is in process to be done The examination is remarkable for stable vital signs with irregular rhythm and diminished breathing sounds over the right side with evidence of pigtail catheter in the right chest. No lower extremity edema noted June [id number] The patient was seen and evaluated this morning. He was converted to normal sinus mechanism has been maintaining normal sinus mechanism as well. He is on metoprolol orally. He is on Lovenox twice a day. I will keep him on the current dose of Lovenox which is a therapeutic dose to be noted that the patient does not require any surgical intervention and at that point we'll consider switching the patient into oral anticoagulation. Beside that the echo revealed normal biventricular dimension and systolic function was evidence of moderate aortic stenosis and mild aortic insufficiency. He is asymptomatic at this point. He continues on antibiotic as well. The examination is remarkable for regular rhythm with a systolic murmur at the right upper sternal border and diminished breathing sounds mostly on the right than the left. 06/04/2023 Patient examined this morning at the bedside. Patient denies chest pain or pressure. He denies shortness of breath. Telemetry reveals sinus mechanism in the 70s. He remains on therapeutic Lovenox. 06/06/2023 Patient examined this morning at the bedside. Patient denies chest pain or pressure. He denies shortness of breath. Telemetry reveals sinus mechanism with a heart rate in the 70s. He has been transitioned to oral anticoagulation. Case management consulted for coverage and patient's co-pay is $4 a month. PHYSICAL EXAM: VITAL SIGNS: Reviewed. GENERAL: Well-developed in no acute distress. NECK: Supple. No JVD or thyromegaly LUNGS: Respirations even and unlabored. Lungs essentially clear to auscultation bilaterally. HEART: Regular rate and rhythm. S1 and S2 heard. Systolic murmur noted. EXTREMITIES: Normal range of motion. No clubbing or cyanosis. Peripheral pulses intact. No lower extremity edema ASSESSMENT: Right lung abscess/empyema Status post pigtail catheter insertion and drainage New-onset paroxysmal atrial fibrillation, currently maintaining sinus mechanism Valvular heart disease Hypertension Hyperlipidemia Diabetes PLAN: Continue oral anticoagulation with Eliquis. Per case management, co-pay is $4 a month Pulmonary following. Antibiotics per infectious disease Patient is stable for discharge from a cardiac standpoint We will sign off. Please reconsult if needed. Nurse practitioner note has been reviewed by physician. Signing provider agrees with the documented findings, assessment, and plan of care. Objective - Vital Signs Vital signs: Vital Signs Temp 98.6 F 06/06/23 08:05 Pulse 76 06/06/23 08:05 Resp 18 06/06/23 08:05 BP 115/64 06/06/23 08:05 Pulse Ox 94 L 06/06/23 08:50 FiO2 Intake & Output 06/05/23 06/06/23 06/06/23 18:59 06:59 18:59 Intake Total 685 480 Output Total 0 310 Balance 685 -310 480 Weight 98.7 kg Intake: Oral 685 480 Output: Chest Tube Drainage 10 Pleural Catheter Right 10 Posterior Chest Urine 300 Stool 0 0 Other: # Voids 2 1 - Labs CBC & Chem 7: 06/05/23 08:55 06/05/23 08:55 Labs: Abnormal Lab Results - Last 24 Hours (Table) 06/05/23 06/05/23 06/05/23 Range/Units 11:24 16:35 20:02 POC Glucose (mg/dL) 128 H 302 H 264 H (70-110) mg/dL 06/06/23 Range/Units 06:20 POC Glucose (mg/dL) 117 H (70-110) mg/dL Microbiology - Last 24 Hours (Table) 05/31/23 09:30 Anaerobic Culture - Final Pleural Fluid 05/31/23 09:30 Gram Stain - Final Pleural Fluid Body Fluid Culture - Final
[2023-06-06 11:25] LABS: Glucose,Whole Blood 211 mg/dL (70-110)
[2023-06-06] MEDS ORDERED: VANCOMYCIN TROUGH DUE 1 EACH MISC MISCELLANE ONE (13:00)
--- NOTE | 2023-06-06 13:36 | P.PN ---
Subjective Progress Note Date: 06/06/23 63-year-old male who was sent over to the emergency room, by my partner, for empyema, as a complication of a previous episode of pneumonia, and parapneumonic effusion. Apparently, the patient got sick back in March. He apparently saw his primary care doctor was treated for pneumonia. Subsequent to that, because he wasn't really getting any better, he had a CAT scan, followed by another CAT scan, which revealed a complex fluid collection in the right chest. The patient was seen by my partner today, and sent to the hospital for evaluation by interventional radiology for pigtail catheter placement, and instillation of TPA and alpha dornase. According to patient's , the patient hasn't been feeling well since mid March. He's been losing weight, poor color, and just not feeling well. He has had fever, cough, and some phlegm production. In addition, he's had some pain in the right chest and back area. The patient has a history of diabetes, hyperlipidemia, and hypertension. He is a lifelong nonsmoker. White count is 17,000, hemoglobin 11.1, hematocrit 34.6, and a platelet count of 40 5,000. Sodium 136, potassium 4.5, chlorides 107, CO2 20, anion gap 9, BUN 33, and creatinine 0.96. Glucose 49. Albumin 3.3. Chest x-ray shows an air-fluid level within the right chest, and either a large cavity and/or abscess. The patient's currently on room air. He was given a dose of Rocephin and vancomycin. The patient is seen today 05/31/2023 in follow-up, in the emergency department. He is currently sitting up on a stretcher. Awake and alert in no acute distress. Somewhat restless. He is maintaining good O2 saturations in the mid 90s on room air. He's afebrile. Hemodynamically stable. Computed tomography scan of the chest revealed a collection of the right lung base with air fluid level, concerning for intrapulmonary abscess versus empyema. White count 14.2. Hemoglobin 10.4. Platelets 382. Sodium 137. Potassium 4.7. Bicarb 20. BUN 16. Creatinine 0.55. Glucose 117. He is continued on cefepime and vancomycin. Plan is for pigtail catheter placement today by interventional radiology. Progress note dated 06/01/2023. The patient is seen today in room 356. He is currently on room air. Is not receiving any IV fluids. He is receiving both vancomycin and cefepime for his suspected empyema. A pigtail catheter was placed on the right side, they interventional radiology yesterday. The patient had about 85 mL of output. White count 12.1, hemoglobin 10.2, hematocrit 31.9, within normal platelet count. Sodium 135, potassium 4.9, chlorides 105, CO2 24, BUN 12, and creatinine 0.54. Cultures are currently pending. Chest x-ray shows a right-sided pigtail catheter, with improvement of the abscess in the right lower lobe. Progress note dated 06/02/2023. 63-year-old male seen today in room 356. The patient had a pigtail catheter placed for an empyema, and the right lung. Apparently last night, the patient developed atrial fibrillation. Currently, he's on Cardizem 5 mg an hour. He's on room air. No IV fluids. He is getting vancomycin and cefepime currently, for his empyema. White count 10.9, hemoglobin 11.2, hematocrit 34.4, and platelet count is 353,000. Sodium 136, potassium 4.5, chlorides 107, CO2 21, BUN 10, creatinine 0.57. Glucose is 346. Progress note dated 06/03/2023. 63-year-old male seen today in room 356. The patient is doing reasonably well. He is on room air and getting saline at 10 mL an hour. The Cardizem drip, that was on yesterday, for atrial fibrillation, has been turned off. No new lab data today other than a glucose of 132. The patient remains on vancomycin and cefepime. Culture data is negative are pending. On today's evaluation of 06/04/2023, the patient is being seen for a follow-up. The patient is currently on room air oxygen. He has a pigtail catheter in his right chest to drain the right lung abscess. He remains on a combination of IV vancomycin and Unasyn. Infectious diseases on the case. The catheter was inserted on 05/31/2023. The output over the past 24 hours has been minimal. The fluid itself was consistent with empyema. The white cell count was quite elevated and the patient had a glucose of less than 2 and an LDH level of 2500 and above and a total protein level of 3.5 g. The microbiology on that fluid has been essentially negative for now. The fluid was also sent for cytology, results are still pending for now. His most recent labs show a white cell count 11.6 with a hemoglobin of 10 and a platelet count of 360. His BUN is 14 and a creatinine of 0.8. His most recent chest x-rays from 06/01/2023 and there is significant improvement in the right lung collection with small right-sided pleural effusion still present. On today's evaluation of 06/05/2023, the patient is on room air oxygen, afebrile and is calm and comfortable without any signs of any systemic toxicity. The pigtail catheter drained minimal in the order of 10 mL over the past 24 hours and the CAT scan of the chest was completed yesterday, and there is obvious improvement in the right lung empyema. The cavity is much smaller and measuring approximately 1 cm. There is mild amount of fluid and air remaining in the cavity. There is also some rounded atelectasis surrounding the area of empyema. The findings of essentially improved and there is also improvement in the groundglass infiltrates on the left. The patient remains on the same antibiotic coverage. The patient has abdominal discomfort of 8.9 with a hemoglobin of 9.4. BUN is at 9 with a creatinine of 0.7 and a sodium level is at 138. On today's evaluation of 06/06/2023, the patient has no specific complaints. No output from the pigtail catheter. As such, the pigtail catheter was removed today. The patient will be also considered for oral antibiotics at the time of discharge. Currently is on IV Unasyn. He is resting comfortably in bed. Pulse ox is between 94-96% on room air oxygen. He is afebrile. Hemodynamically stable. His white cell count from yesterday was at 8.9 with a hemoglobin of 9.4. BUN was 9 and a creatinine of 0.7. The most recent vancomycin trough level was 31. Objective - Vital Signs Vital signs: Vital Signs Temp 98.6 F 06/06/23 08:05 Pulse 76 06/06/23 08:05 Resp 18 06/06/23 08:05 BP 115/64 06/06/23 08:05 Pulse Ox 94 L 06/06/23 08:50 FiO2 Intake & Output 06/05/23 06/06/23 06/06/23 18:59 06:59 18:59 Intake Total 685 480 Output Total 0 310 Balance 685 -310 480 Weight 98.7 kg Intake: Oral 685 480 Output: Chest Tube Drainage 10 Pleural Catheter Right 10 Posterior Chest Urine 300 Stool 0 0 Other: # Voids 2 1 - Exam No acute distress, oriented 3. Currently on room air. Room air saturation 94%. HEENT examination is grossly unremarkable. Mucous membranes are moist. No oral lesions. Neck supple. Full range of motion. No adenopathy thyromegaly or neck vein distention. Cardiovascular examination reveals regular rhythm rate. S1-S2 normal. No S3 or S4. No discernible murmur noted. Lungs reveal diminished breath sounds throughout the right midlung and right base. Scattered rhonchi noted. No wheezes or crackles. Abdomen soft bowel sounds are heard. No masses or tenderness. Extremities are intact. No cyanosis clubbing or edema. Skin is without rash or lesion. Neurologic examination is brief but nonfocal. - Labs CBC & Chem 7: 06/05/23 08:55 06/05/23 08:55 Labs: Abnormal Lab Results - Last 24 Hours (Table) 06/05/23 06/05/23 06/05/23 Range/Units 11:24 16:35 20:02 POC Glucose (mg/dL) 128 H 302 H 264 H (70-110) mg/dL 06/06/23 Range/Units 06:20 POC Glucose (mg/dL) 117 H (70-110) mg/dL Microbiology - Last 24 Hours (Table) 05/31/23 09:30 Anaerobic Culture - Final Pleural Fluid 05/31/23 09:30 Gram Stain - Final Pleural Fluid Body Fluid Culture - Final Assessment and Plan Plan: Right lung abscess/empyema post pigtail catheter insertion and drainage. The fluid is consistent with possible and the cultures are negative and the patient remains on a combination of IV Unasyn and vancomycin for now. Cultures are all negative. Last chest x-ray from 06/01/2023 showed improvement in the right lung opacity. The follow-up CAT scan of the chest was obtained on 06/04/2023 showed marked improvement in the empyema and the output from the pigtail catheter is almost 0 and the patient is afebrile and hemodynamically stable without any leukocytosis or any significant shortness of breath. He remains on Unasyn and vancomycin. Chronic respiratory illness characterized by weight loss, cough, phlegm production, fatigue, and chest pain, and an x-ray that suggested a fluid-filled abscess in the right chest. Empyema/lung abscess, right lower lobe. S/P pigtail catheter insertion, right posterior chest, 05/31/2023. Recent episode of pneumonia, with an illness that began about 6 weeks ago. History of hypertension. History of diabetes. History of hyperlipidemia. Lifelong nonsmoker. Plan: CAT scan findings showed improvement in the right lung empyema with minimal amount of fluid and atelectasis in the right lung base. Groundglass changes in the left improved. THE OUTPUT FROM THE PIGTAIL CATHETER IS 0 I removed the pigtail catheter Discussed the case with infectious disease and the patient will be going home on Augmentin Outpatient follow-up Continue home medications including diabetes medication Case was discussed with infectious disease and the medical team.
--- NOTE | 2023-06-06 19:07 | P.DS ---
Providers Date of admission: 05/30/23 11:21 Expected date of discharge: 06/06/23 Attending physician: Nghia Aguirre Consults: 05/30/23 11:21 Consult Physician Routine Consulting Provider: Jairo Morris Consult Reason/Comments: Empyema Do you want consulting provider notified?: Yes 06/01/23 22:34 Consult Physician Urgent Consulting Provider: Zaheer Amador Consult Reason/Comments: afib with rvr Do you want consulting provider notified?: Yes 06/03/23 14:10 Consult Physician Routine Consulting Provider: Aura Law Consult Reason/Comments: empyema, no growth on culture Do you want consulting provider notified?: Yes Primary care physician: [facility] Course: Patient is a 63-year-old male with diabetes, hypertension, and dyslipidemia who was directed to the ER by Dr. Helder newell due to concerns for empyema and right sided pleural effusion. Patient was initially diagnosed with pneumonia in March and was prescribed antibiotics he continued to have generalized fatigue and has lost approximately 30 pounds in the last 1-2 months. Primary care physician repeated CT of the chest which demonstrated loculated pleural effusion with air fluid levels and concern for empyema and the patient was subsequently referred to pulmonology. On his first appointment with pulmonology on 05/30 he was referred to the emergency department. On arrival to the ER he was hypotensive with a blood pressure of 78/50. Laboratory analysis was remarkable for white blood cell count of 17, hemoglobin 11.1, sodium 136, CO2 20, BUN 33, glucose of 49. Chest x-ray showed right-sided pleural effusion with air fluid levels in the mid chest, left atrial enlargement. The patient was subsequently admitted and pulmonary was consulted. Patient was started on cefepime, blood cultures were ordered, and he was started on fluids at 130 mL/h. he was seen by pulmonary who recommended pigtail catheter and continued IV antibiotics. He developed tachycardia overnight on 06/01 and was subsequently found to have atrial fibrillation with rapid ventricular response. He was started on full dose Lovenox and was given a trial of IV metoprolol and then necessitated a Cardizem drip. Cardiology was consulted. He was started on oral metoprolol and Cardizem was discontinued. Echo showed a preserved EF with moderate aortic stenosis 06/04/2023: I assumed care of the patient today. Some cough is present. Occasional phlegm. Appetite is good. No pain. About 20 mL/12 hour output to the right chest tube. Computed tomography scan done today shows cavity to be smaller from down from 5 cm to 1.3 cm. One of the cavity remains thickened at 1.5 cm. Rounded atelectasis. 06/05/2023: Comfortable. Some cough. Minimal output from the pigtail catheter. Cultures remain negative. Planning for pigtail catheter. Removed. Antibiotics to be discharged as per ID.. 06/06/2023: Doing well. Pigtail catheter was removed. Some residual cough. No sputum. Communicated with ID. Discharged on oral Augmentin. Patient follow-up outpatient with ID and pulmonary. Patient to use incentive spirometry. Discussed Discussion and discharge planning more than 35 minutes On examination: VITAL SIGNS: 98.6, 76, 18, 115/64, 6 % room air GENERAL APPEARANCE: Sitting at the edge of the bed, comfortable HEENT: Normal external appearance of nose and ear. Oral cavity normal EYES: Pupils equal. Conjunctiva normal. NECK: JVD not raised. Mass not palpable. RESPIRATORY: Respiratory effort normal. Lungs trace breath sound. It tail catheter removed CARDIOVASCULAR: First and second sounds normal. No edema. ABDOMEN: Soft. Liver and spleen not palpable. No tenderness. No mass palpable. PSYCHIATRY: Alert and oriented x3. Mood and affect normal. INVESTIGATIONS, reviewed in the clinical context: June 05: White count 8.9 hemoglobin 9.4 potassium 4 creatinine 0.7 June 04: White count 9.4 hemoglobin 9.3 platelets 324 sodium 134 potassium 4 creatinine 0.75. Procalcitonin 0.06 CT chest [June 04]: Right-sided pigtail pleural catheter. Right empyema cavity smaller from 5 cm down to 1.3 cm. One of the cavity remains thickened at 1.5 cm. Found at the epistaxis. Mild groundglass of densities throughout the left lung. 2-D echocardiogram: EF 55-60%. Moderately increased septal wall thickness. Moderate aortic valve sclerosis/moderate aortic stenosis peak gradient 46 mm, mean gradient 26 mm. Pleural fluid cytology: Negative for malignant cells. Assessment/Plan: -Left-sided Empyema /intrapulmonary abscess s/p pig tail cath 05/31/23 , causing sepsis: Improving IV Unasyn. IV vancomycin. Pleural fluid cultures negative up until now. Pigtail catheter was removed. Discharged on Augmentin 875 one tablet twice a day for 30 days -Sepsis from above. Better -Hypotension, resolved -Paroxysmal P. A fib with RVR, new onset, now back in sinus rhythm. - cardio note reviewed and continue current meds - Eliquis s - Metoprolol 25 mg BID -Diabetes mellitus type II Actos and metformin, follow Accu-Cheks with sliding scale. Trulicity -Essential hypertension Lopressor -Hyperlipidemia Lipitor -Full code Disposition: Home Plan - Discharge Summary Discharge Rx Participant: Yes New Discharge Prescriptions: New Apixaban [Eliquis] 5 mg PO BID #60 tab Folic Acid 1 mg PO DAILY #30 tab Acetaminophen Tab [Tylenol] 650 mg PO Q6HR PRN tab PRN Reason: Mild Pain Or Fever > 100.5 Thiamine [Vitamin B-1] 100 mg PO DAILY #30 tab Amoxic-Pot Clav 875-125Mg [Augmentin 875-125] 1 tab PO Q12HR 30 Days #60 tab Metoprolol Tartrate [Lopressor] 25 mg PO BID #60 tab Continue Lisinopril-Hctz 20-12.5 mg [Zestoretic 20-12.5] 1 tab PO BID glipiZIDE [Glucotrol] 10 mg PO BID Pioglitazone [Actos] 15 mg PO HS Dulaglutide [Trulicity] 1.5 mg SQ WE Atorvastatin [Lipitor] 20 mg PO HS metFORMIN HCL 1,000 mg PO BID Discontinued Ibuprofen [Motrin Ib] 800 mg PO BID Discharge Medication List Atorvastatin [Lipitor] 20 mg PO HS 05/30/23 [History] Dulaglutide [Trulicity] 1.5 mg SQ WE 05/30/23 [History] Lisinopril-Hctz 20-12.5 mg [Zestoretic 20-12.5] 1 tab PO BID 05/30/23 [History] Pioglitazone [Actos] 15 mg PO HS 05/30/23 [History] glipiZIDE [Glucotrol] 10 mg PO BID 05/30/23 [History] metFORMIN HCL 1,000 mg PO BID 05/30/23 [History] Acetaminophen Tab [Tylenol] 650 mg PO Q6HR PRN tab 06/06/23 [Rx] Amoxic-Pot Clav 875-125Mg [Augmentin 875-125] 1 tab PO Q12HR 30 Days #60 tab 06/06/23 [Rx] Apixaban [Eliquis] 5 mg PO BID #60 tab 06/06/23 [Rx] Folic Acid 1 mg PO DAILY #30 tab 06/06/23 [Rx] Metoprolol Tartrate [Lopressor] 25 mg PO BID #60 tab 06/06/23 [Rx] Thiamine [Vitamin B-1] 100 mg PO DAILY #30 tab 06/06/23 [Rx] Follow up Appointment(s)/Referral(s): Carolina Lee MD [STAFF PHYSICIAN] - 06/27/23 1:15 pm Zaheer Amador MD [STAFF PHYSICIAN] - 1 Week (office will call you with appointment) Pete Stock MD [Primary Care Provider] - 1-2 days (please call for appointment) Aura Law MD [STAFF PHYSICIAN] - 06/11/23 1:45 pm Patient Instructions/Handouts: Pleural Empyema (DC) Activity/Diet/Wound Care/Special Instructions: abx per dr law send home with IS Discharge Disposition: HOME SELF-CARE
== END 2023-06-06 14:13 | disposition home or self-care (01) | DRG 871 ==
LOC: EC 10:16 → 3SCARD 11:21
PROVIDERS: ADMIT Hospitalist; ATTEND Hospitalist
PROC: 0W9930Z Drainage of Right Pleural Cavity with Drainage Device, Percutaneous Approach (ICD-10-PCS; principal; 2023-05-31)
DX: A41.9 Sepsis, unspecified organism (principal); J85.2 Abscess of lung without pneumonia; J91.8 Pleural effusion in other conditions classified elsewhere; E11.9 Type 2 diabetes mellitus without complications; I48.0 Paroxysmal atrial fibrillation; I10 Essential (primary) hypertension; R63.4 Abnormal weight loss; I35.2 Nonrheumatic aortic (valve) stenosis with insufficiency; E78.5 Hyperlipidemia, unspecified; R63.0 Anorexia; Z96.653 Presence of artificial knee joint, bilateral; Z68.33 Body mass index [BMI] 33.0-33.9, adult; Z79.899 Other long term (current) drug therapy; Z79.84 Long term (current) use of oral hypoglycemic drugs; Z79.85 Long-term (current) use of injectable non-insulin antidiabetic drugs; Z79.1 Long term (current) use of non-steroidal anti-inflammatories (NSAID); Z87.01 Personal history of pneumonia (recurrent)
CPT/HCPCS: 32551; 36415; 71045; 71046; 71250; 71260; 80048; 80053; 80202; 82150; 82565; 82945; 83036; 83605; 83615; 83735; 83880; 84145; 84157; 84484; 85025; 85027; 85610; 85730; 86140; 87040; 87070; 87075; 87102; 87116; 87205; 87206; 88108; 88305; 89050; 93306; 94760; 96365; 96366; 96367; 96375; 99285

== ENCOUNTER → 2023-05-30 | Outpatient (CLI) | payer OTHER ==
--- NOTE | 2023-05-30 11:06 | US ---
EXAMINATION TYPE: US chest DATE OF EXAM: 05/30/2023 COMPARISON: Same day CXR CLINICAL INDICATION: Male, 63 years old with history of J90 PLEURAL EFFUSION; Effusion TECHNIQUE: Targeted ultrasound of the posterior lower bilateral hemithoraces EXAM MEASUREMENTS: Right Pleural Effusion pocket size: 6.0 cm Right skin surface to fluid distance: 3.9 cm Left Pleural Effusion pocket size: 0 cm Right side NOT marked for possible thoracentesis outside the dept. Per Dr. Lee fluid too thick- no need to jono Left side NOT marked for possible thoracentesis outside the dept. Pulmonologists are able to review the images in the patient?s EMR. Results called to Dr. Lee at time of exam IMPRESSIONS: Collection in the posterior right lung appears to be complex. The skin was not marked fo r thoracentesis.
== END | disposition home or self-care (01) ==
LOC: RADUSWWP 09:44
PROVIDERS: ATTEND Internal Medicine
DX: J90 Pleural effusion, not elsewhere classified (principal)
CPT/HCPCS: 76604

== ENCOUNTER → 2025-04-15 | Outpatient (CLI) | payer MEDICARE, OTHER ==
[2025-04-15 15:40] LABS: African American GFR (CKD) >90 (>60 ml/min/1.73 sqM); Blood Urea Nitrogen 26 mg/dL (9-20); Non-African American GFR(CKD) >90 (>60 ml/min/1.73 sqM)
--- NOTE | 2025-04-15 16:49 | CT ---
EXAMINATION TYPE: CT angio chest CT DLP: 657.1 mGycm, Automated exposure control for dose reduction was used. DATE OF EXAM: 04/15/2025 4:14 PM COMPARISON: CT chest 06/04/2023 CLINICAL INDICATION:Male, 65 years old with history of I71.20 THORACIC AORTIC ANEURYSM; thoracic aort ic aneurysm TECHNIQUE/CONTRAST: CTA scan of the thorax is performed with IV Contrast, patient injected with 100 mL of Isovue 370. 3D reconstructed images are created on an independent workstation and reviewed.. FINDINGS: Lungs/Pleura: No pneumothorax. Decreased small right pleural effusion with adjacent atelectasis/scarr ing from prior exam. Linear atelectasis along the right major fissure. Additional regions of linear a telectasis within the right lower lobe. No suspicious pulmonary nodule or mass identified. Airway: Large airways are patent. Heart: Cardiomegaly is demonstrated.No pericardial effusion. Mild coronary artery calcifications pres ent. Moderate aortic valvular calcifications. Aortic root measures up to 3.0 cm in diameter. The de scending thoracic aorta measures up to 3.0 cm in diameter. The ascending thoracic aorta measures up t o 3.8 cm in diameter. No evidence for dissection. No central pulmonary embolism definitely identified however phase of exam is not optimal for evaluation for pulmonary emboli. Vasculature: No evidence of aortic aneurysm. Aortic root measures up to 3.0 cm in diameter. The desce nding thoracic aorta measures up to 3.0 cm in diameter. The ascending thoracic aorta measures up to 3 .8 cm in diameter. No evidence for dissection. No central pulmonary embolism definitely identified ho wever phase of exam is not optimal for evaluation for pulmonary emboli. Conventional three-vessel aor tic arch. Mild atherosclerotic calcification of the aorta and its branches. Mediastinum: No enlarged mediastinal hilar lymph nodes greater than 1 cm short axis. Musculoskeletal: No acute osseous abnormalities Soft Tissues: Mildly prominent bilateral axillary lymph nodes measuring up to 1.7 cm on the right and 1.5 cm on the left. Lower neck: No significant findings. Upper Abdomen: Subcentimeter cortical cyst involving the superior pole of the left kidney. No follow- up recommended.. IMPRESSION: 1. Stable ectasia of the ascending thoracic aorta measuring up to 3.8 cm. No thoracic aortic aneurysm . No evidence for dissection. 2. Decreased small right pleural effusion with adjacent atelectasis/scar from prior exam. 3. Few nonspecific mildly prominent bilateral axillary lymph nodes. May be reactive. [facility], , 04/15/2025 4:47 PM
== END | disposition home or self-care (01) ==
LOC: RADCTMAIN 14:46
PROVIDERS: ATTEND Internal Medicine Interventional Cardiology
DX: J90 Pleural effusion, not elsewhere classified (principal); I77.810 Thoracic aortic ectasia
CPT/HCPCS: 82565; 84520; 71275; 36415; Q9967